=== PATIENT | male | born 1940 | race Caucasian/White ===

== ENCOUNTER 2023-11-13 08:36 | Outpatient (AMB) | payer MEDICARE, SELFPAY ==
--- NOTE | 2023-11-13 08:41 | A.OFFVIS_ITS ---
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 Endorses axial back pain with walking, improves with flexion and rest. He was evaluated by neurosurgeon years ago and offered surgery, he was told he would need to learn to walk again afterwards therefore he declined surgery. At that time he did PT which helped and pain had improved. 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 He again tried physical therapy several months ago with no improvement of his pain. He denies pain or fatigue of his legs with walking. Denies radiation of the pain down either lower extremity. Endorses some pain with twisting. No pain increase with coughing or sneezing. Denies pain with lumbar flexion or extension. He denies red flag symptoms including new loss of bowel, bladder or saddle anesthesia. Patient unable to take nonsteroidal anti-inflammatory medication due to current use of Brilinta. He takes Tylenol with minimal improvement. He has tried Voltaren gel, lidocaine patches all without improvement of his pain. Denies history of back surgeries, implantable devices, pacemaker or defibrillator. Recent x-rays reviewed, results as per below [facility] Medical History (Updated 11/13/23 @ 09:25 by Yeni Benedict, PROTOCOL OFFICER, COMMERCIAL ROOFING ESTIMATOR) Spinal stenosis Renal cyst PSA elevation Hypertension Hyperlipemia Review of Systems Const All systems reviewed & are unremarkable except as noted in HPI and below Physical Exam Vital Signs: Last Vital Signs Pulse 84 11/13/23 08:51 BP 164/90 H 11/13/23 08:51 Pulse Ox 97 11/13/23 08:51 Oxygen Delivery Method Room Air 11/13/23 08:51 BMI result Body Mass Index 29.5 General: awake, alert, oriented. Answers questions appropriately. Fully engaged in examination. Skin: warm, dry, intact HEENT: Normocephalic. Hearing intact. Cardiac: External chest normal in appearance. Respiratory: No cough, audible wheezing or stridor. Abdomen: without gross distension. MS: No obvious swelling or deformities. Able to stand on bilateral tiptoes and bilateral heels.? Able to transition from sit to stand unassisted. Ambulates with bilaterally normal heel strike and toe off Lumbar range of motion intact Bilateral lower extremity strength 5/5 SLR with dorsiflexion negative bilaterally Nontender over bilateral PSIS Valsalva negative for pain increase Neurological: Oriented to person, place, time and situation. Thought process intact. No gait abnormalities appreciated. Psychiatric: Appropriate mood and affect. Good judgment and insight. Results Reviewed Results Reviewed: 09/29/23 Assessment & Plan Assessment & Plan (1) Spinal stenosis: Code(s): M48.00 - Spinal stenosis, site unspecified Category: Medical (2) Lumbar spondylosis: Code(s): M47.816 - Spondylosis without myelopathy or radiculopathy, lumbar region Category: Medical Plan Mauro is a very pleasant 83-year-old male who presented to the office today for evaluation and management of his chronic lower back pain. Patient has exhausted conservative therapy including PT, topical NSAIDs, Tylenol all without improvement of his symptoms. Patient unable to take oral NSAIDs due to current use of Brilinta. History, physical exam and provocative testing consistent with lumbar spinal stenosis without neurogenic claudication and lumbar spondylosis. MRI of the lumbar spine without contrast ordered for evaluation. Patient will follow-up after the MRI, at which time we further discuss treatment options pending the results. All questions and concerns answered, patient agrees with the plan. Patient will follow-up in the office after MRI for review, sooner if needed Orders: Orders 2 MR lumbar spine wo con Today M54.9 - Dorsalgia, unspecified Coding Level of Care Code New Pt Level 4 (70962) Diagnoses Spinal stenosis M48.00 Lumbar spondylosis M47.816
[2023-11-13 08:51] VITALS: BP 164/90; PULSE 84; O2SAT 97; BMI 29.5
== END 2023-11-13 09:19 | disposition home or self-care (01) ==
PROVIDERS: PCP Internal Medicine; Visit Provider Registered Nurse Emergency
DX: M48.00 Spinal stenosis, site unspecified (principal); M47.816 Spondylosis without myelopathy or radiculopathy, lumbar region
CPT/HCPCS: 99203

== ENCOUNTER → 2023-11-13 08:36 | Outpatient (BNVA) | payer MEDICARE, SELFPAY | PROVIDERS: PCP Internal Medicine; Visit Provider Registered Nurse Emergency | DX: M48.00 Spinal stenosis, site unspecified (principal); M47.816 Spondylosis without myelopathy or radiculopathy, lumbar region | CPT/HCPCS: 99202 ==

== ENCOUNTER 2024-01-05 08:22 | Outpatient (REF) | payer MEDICARE, SELFPAY ==
--- NOTE | ~2024-01-05 | MR_ITS ---
EXAMINATION: MR LUMBAR SPINE WITHOUT CONTRAST CLINICAL INFORMATION: Dorsalgia and back pain. COMPARISON: MRI scan of the lumbar spine CT as 04/01/2021. TECHNIQUE: MRI of the lumbar spine was obtained using routine sequences without contrast. FINDINGS: VERTEBRAL BODIES AND PARASPINAL STRUCTURES: There is a sigmoid scoliosis, convex to the right in the mid lumbar region, unchanged. On the sagittal images there are mild grade 1 anterolistheses of L2 on L3 and L4 on L5, and there is a retrolisthesis of L1 on L2. 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 There is marked narrowing of intervertebral disc height with partial fusion of the vertebral bodies at L5-S1. There are prominent bilateral lateral osteophytes at this level. Narrowing of intervertebral disc height is also demonstrated at other levels with loss of signal consistent with multilevel disc desiccation. There are mild degenerative endplate contour changes with mild edematous signal anteriorly and toward the right at L5 which has developed since the prior study. There are ankylosis changes of the sacroiliac joints. Vertebral body heights are maintained and there are no acute fractures. There are Schmorl's nodes at adjacent endplates at multiple levels. There is increased T1 and T2 signal in the body of L2 diffusely consistent with a large hemangioma. A small hemangioma is seen in the body of T11. Overall, marrow signal is slightly heterogenous. The infrarenal abdominal aorta is tortuous. There are multiple bilateral parapelvic and cortical renal cysts which do not need further imaging evaluation. The visualized pelvic structures are unremarkable. CONUS MEDULLARIS AND CAUDA EQUINA: Normal, terminating at the level of L1-L2. The lower thoracic spinal cord appears normal. There is crowding of the cauda equina nerve roots at multiple levels due to spondylosis, most severe at L2-L3 and L3-L4. The filum terminale appears normal. SPINAL LEVELS: T11-T12: There is moderate bilateral facet arthropathy with focal right-sided ligamentum flavum thickening, which narrows the right subarticular recess. There is also distortion of the thecal sac on the right. There is a small posterior disc protrusion with an annular fissure in the midline with some distortion of the ventral thecal sac and narrowing of the subarticular recesses. The neural foramina are patent bilaterally. T12-L1: The facet joints appear normal bilaterally. Disc contour is normal. There is no central stenosis or foraminal narrowing. L1-L2: There is mild bilateral facet arthropathy. There is a broad-based posterior disc protrusion which slightly more prominent on the right and there is mild flattening of the ventral thecal sac with narrowing of the right subarticular recess. There is mild central stenosis. There is a right foraminal disc protrusion impinging on the exiting right L1 nerve root. L2-L3: There is moderate to severe bilateral facet arthropathy with ligamenta flava hypertrophy and facet joint effusions. There is a broad-based posterior disc protrusion which compresses the thecal sac and markedly narrows the bilateral subarticular recesses. There is severe central stenosis. There are left greater than right foraminal disc protrusions, and there is narrowing of the left neural foramen from a disc protrusion and facet osteophyte. Milder foraminal narrowing is seen on the right. L3-L4: There is markedly severe bilateral facet arthropathy with ligamenta flava hypertrophy and a possible synovial cyst developing anteromedially on the left. There is a broad-based posterior disc protrusion which compresses the thecal sac and markedly narrows the bilateral subarticular recesses, which appears slightly more prominent on the left. There is a left foraminal disc protrusion extending far laterally with impingement on the exiting and extraforaminal segments of the left L3 nerve root. A smaller disc protrusion is seen on the right. L4-L5: There is severe bilateral facet arthropathy with ligamenta flava hypertrophy. There is unroofing of the disc as a result of anterolisthesis and there is mild narrowing of the bilateral subarticular recesses with moderate central stenosis. There are bilateral inferior foraminal disc protrusions. L5-S1: There are moderate to severe bilateral facet arthropathic changes. There is a posterior disc osteophyte complex which is more prominent on the left with some flattening of the ventral thecal sac, and disc osteophytes extend into the neural foramina bilaterally with impingement on the exiting L5 nerve roots. There is no central stenosis. MR/MR lumbar spine wo con IMPRESSION: 1. At L2-L3 there is facet arthropathy and there is a broad-based posterior disc protrusion. There is severe central stenosis and there is narrowing of the bilateral subarticular recesses. There is left greater than right foraminal narrowing. 2. At L3-L4 there is markedly severe facet arthropathy. There is a broad-based posterior disc protrusion with marked narrowing of the bilateral subarticular recesses. There is a left foraminal disc protrusion extending far laterally with impingement on the exiting and extraforaminal segments of the left L3 nerve root. 3. At L4-L5 there is severe facet arthropathy. There is anterolisthesis and there is moderate central stenosis. 4. At L5-S1 there are facet arthropathic changes and there is a posterior disc osteophyte complex. There is no central stenosis. There are bilateral foraminal disc osteophyte complexes impinging on the exiting L5 nerve roots. 5. At L1-L2 there is facet arthropathy and there is a posterior disc protrusion. There is mild central stenosis. There is a right foraminal disc protrusion impinging on the exiting right L1 nerve root.
== END 2024-01-05 08:23 | disposition home or self-care (01) ==
LOC: HO.MRI 08:22
PROVIDERS: PCP Internal Medicine; Visit Provider Registered Nurse Emergency
DX: M54.9 Dorsalgia, unspecified (principal)
CPT/HCPCS: 72148

== ENCOUNTER 2024-02-10 10:16 | Outpatient (AMB) | payer MEDICARE, SELFPAY ==
[2024-02-10 10:19] VITALS: BP 138/76; PULSE 78; O2SAT 95; BMI 30.1
--- NOTE | 2024-02-10 10:19 | A.OFFVIS_ITS ---
Vital Signs 02/10/24 10:19 Height 5 ft 9 in Weight 204 lb BMI 30.1 BP 138/76 Blood Pressure Location Rt brachial Position Sitting Pulse 78 Pulse Source Pulse Oximeter Pulse Oximetry (%) 95 Oxygen Delivery Method Room Air Intake Visit Reasons: MRI FOLLOW UP/RESULTS Allergies No Known Allergies Allergy (Verified 02/10/24 10:21) Medication List - Last Reconciled 02/10/24 by Rosalina Chambers albuterol sulfate 90 mcg/actuation (ProAir HFA) 2 puffs inhalation Q6H PRN aspirin 81 mg PO DAILY atorvastatin 40 mg PO DAILY cyclobenzaprine 10 mg PO TID latanoprost 0.005% drps ophthalmic (eye) metoprolol succinate ER (Toprol XL) 25 mg PO DAILY mirtazapine 7.5 mg PO BEDTIME multivitamin 1 tab PO DAILY nifedipine ER 60 mg PO DAILY ticagrelor (Brilinta) 60 mg PO Q12H HPI Comments Details: Patient presents back to the office today for follow-up, review of recent MRI. MRI reviewed, results as per below. Pain today is rated as 4/10, worse with activity. He states over the last several weeks pain has suffering with midline axial back pain of his lower back. He has not been suffering with any pain, weakness, fatigue of his lower extremities even with walking. The pain in his lower back is exacerbated by activity, bending and twisting Denies radiation of the pain down either lower extremity. Denies red flag symptoms including new loss of bowel, bladder or saddle anesthesia. Prior: Mauro is a very pleasant 83-year-old male who presents to the office today for evaluation management of his chronic lower back pain Patient reports he has been suffering with this pain for ?a couple years . Endorses axial back pain with walking, improves with flexion and rest. He was evaluated by neurosurgeon years ago and offered surgery, he was told he would need to learn to walk again afterwards therefore he declined surgery. At that time he did PT which helped and pain had improved. 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 He again tried physical therapy several months ago with no improvement of his pain. He denies pain or fatigue of his legs with walking. Denies radiation of the pain down either lower extremity. Endorses some pain with twisting. No pain increase with coughing or sneezing. Denies pain with lumbar flexion or extension. He denies red flag symptoms including new loss of bowel, bladder or saddle anesthesia. Patient unable to take nonsteroidal anti-inflammatory medication due to current use of Brilinta. He takes Tylenol with minimal improvement. He has tried Voltaren gel, lidocaine patches all without improvement of his pain. Denies history of back surgeries, implantable devices, pacemaker or defibrillator. Recent x-rays reviewed, results as per below [facility] Medical History (Updated 11/13/23 @ 09:25 by Yeni Benedict, ACCOUNTS PAYABLE PROCESSOR, BALLISTICS TESTER) Spinal stenosis Renal cyst PSA elevation Hypertension Hyperlipemia Review of Systems Const All systems reviewed & are unremarkable except as noted in HPI and below Physical Exam Vital Signs: Last Vital Signs Pulse 78 02/10/24 10:19 BP 138/76 02/10/24 10:19 Pulse Ox 95 02/10/24 10:19 Oxygen Delivery Method Room Air 02/10/24 10:19 BMI result Body Mass Index 30.1 General: awake, alert, oriented. Answers questions appropriately. Fully engaged in examination. Skin: warm, dry, intact HEENT: Normocephalic. Hearing intact. Cardiac: External chest normal in appearance. Respiratory: No cough, audible wheezing or stridor. Abdomen: without gross distension. MS: No obvious swelling or deformities. Able to stand on bilateral tiptoes and bilateral heels.? Able to transition from sit to stand unassisted. Ambulates with bilaterally normal heel strike and toe off Lumbar range of motion intact Bilateral lower extremity strength 5/5 SLR with dorsiflexion negative bilaterally Nontender over bilateral PSIS Valsalva negative for pain increase Neurological: Oriented to person, place, time and situation. Thought process intact. No gait abnormalities appreciated. Psychiatric: Appropriate mood and affect. Good judgment and insight. Results Reviewed Results Reviewed: 01/05/24 MRI LS FINDINGS: VERTEBRAL BODIES AND PARASPINAL STRUCTURES: There is a sigmoid scoliosis, convex to the right in the mid lumbar region, unchanged. On the sagittal images there are mild grade 1 anterolistheses of L2 on L3 and L4 on L5, and there is a retrolisthesis of L1 on L2. 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 There is marked narrowing of intervertebral disc height with partial fusion of the vertebral bodies at L5-S1. There are prominent bilateral lateral osteophytes at this level. Narrowing of intervertebral disc height is also demonstrated at other levels with loss of signal consistent with multilevel disc desiccation. There are mild degenerative endplate contour changes with mild edematous signal anteriorly and toward the right at L5 which has developed since the prior study. There are ankylosis changes of the sacroiliac joints. Vertebral body heights are maintained and there are no acute fractures. There are Schmorl's nodes at adjacent endplates at multiple levels. There is increased T1 and T2 signal in the body of L2 diffusely consistent with a large hemangioma. A small hemangioma is seen in the body of T11. Overall, marrow signal is slightly heterogenous. The infrarenal abdominal aorta is tortuous. There are multiple bilateral parapelvic and cortical renal cysts which do not need further imaging evaluation. The visualized pelvic structures are unremarkable. CONUS MEDULLARIS AND CAUDA EQUINA: Normal, terminating at the level of L1-L2. The lower thoracic spinal cord appears normal. There is crowding of the cauda equina nerve roots at multiple levels due to spondylosis, most severe at L2-L3 and L3-L4. The filum terminale appears normal. SPINAL LEVELS: T11-T12: There is moderate bilateral facet arthropathy with focal right-sided ligamentum flavum thickening, which narrows the right subarticular recess. There is also distortion of the thecal sac on the right. There is a small posterior disc protrusion with an annular fissure in the midline with some distortion of the ventral thecal sac and narrowing of the subarticular recesses. The neural foramina are patent bilaterally. T12-L1: The facet joints appear normal bilaterally. Disc contour is normal. There is no central stenosis or foraminal narrowing. L1-L2: There is mild bilateral facet arthropathy. There is a broad-based posterior disc protrusion which slightly more prominent on the right and there is mild flattening of the ventral thecal sac with narrowing of the right subarticular recess. There is mild central stenosis. There is a right foraminal disc protrusion impinging on the exiting right L1 nerve root. L2-L3: There is moderate to severe bilateral facet arthropathy with ligamenta flava hypertrophy and facet joint effusions. There is a broad-based posterior disc protrusion which compresses the thecal sac and markedly narrows the bilateral subarticular recesses. There is severe central stenosis. There are left greater than right foraminal disc protrusions, and there is narrowing of the left neural foramen from a disc protrusion and facet osteophyte. Milder foraminal narrowing is seen on the right. L3-L4: There is markedly severe bilateral facet arthropathy with ligamenta flava hypertrophy and a possible synovial cyst developing anteromedially on the left. There is a broad-based posterior disc protrusion which compresses the thecal sac and markedly narrows the bilateral subarticular recesses, which appears slightly more prominent on the left. There is a left foraminal disc protrusion extending far laterally with impingement on the exiting and extraforaminal segments of the left L3 nerve root. A smaller disc protrusion is seen on the right. L4-L5: There is severe bilateral facet arthropathy with ligamenta flava hypertrophy. There is unroofing of the disc as a result of anterolisthesis and there is mild narrowing of the bilateral subarticular recesses with moderate central stenosis. There are bilateral inferior foraminal disc protrusions. L5-S1: There are moderate to severe bilateral facet arthropathic changes. There is a posterior disc osteophyte complex which is more prominent on the left with some flattening of the ventral thecal sac, and disc osteophytes extend into the neural foramina bilaterally with impingement on the exiting L5 nerve roots. There is no central stenosis. MR/MR lumbar spine wo con IMPRESSION: 1. At L2-L3 there is facet arthropathy and there is a broad-based posterior disc protrusion. There is severe central stenosis and there is narrowing of the bilateral subarticular recesses. There is left greater than right foraminal narrowing. 2. At L3-L4 there is markedly severe facet arthropathy. There is a broad-based posterior disc protrusion with marked narrowing of the bilateral subarticular recesses. There is a left foraminal disc protrusion extending far laterally with impingement on the exiting and extraforaminal segments of the left L3 nerve root. 3. At L4-L5 there is severe facet arthropathy. There is anterolisthesis and there is moderate central stenosis. 4. At L5-S1 there are facet arthropathic changes and there is a posterior disc osteophyte complex. There is no central stenosis. There are bilateral foraminal disc osteophyte complexes impinging on the exiting L5 nerve roots. 5. At L1-L2 there is facet arthropathy and there is a posterior disc protrusion. There is mild central stenosis. There is a right foraminal disc protrusion impinging on the exiting right L1 nerve root. Assessment & Plan Assessment & Plan (1) Spinal stenosis: Code(s): M48.00 - Spinal stenosis, site unspecified Category: Medical (2) Lumbar spondylosis: Code(s): M47.816 - Spondylosis without myelopathy or radiculopathy, lumbar region Category: Medical Plan Mauro is a very pleasant 83-year-old male who presented to the office today for follow-up lower back pain Patient has exhausted conservative therapy including PT, topical NSAIDs, Tylenol all without improvement of his symptoms. Patient unable to take oral NSAIDs due to current use of Brilinta. MRI reviewed, results as per above Will schedule patient for bilateral diagnostic L3, L4, DR L5 medial branch bloc ks with local anesthetic. Patient currently taking Brilinta, this will need to be held for the procedure per PCP or specialist instructions. All questions and concerns answered, patient agrees with the plan. Patient will follow-up in the office after injections, sooner if needed Coding Level of Care Code Est Pt Level 3 (49076) Diagnoses Spinal stenosis M48.00 Lumbar spondylosis M47.816
== END 2024-02-10 11:58 | disposition home or self-care (01) ==
PROVIDERS: PCP Internal Medicine; Referring Provider Physician Assistant Medical; Visit Provider Registered Nurse Emergency
DX: M48.00 Spinal stenosis, site unspecified (principal); M47.816 Spondylosis without myelopathy or radiculopathy, lumbar region
CPT/HCPCS: 99213

== ENCOUNTER → 2024-02-10 10:16 | Outpatient (BNVA) | payer MEDICARE, SELFPAY | PROVIDERS: PCP Internal Medicine; Referring Provider Physician Assistant Medical; Visit Provider Registered Nurse Emergency | DX: M48.00 Spinal stenosis, site unspecified (principal); M47.816 Spondylosis without myelopathy or radiculopathy, lumbar region; I10 Essential (primary) hypertension | CPT/HCPCS: 99212 ==

== ENCOUNTER 2024-04-27 06:10 | Outpatient (REF) | payer MEDICARE, SELFPAY | END 2024-04-27 06:11 | disposition home or self-care (01) | LOC: CF 06:10 | PROVIDERS: Visit Provider Anesthesiology | DX: M47.816 Spondylosis without myelopathy or radiculopathy, lumbar region (principal); M48.00 Spinal stenosis, site unspecified | CPT/HCPCS: 64493; 64494; J2003; J2795; Q9967 ==

== ENCOUNTER 2024-04-27 07:07 | Outpatient (AMB) | payer MEDICARE, SELFPAY ==
--- NOTE | 2024-04-27 07:19 | A.OFFVIS_ITS ---
Vital Signs 04/27/24 07:20 BP 131/73 Blood Pressure Location Lt brachial Position Sitting Respiration 16 Pulse 87 Pulse Source Pulse Oximeter Pulse Oximetry (%) 94 Oxygen Delivery Method Room Air Comment Pre-op Intake Visit Reasons: BILATERAL DIAGNOSTIC L3, L4, DRL5 MBB Allergies No Known Allergies Allergy (Verified 04/27/24 07:20) Medication List - Last Reconciled 04/27/24 by Rosalina Chambers albuterol sulfate 90 mcg/actuation (ProAir HFA) 2 puffs inhalation Q6H PRN aspirin 81 mg PO DAILY atorvastatin 40 mg PO DAILY cyclobenzaprine 10 mg PO TID latanoprost 0.005% drps ophthalmic (eye) metoprolol succinate ER (Toprol XL) 25 mg PO DAILY mirtazapine 7.5 mg PO BEDTIME multivitamin 1 tab PO DAILY nifedipine ER 60 mg PO DAILY PFSH Medical History (Updated 11/13/23 @ 09:25 by Yeni Benedict, SHUTTLE REPAIRER, CIRCULATION TENDER) Spinal stenosis Renal cyst PSA elevation Hypertension Hyperlipemia Physical Exam Vital Signs: Last Vital Signs Pulse 87 04/27/24 07:20 Resp 16 04/27/24 07:20 BP 131/73 04/27/24 07:20 Pulse Ox 94 04/27/24 07:20 Oxygen Delivery Method Room Air 04/27/24 07:20 Assessment & Plan Assessment & Plan (1) Spinal stenosis: Code(s): M48.00 - Spinal stenosis, site unspecified Category: Medical (2) Lumbar spondylosis: Code(s): M47.816 - Spondylosis without myelopathy or radiculopathy, lumbar region Category: Medical Plan: Diagnostic medial branch block L3,L4 dorsal ramus L5 bilateral.? ? ?Informed consent was explained to the patient. All questions were explained and? answered.? The patient was taken inside the operating room where she was positioned prone on the operating table. Time-out was performed delineating correct site, side, the nature of the procedure, patient's allergy, . All operating room staff was participating in OR time-out procedure. ? ? The lower back was prepped with ChloraPrep and draped with sterile towels.? C- arm was brought over the operating field and sq picture of L4-, L5 vertebra and S1 AREA were delineated on the screen.? Point of interest were delineated as confluence of superior articular process of L4 and L5 vertebra bilaterally with corresponding transverse processes as well as confluence of the sacral alae bilaterally with superior articular process of S1.? The projection of the point of interest to the skin were injected with the small amount of local anesthetic lidocaine 2% mixed with ropivacaine 0.5% 1-1 approcimately 1 cc.? After that 22 gauge 3.5 inch spinal needle was driven sequentially to the points of interest in tunnel vision fashion. After needles gently contacted the bone at the point of interests the needle was injected with small amount of the contrast.? The injection of the contrast did not demonstrate any intravascular or intrathecal spread of the contrast.? After that injection of the? ropivacaine 0.5%-1cc was performed at each needle location.??after that the needles were removed and Bandaids were applied. ? Upon completion of the injections? needle was? removed and sterile Band-Aids were applied.? The patient tolerated procedure very well. Plan Mauro is a very pleasant 83-year-old male who presented to the office today for follow-up lower back pain Patient has exhausted conservative therapy including PT, topical NSAIDs, Tylenol all without improvement of his symptoms. Patient unable to take oral NSAIDs due to current use of Brilinta. MRI reviewed, results as per above Will schedule patient for bilateral diagnostic L3, L4, DR L5 medial branch blocks with local anesthetic. Patient currently taking Brilinta, this will need to be held for the procedure per PCP or specialist instructions. All questions and concerns answered, patient agrees with the plan. Patient will follow-up in the office after injections, sooner if needed Orders: Orders [place] guidance in treatment room Today M47.816 - Spondylosis without myelopathy or radiculopathy, lumbar region Coding Level of Care Code Procedure Only Diagnoses Spinal stenosis M48.00 Lumbar spondylosis M47.816
[2024-04-27 07:20] VITALS: BP 131/73; PULSE 87; RESP 16; O2SAT 94
== END 2024-04-27 08:35 | disposition home or self-care (01) ==
LOC: HO.PMCPRC 07:07
PROVIDERS: PCP Internal Medicine; Visit Provider Anesthesiology
DX: M47.816 Spondylosis without myelopathy or radiculopathy, lumbar region (principal); M48.00 Spinal stenosis, site unspecified
CPT/HCPCS: 64493; 64494

== ENCOUNTER 2024-04-30 08:51 | Outpatient (AMB) | payer MEDICARE, SELFPAY ==
[2024-04-30 08:59] VITALS: BP 138/80; PULSE 95; O2SAT 94; BMI 28.8
--- NOTE | 2024-04-30 08:59 | A.OFFVIS_ITS ---
Vital Signs 04/30/24 08:59 Height 5 ft 9 in Weight 195 lb BMI 28.8 BP 138/80 Blood Pressure Location Lt brachial Position Sitting Pulse 95 Pulse Source Pulse Oximeter Pulse Oximetry (%) 94 Oxygen Delivery Method Room Air Intake Visit Reasons: BILATERAL DIAGNOSTIC L3, L4, DRL5 MBB Allergies No Known Allergies Allergy (Verified 04/30/24 08:59) Medication List - Last Reconciled 04/30/24 by Rosalina Chambers albuterol sulfate 90 mcg/actuation (ProAir HFA) 2 puffs inhalation Q6H PRN aspirin 81 mg PO DAILY atorvastatin 40 mg PO DAILY cyclobenzaprine 10 mg PO TID latanoprost 0.005% drps ophthalmic (eye) metoprolol succinate ER (Toprol XL) 25 mg PO DAILY mirtazapine 7.5 mg PO BEDTIME multivitamin 1 tab PO DAILY nifedipine ER 60 mg PO DAILY HPI Comments Details: Mauro presents back to the office today for follow-up, 3 days status post bilateral diagnostic L3-L4 DR L5 medial branch blocks with local anesthetic. He reports 100% pain relief for 12 hours after the procedure with improvement in functional mobility Denies any untoward effects of the procedure. Prior: Patient presents back to the office today for follow-up, review of recent MRI. MRI reviewed, results as per below. Pain today is rated as 4/10, worse with activity. He states over the last several weeks pain has suffering with midline axial back pain of his lower back. He has not been suffering with any pain, weakness, fatigue of his lower extremities even with walking. The pain in his lower back is exacerbated by activity, bending and twisting Denies radiation of the pain down either lower extremity. Denies red flag symptoms including new loss of bowel, bladder or saddle anesth esia. Prior: Mauro is a very pleasant 83-year-old male who presents to the office today for evaluation management of his chronic lower back pain Patient reports he has been suffering with this pain for ?a couple years . Endorses axial back pain with walking, improves with flexion and rest. He was evaluated by neurosurgeon years ago and offered surgery, he was told he would need to learn to walk again afterwards therefore he declined surgery. At that time he did PT which helped and pain had improved. 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 He again tried physical therapy several months ago with no improvement of his pain. He denies pain or fatigue of his legs with walking. Denies radiation of the pain down either lower extremity. Endorses some pain with twisting. No pain increase with coughing or sneezing. Denies pain with lumbar flexion or extension. He denies red flag symptoms including new loss of bowel, bladder or saddle anesthesia. Patient unable to take nonsteroidal anti-inflammatory medication due to current use of Brilinta. He takes Tylenol with minimal improvement. He has tried Voltaren gel, lidocaine patches all without improvement of his pain. Denies history of back surgeries, implantable devices, pacemaker or defibrillator. Recent x-rays reviewed, results as per below [facility] Medical History (Updated 11/13/23 @ 09:25 by Yeni Benedict APRN, HAMLET) Spinal stenosis Renal cyst PSA elevation Hypertension Hyperlipemia Review of Systems Const All systems reviewed & are unremarkable except as noted in HPI and below Physical Exam Vital Signs: Last Vital Signs Pulse 95 04/30/24 08:59 BP 138/80 04/30/24 08:59 Pulse Ox 94 04/30/24 08:59 Oxygen Delivery Method Room Air 04/30/24 08:59 BMI result Body Mass Index 28.8 General: awake, alert, oriented. Answers questions appropriately. Fully engaged in examination. Skin: warm, dry, intact HEENT: Normocephalic. Hearing intact. Cardiac: External chest normal in appearance. Respiratory: No cough, audible wheezing or stridor. Abdomen: without gross distension. MS: No obvious swelling or deformities. Able to transition from sit to stand unassisted. Ambulates with bilaterally normal heel strike and toe off Neurological: Oriented to person, place, time and situation. Thought process intact. No gait abnormalities appreciated. Psychiatric: Appropriate mood and affect. Good judgment and insight. Results Reviewed Results Reviewed: 01/05/24 MRI LS FINDINGS: VERTEBRAL BODIES AND PARASPINAL STRUCTURES: There is a sigmoid scoliosis, convex to the right in the mid lumbar region, unchanged. On the sagittal images there are mild grade 1 anterolistheses of L2 on L3 and L4 on L5, and there is a retrolisthesis of L1 on L2. 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 There is marked narrowing of intervertebral disc height with partial fusion of the vertebral bodies at L5-S1. There are prominent bilateral lateral osteophytes at this level. Narrowing of intervertebral disc height is also demonstrated at other levels with loss of signal consistent with multilevel disc desiccation. There are mild degenerative endplate contour changes with mild edematous signal anteriorly and toward the right at L5 which has developed since the prior study. There are ankylosis changes of the sacroiliac joints. Vertebral body heights are maintained and there are no acute fractures. There are Schmorl's nodes at adjacent endplates at multiple levels. There is increased T1 and T2 signal in the body of L2 diffusely consistent with a large hemangioma. A small hemangioma is seen in the body of T11. Overall, marrow signal is slightly heterogenous. The infrarenal abdominal aorta is tortuous. There are multiple bilateral parapelvic and cortical renal cysts which do not need further imaging evaluation. The visualized pelvic structures are unremarkable. CONUS MEDULLARIS AND CAUDA EQUINA: Normal, terminating at the level of L1-L2. The lower thoracic spinal cord appears normal. There is crowding of the cauda equina nerve roots at multiple levels due to spondylosis, most severe at L2-L3 and L3-L4. The filum terminale appears normal. SPINAL LEVELS: T11-T12: There is moderate bilateral facet arthropathy with focal right-sided ligamentum flavum thickening, which narrows the right subarticular recess. There is also distortion of the thecal sac on the right. There is a small posterior disc protrusion with an annular fissure in the midline with some distortion of the ventral thecal sac and narrowing of the subarticular recesses. The neural foramina are patent bilaterally. T12-L1: The facet joints appear normal bilaterally. Disc contour is normal. There is no central stenosis or foraminal narrowing. L1-L2: There is mild bilateral facet arthropathy. There is a broad-based posterior disc protrusion which slightly more prominent on the right and there is mild flattening of the ventral thecal sac with narrowing of the right subarticular recess. There is mild central stenosis. There is a right foraminal disc protrusion impinging on the exiting right L1 nerve root. L2-L3: There is moderate to severe bilateral facet arthropathy with ligamenta flava hypertrophy and facet joint effusions. There is a broad-based posterior disc protrusion which compresses the thecal sac and markedly narrows the bilateral subarticular recesses. There is severe central stenosis. There are left greater than right foraminal disc protrusions, and there is narrowing of the left neural foramen from a disc protrusion and facet osteophyte. Milder foraminal narrowing is seen on the right. L3-L4: There is markedly severe bilateral facet arthropathy with ligamenta flava hypertrophy and a possible synovial cyst developing anteromedially on the left. There is a broad-based posterior disc protrusion which compresses the thecal sac and markedly narrows the bilateral subarticular recesses, which appears slightly more prominent on the left. There is a left foraminal disc protrusion extending far laterally with impingement on the exiting and extraforaminal segments of the left L3 nerve root. A smaller disc protrusion is seen on the right. L4-L5: There is severe bilateral facet arthropathy with ligamenta flava hypertrophy. There is unroofing of the disc as a result of anterolisthesis and there is mild narrowing of the bilateral subarticular recesses with moderate central stenosis. There are bilateral inferior foraminal disc protrusions. L5-S1: There are moderate to severe bilateral facet arthropathic changes. There is a posterior disc osteophyte complex which is more prominent on the left with some flattening of the ventral thecal sac, and disc osteophytes extend into the neural foramina bilaterally with impingement on the exiting L5 nerve roots. There is no central stenosis. MR/MR lumbar spine wo con IMPRESSION: 1. At L2-L3 there is facet arthropathy and there is a broad-based posterior disc protrusion. There is severe central stenosis and there is narrowing of the bilateral subarticular recesses. There is left greater than right foraminal narrowing. 2. At L3-L4 there is markedly severe facet arthropathy. There is a broad-based posterior disc protrusion with marked narrowing of the bilateral subarticular recesses. There is a left foraminal disc protrusion extending far laterally with impingement on the exiting and extraforaminal segments of the left L3 nerve root. 3. At L4-L5 there is severe facet arthropathy. There is anterolisthesis and there is moderate central stenosis. 4. At L5-S1 there are facet arthropathic changes and there is a posterior disc osteophyte complex. There is no central stenosis. There are bilateral foraminal disc osteophyte complexes impinging on the exiting L5 nerve roots. 5. At L1-L2 there is facet arthropathy and there is a posterior disc protrusion. There is mild central stenosis. There is a right foraminal disc protrusion impinging on the exiting right L1 nerve root. Assessment & Plan Assessment & Plan (1) Spinal stenosis: Code(s): M48.00 - Spinal stenosis, site unspecified Category: Medical (2) Lumbar spondylosis: Code(s): M47.816 - Spondylosis without myelopathy or radiculopathy, lumbar region Category: Medical Plan Mauro presented back to the office today for follow-up, 3 days status post bilateral diagnostic L3-L4 DR L5 medial branch blocks with local anesthetic He reports 100% pain relief for 12 hours after the procedure with improvement in functional mobility Patient has exhausted conservative therapy including PT, topical NSAIDs, Tylenol all without improvement of his symptoms. Patient unable to take oral NSAIDs due to current use of Brilinta. Discussed options for treatment including diagnostic interventional testing, epidural steroid injections, peripheral nerve stimulation with Sprint, RFA and more permanent neuromodulation. He is not interested in sprint PNS trial. He has elected to proceed with bilateral L3-L4 DR L5 RFA with sedation. Patient was advised that this may req uire repeat diagnostic injections pending insurance stipulations. Patient verbalizes understanding All questions and concerns answered, patient agrees with the plan. Patient will follow-up in the office after procedure, sooner if needed Coding Level of Care Code Est Pt Level 3 (32339) Complex EM visit Add On G2211 Diagnoses Spinal stenosis M48.00 Lumbar spondylosis M47.816
== END 2024-04-30 09:22 | disposition home or self-care (01) ==
PROVIDERS: PCP Internal Medicine; Visit Provider Registered Nurse Emergency
DX: M48.00 Spinal stenosis, site unspecified (principal); M47.816 Spondylosis without myelopathy or radiculopathy, lumbar region
CPT/HCPCS: 99213; G2211

== ENCOUNTER → 2024-04-30 08:51 | Outpatient (BNVA) | payer MEDICARE, SELFPAY | PROVIDERS: PCP Internal Medicine; Visit Provider Registered Nurse Emergency | DX: M48.00 Spinal stenosis, site unspecified (principal); M47.816 Spondylosis without myelopathy or radiculopathy, lumbar region | CPT/HCPCS: 99212 ==

== ENCOUNTER 2024-06-04 10:03 | Outpatient (AMB) | payer MEDICARE, SELFPAY ==
--- NOTE | 2024-06-04 10:07 | A.OFFVIS_ITS ---
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 He reports 100% pain relief for 12 hours after the procedure with improvement in functional mobility Denies any untoward effects of the procedure. Prior: Patient presents back to the office today for follow-up, review of recent MRI. MRI reviewed, results as per below. Pain today is rated as 4/10, worse with activity. He states over the last several weeks pain has suffering with midline axial back pain of his lower back. He has not been suffering with any pain, weakness, fatigue of his lower extremities even with walking. The pain in his lower back is exacerbated by activity, bending and twisting Denies radiation of the pain down either lower extremity. Denies red flag symptoms including new loss of bowel, bladder or saddle anesthesia. Prior: Mauro is a very pleasant 83-year-old male who presents to the office today for evaluation management of his chronic lower back pain Patient reports he has been suffering with this pain for ?a couple years . Endorses axial back pain with walking, improves with flexion and rest. He was evaluated by neurosurgeon years ago and offered surgery, he was told he would need to learn to walk again afterwards therefore he declined surgery. At that time he did PT which helped and pain had improved. 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 He again tried physical therapy several months ago with no improvement of his pain. He denies pain or fatigue of his legs with walking. Denies radiation of the pain down either lower extremity. Endorses some pain with twisting. No pain increase with coughing or sneezing. Denies pain with lumbar flexion or extension. He denies red flag symptoms including new loss of bowel, bladder or saddle anesthesia. Patient unable to take nonsteroidal anti-inflammatory medication due to current use of Brilinta. He takes Tylenol with minimal improvement. He has tried Voltaren gel, lidocaine patches all without improvement of his pain. Denies history of back surgeries, implantable devices, pacemaker or defibrillator. Recent x-rays reviewed, results as per below [facility] Medical History (Updated 11/13/23 @ 09:25 by Yeni Benedict, LOCKSTITCH SHOULDER JOINER, WATER/WASTEWATER PROJECT ENGINEER) Spinal stenosis Renal cyst PSA elevation Hypertension Hyperlipemia Physical Exam Vital Signs: Last Vital Signs Pulse 78 06/04/24 10:10 BP 184/84 H 06/04/24 10:10 Pulse Ox 97 06/04/24 10:10 Oxygen Delivery Method Room Air 06/04/24 10:10 BMI result Body Mass Index 30.0 General: awake, alert, oriented. Answers questions appropriately. Fully engaged in examination. Skin: warm, dry, intact HEENT: Normocephalic. Hearing intact. Cardiac: External chest normal in appearance. Respiratory: No cough, audible wheezing or stridor. Abdomen: without gross distension. MS: No obvious swelling or deformities. Able to transition from sit to stand unassisted. Ambulates with bilaterally normal heel strike and toe off Neurological: Oriented to person, place, time and situation. Thought process intact. No gait abnormalities appreciated. Psychiatric: Appropriate mood and affect. Good judgment and insight. Results Reviewed Results Reviewed: 01/05/24 MRI LS FINDINGS: VERTEBRAL BODIES AND PARASPINAL STRUCTURES: There is a sigmoid scoliosis, convex to the right in the mid lumbar region, unchanged. On the sagittal images there are mild grade 1 anterolistheses of L2 on L3 and L4 on L5, and there is a retrolisthesis of L1 on L2. 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 There is marked narrowing of intervertebral disc height with partial fusion of the vertebral bodies at L5-S1. There are prominent bilateral lateral osteophytes at this level. Narrowing of intervertebral disc height is also demonstrated at other levels with loss of signal consistent with multilevel disc desiccation. There are mild degenerative endplate contour changes with mild edematous signal anteriorly and toward the right at L5 which has developed since the prior study. There are ankylosis changes of the sacroiliac joints. Vertebral body heights are maintained and there are no acute fractures. There are Schmorl's nodes at adjacent endplates at multiple levels. There is increased T1 and T2 signal in the body of L2 diffusely consistent with a large hemangioma. A small hemangioma is seen in the body of T11. Overall, marrow signal is slightly heterogenous. The infrarenal abdominal aorta is tortuous. There are multiple bilateral parapelvic and cortical renal cysts which do not need further imaging evaluation. The visualized pelvic structures are unremarkable. CONUS MEDULLARIS AND CAUDA EQUINA: Normal, terminating at the level of L1-L2. The lower thoracic spinal cord appears normal. There is crowding of the cauda equina nerve roots at multiple levels due to spondylosis, most severe at L2-L3 and L3-L4. The filum terminale appears normal. SPINAL LEVELS: T11-T12: There is moderate bilateral facet arthropathy with focal right-sided ligamentum flavum thickening, which narrows the right subarticular recess. There is also distortion of the thecal sac on the right. There is a small posterior disc protrusion with an annular fissure in the midline with some distortion of the ventral thecal sac and narrowing of the subarticular recesses. The neural foramina are patent bilaterally. T12-L1: The facet joints appear normal bilaterally. Disc contour is normal. There is no central stenosis or foraminal narrowing. L1-L2: There is mild bilateral facet arthropathy. There is a broad-based posterior disc protrusion which slightly more prominent on the right and there is mild flattening of the ventral thecal sac with narrowing of the right subarticular recess. There is mild central stenosis. There is a right foraminal disc protrusion impinging on the exiting right L1 nerve root. L2-L3: There is moderate to severe bilateral facet arthropathy with ligamenta flava hypertrophy and facet joint effusions. There is a broad-based posterior disc protrusion which compresses the thecal sac and markedly narrows the bilateral subarticular recesses. There is severe central stenosis. There are left greater than right foraminal disc protrusions, and there is narrowing of the left neural foramen from a disc protrusion and facet osteophyte. Milder foraminal narrowing is seen on the right. L3-L4: There is markedly severe bilateral facet arthropathy with ligamenta flava hypertrophy and a possible synovial cyst developing anteromedially on the left. There is a broad-based posterior disc protrusion which compresses the thecal sac and markedly narrows the bilateral subarticular recesses, which appears slightly more prominent on the left. There is a left foraminal disc protrusion extending far laterally with impingement on the exiting and extraforaminal segments of the left L3 nerve root. A smaller disc protrusion is seen on the right. L4-L5: There is severe bilateral facet arthropathy with ligamenta flava hypertrophy. There is unroofing of the disc as a result of anterolisthesis and there is mild narrowing of the bilateral subarticular recesses with moderate central stenosis. There are bilateral inferior foraminal disc protrusions. L5-S1: There are moderate to severe bilateral facet arthropathic changes. There is a posterior disc osteophyte complex which is more prominent on the left with some flattening of the ventral thecal sac, and disc osteophytes extend into the neural foramina bilaterally with impingement on the exiting L5 nerve roots. There is no central stenosis. MR/MR lumbar spine wo con IMPRESSION: 1. At L2-L3 there is facet arthropathy and there is a broad-based posterior disc protrusion. There is severe central stenosis and there is narrowing of the bilateral subarticular recesses. There is left greater than right foraminal narrowing. 2. At L3-L4 there is markedly severe facet arthropathy. There is a broad-based posterior disc protrusion with marked narrowing of the bilateral subarticular recesses. There is a left foraminal disc protrusion extending far laterally with impingement on the exiting and extraforaminal segments of the left L3 nerve root. 3. At L4-L5 there is severe facet arthropathy. There is anterolisthesis and there is moderate central stenosis. 4. At L5-S1 there are facet arthropathic changes and there is a posterior disc osteophyte complex. There is no central stenosis. There are bilateral foraminal disc osteophyte complexes impinging on the exiting L5 nerve roots. 5. At L1-L2 there is facet arthropathy and there is a posterior disc protrusion. There is mild central stenosis. There is a right foraminal disc protrusion impinging on the exiting right L1 nerve root. Assessment & Plan Assessment & Plan (1) Spinal stenosis: Code(s): M48.00 - Spinal stenosis, site unspecified Category: Medical (2) Lumbar spondylosis: Code(s): M47.816 - Spondylosis without myelopathy or radiculopathy, lumbar region Category: Medical Plan Mauro presented back to the office today for follow-up lower back pain 04/2024 underwent diagnostic bilateral L3 L4 DR L5 MBBs with 100% pain relief for 12 hours after the procedure with improvement in functional mobility Patient has exhausted conservative therapy including PT, topical NSAIDs, Tylenol all without improvement of his symptoms. Patient unable to take oral NSAIDs due to current use of Brilinta. Discussed options for treatment including diagnostic interventional testing, epidural steroid injections, peripheral nerve stimulation with Sprint, RFA and more permanent neuromodulation. He is not interested in sprint PNS trial. Initially he was interested in radiofrequency ablation but states that the process has been taking too long and he can not continue suffering pain. Would like to proceed with therapeutic injections. Will schedule for fluoroscopy guided therapeutic L3-L4 DR L5 medial branch blocks with local anesthetic. All questions and concerns answered, patient agrees with the plan. Patient will follow-up in the office after procedure, sooner if needed Coding Level of Care Code Est Pt Level 3 (78003) Complex EM visit Add On G2211 Diagnoses Spinal stenosis M48.00 Lumbar spondylosis M47.816
[2024-06-04 10:10] VITALS: BP 184/84; PULSE 78; O2SAT 97
== END 2024-06-04 10:25 | disposition home or self-care (01) ==
PROVIDERS: PCP Internal Medicine; Visit Provider Registered Nurse Emergency
DX: M48.00 Spinal stenosis, site unspecified (principal); M47.816 Spondylosis without myelopathy or radiculopathy, lumbar region
CPT/HCPCS: 99213; G2211

== ENCOUNTER → 2024-06-04 10:03 | Outpatient (BNVA) | payer MEDICARE, SELFPAY | PROVIDERS: PCP Internal Medicine; Visit Provider Registered Nurse Emergency | DX: M48.00 Spinal stenosis, site unspecified (principal); M47.816 Spondylosis without myelopathy or radiculopathy, lumbar region | CPT/HCPCS: 99212 ==

== ENCOUNTER 2024-08-17 06:16 | Outpatient (REF) | payer MEDICARE, SELFPAY ==
--- NOTE | ~2024-08-17 | FL_ITS ---
EXAMINATION: FL GUIDANCE ONLY HISTORY: M47.816 - Spondylosis without myelopathy or radiculopathy, lumbar region COMPARISON: None available. TECHNIQUE: Fluoroscopy time: 0.6 minutes. Cumulative Dose: 8.33 mGy. DAP: 0.144 mGym2 Images: 12. FINDINGS: Images demonstrate needles and contrast material in the regions of the bilateral L3-4, L4-5, L5-S1 facet joints. FL/FL guidance in treatment room IMPRESSION: Fluoroscopy during procedure. Please see procedure report for additional information. Electronically signed by: Sam Dalal MD 08/17/2024 01:27 PM JYOTI
--- OUTSIDE RECORDS SUMMARY | 2024-08-17 06:19 | XMS_ITS | Clinical Summary ---
Author Organization LL [address] [facility] Address [address] [place] [address] Phone Care Team Providers Care Ironer Name Role Phone Keith Diaz MD Primary Care Provider [phone] Allergies No known active allergies Medications aspirin 81 mg EC tablet Take 1 tablet (81 mg total) by mouth 1 (one) time each day. 3 Active ticagrelor (BRILINTA) 90 mg tablet Take 1 tablet (90 mg total) by mouth 2 (two) times a day. Active latanoprost (XALATAN) 0.005 % ophthalmic solution Administer 1 drop into both eyes at bedtime. Active ce-qua-SR-vit M-txzlcy-jvrjoir (PreserVision AREDS 2 Plus MV) 200 mcg-15 mcg- 5 mg-1 mg capsule Take 1 capsule by mouth 1 (one) time each day. Active atorvastatin (LIPITOR) 40 mg tablet Take 1 tablet (40 mg total) by mouth 1 (one) time each day. 3 Active metoprolol succinate (TOPROL-XL) 25 mg 24 hr tablet Take 1 tablet (25 mg total) by mouth 1 (one) time each day. 3 Active albuterol HFA (PROAIR HFA ; PROVENTIL HFA ; VENTOLIN HFA) 90 mcg/actuation inhaler Inhale 2 puffs every 6 (six) hours if needed for wheezing or shortness of breath. 3 Active NIFEdipine CC (ADALAT CC) 60 mg 24 hr tablet Take 1 tablet (60 mg total) by mouth 1 (one) time each day. Active multivit-min/iron /folic acid/K (ADULTS MULTIVITAMIN ORAL) Take by mouth daily. Active Active Problems Problem Noted Date Diagnosed Date History of cardiac catheterization 08/26/2023 Right leg swelling 07/28/2023 Overview (08/26/2023): AND REDNESS Edema of right lower extremity 07/28/2023 Trauma 07/24/2023 Overview (08/26/2023): OCCULT PVC (premature ventricular contraction) 01/17/20 Overview (08/26/2023): Last Assessment & Plan: The patient underwent a 24-hour Holter monitor completed January 2023 which showed frequent PACs with a PAC burden of 4.4%. He denies any palpitations or dizziness. He will continue on his current dose of metoprolol. His heart rate is adequate today. Aneurysm of ascending aorta 12/18/2022 Overview (08/26/2023): Last Assessment & Plan: The patient has a history of ascending aortic dilation. Echocardiogram in September 2022 showed an ascending aorta of 4.0 cm. I will have him obtain a new echocardiogram to reevaluate for progression. CAD (coronary artery disease) 12/16/2022 Overview (08/26/2023): Last Assessment & Plan: The patient has a history of coronary artery disease status post successful PCI of the mid RCA with drug-eluting stent in February 2023. He has been maintained on aspirin and Brilinta. Of note, he was seen at the hospital in May 2023 where he was noted to have a hematoma over the right lower aspect of the leg. He was consulted by the surgery team who recommended no intervention at that time and conservative measures were continued. This has since almost resolved and he continues to wear compression stockings. He denies any further issues of bleeding. He continues on statin and beta-aarti as prescribed. He denies any exertional or anginal symptoms during cardiac rehab. At this point, we will continue current therapies. HTN (hypertension) 08/21/2022 Overview (08/26/2023): Last Assessment & Plan: Patient's blood pressure is acceptable today. He will continue his current antihypertensive medication regimen with nifedipine and metoprolol as prescribed. HLD (hyperlipidemia) 08/21/2022 Overview (08/26/2023): Last Assessment & Plan: The patient has a history of hyperlipidemia as well as a history of coronary artery disease. He continues on atorvastatin 40 mg orally daily. His last LDL cholesterol was 73. We will continue his current therapy. I have reviewed with the patient the importance of a heart healthy lifestyle which includes eating a low-fat low-salt diet, getting regular exercise, maintaining a healthy weight, not smoking, and following up with routine medical care. BRYANT (dyspnea on exertion) 08/21/2022 Overview (08/26/2023): Last Assessment & Plan: The patient has been experiencing exertional dyspnea. His symptoms started approximately April 2022. He denies any chest pain at rest or with exertion. The patient has multiple risk factors for CAD including: Hypertension and hyperlipidemia. Therefore, we need to consider the possibility that his exertional dyspnea may be his anginal equivalent. As such, we will proceed with an ischemic evaluation with a stress test. Given the patient's chronic low back pain due to spinal stenosis, he will be unlikely to be able to tolerate an exercise protocol. As such, we will refer the patient for a pharmacological nuclear stress test. We will also schedule the patient for an echocardiogram to rule out any underlying structural heart disease as a cause of his dyspnea. The patient is being evaluated for possible coronary artery disease. During today's visit, we reviewed the warning signs that should prompt an urgent medical evaluation. Specifically, we discussed that the patient should go to the hospital if he develops any chest discomfort at rest, worsening dyspnea, or worsening chest discomfort with exertion. Encounters Date Type Department Care Team Description 06/09/2024 Lab Requisition [facility] - Main Lab [address] [id number] Guy Capellan MD Elevated prostate specific antigen (PSA) 05/25/2024 Telephone [facility] [address] [place] [id number] Jorge Dong MD hold medication (Hold medication Procedure) from Last 3 Months Surgical History Surgery Date Site/Laterality Comments COLONOSCOPY PROCEDURE: HISTORICAL COLONOSCOPY OTHER SURGICAL HISTORY Bilateral PROCEDURE: HISTORY OTHER; COMMENT: Hip replacement Medical History Medical History Date Comments CKD (chronic kidney disease) stage 3, GFR 30-59 ml/min ([facility]) DX:CKD (chronic kidney dise ase) stage 3, GFR 30-59 ml/min ([facility]) PSA elevation 08/07/2021 DX:PSA elevation Spinal stenosis 08/07/2021 DX:Spinal stenos is Cellulitis DX:Cellulitis Social History Tobacco Use Types Packs/Day Years Used Date Smoking Tobacco: Never Smokeless Tobacco: Never Alcohol Use Standard Drinks/Week Comments Never 0 (1 standard drink = 0.6 oz pur e alcohol) Sex and Gender Information Value Date Recorded Sex Assigned at Not on file Legal Sex Male 9:03 PM EST Gender Identity Not on file Sexual Orientation Not on file Obstetrics History Last Filed Vital Signs Vital Sign Reading Time Taken Comments Blood Pressure 126/70 03/15/2024 7:35 AM EDT Sit ting L Arm Pulse 79 03/15/2024 7:35 AM EDT Temperature - - Respiratory Rate - - Oxygen Saturation - - Inhaled Oxygen Concentration - - Weight 90.3 kg (199 lb) 03/15/2024 7:35 AM EDT Height 174.6 cm (5' 8.75 ) 03/15/2024 7:35 AM ED T Body Mass Index 29.6 03/15/2024 7:35 AM EDT Plan of Treatment Upcoming Encounters Date Type Department Care Team (Late st Contact Info) Description 09/16/2024 8:00 AM EDT Ancillary Procedure [facility] [address] [place] [phone] 03/01/2025 8:00 AM EDT Office Visit Pulmonolgy - [place] [address] [place] [address] Marleni Monroy MD [address] [address] Health Maintenance Due Date Last Done Comments DTaP,Tdap,and Td Vaccines (1 - Tdap) 02/25/1960 RSV Immunization Patients 60+ Years Old (1 - 1-dose 75+ series) 02/25/2016 Pneumococcal Vaccine: 50+ Years (2 of 2 - PCV) 11/03/2018 11/03/2017 Zoster Vaccines (2 of 2) 10/02/2022 08/07/2022 Cholesterol Screening (Lipid Panel) 07/18/2023 Depression Screening 07/18/2023 Falls Risk Assessment 07/18/2023 Social Influencers of Health Screening 07/18/2023 Hypertension/CHF/CAD Annual BMP Blood Test 07/22/2023 Medicare Annual Wellness Visit 01/29/2024 01/28/2023 COVID-19 Vaccine ( season) 2024 10/15/2021, 02/22/2021, 08/30/2020, Additional history exists Influenza Vaccine (#1) 2024 03/09/2021 HIB Vaccines Aged Out No longer eligi ble based on patient's age to complete this topic HPV Vaccines Aged Out No longer eligi ble based on patient's age to complete this topic Hepatitis A Vaccines Aged Out No long er eligible based on patient's age to complete this topic Hepatitis B Vaccines Aged Out No long er eligible based on patient's age to complete this topic IPV Vaccines Aged Out No longer eligi ble based on patient's age to complete this topic MMR Vaccines Aged Out No longer eligi ble based on patient's age to complete this topic Meningococcal ACWY Vaccine Aged Out N o longer eligible based on patient's age to complete this topic Meningococcal B Vacine Aged Out No lo nger eligible based on patient's age to complete this topic RSV Immunization Patients Under 20 months Aged Out No longer eligible based on patient's age to complete this topic Varicella Vaccines Aged Out No longer eligible based on patient's age to complete this topic Procedures Procedure Name Priority Date/Time Associated Diagnosis Comments AP OUTSIDE CONSULT Routine 06/07/2024 Elevated prostate specific antigen (PSA) from Last 3 Months Results * Anatomic pathology outside consult (06/07/2024) Final Diagnosis A. Prostate, Left Middle Whiting (Core Biopsy): - Benign prostate tissue. B. Prostate, Left Lateral Whiting (Core Biopsy): - Benign prostate tissue. C. Prostate, Left Middle Middle (Core Biopsy): - Benign prostate tissue. D. Prostate, Left Lateral Middle (Core Biopsy): - Benign prostate tissue. E. Prostate, Left Middle Base (Core Biopsy): - Benign prostate tissue. F. Prostate, Left Lateral Base (Core Biopsy): - Benign prostate tissue. G. Prostate, Right Middle Whiting (Core Biopsy): - Benign prostate tissue. H. Prostate, Right Lateral Whiting (Core Biopsy): - Benign prostate tissue. I. 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 - Tumor continuously involves 60% of 1 of 1 tissue core. J. Prostate, Right Lateral Middle (Core Biopsy): - Prostatic acinar adenocarcinoma, grade group 2, Concho score (3+4=7). - Tumor continuously involves 10% of 1 of 1 tissue core. K. Prostate, Right Middle Base (Core Biopsy): - Prostatic acinar adenocarcinoma, grade group 3, Karla score (4+3=7). - Tumor continuously involves 25% of 1 of 1 tissue core. L. Prostate, Right Lateral Base (Core Biopsy): - Prostatic acinar adenocarcinoma, grade group 5, Karla score (4+5=9). - Tumor continuously involves 80% of 1 of 1 tissue core. M. Prostate, Right Sided MRI Lesion (Core Biopsy): - Prostatic acinar adenocarcinoma, grade group 3, Karla score (4+3=7). - Tumor continuously involves 70% of 1 of 1 tissue core. 06/14/2024 2:04 PM EST [facility] Clinical Information Elevated PSA R97.20 PSA: 16.4 (02/06/24) [id number] 06/14/2024 2:04 PM EST [facility] Gross Description A. Prostate, Left Middle Whiting Biopsy: Received, properly labeled, are two H and E stained slides and two unstained slides. B. Prostate, Left Lateral Whiting Biopsy: Received, properly labeled, are two H and E stained slides and two unstained slides. C. Prostate, Left Middle Middle Biopsy: Received, properly labeled, are two H and E stained slides and two unstained slides. D. Prostate, Left Lateral Middle Biopsy: Received, properly labeled, are two H and E stained slides and two unstained slides. E. Prostate, Left Middle Base Biopsy: Received, properly labeled, are two H and E stained slides and two unstained slides. F. Prostate, Left Lateral Base Biopsy: Received, properly labeled, are two H and E stained slides and two unstained slides. G. Prostate, Right Middle Whiting Biopsy: Received, properly labeled, are two H and E stained slides and two unstained slides. H. Prostate, Right Lateral Whiting Biopsy: Received, properly labeled, are two H and E stained slides and two unstained slides. I. Prostate, Right Middle Middle Biopsy: Received, properly labeled, are two H and E stained slides and two unstained slides. J. Prostate, Right Lateral Middle Biopsy: Received, properly labeled, are two H and E stained slides and two unstained slides. K. Prostate, Right Middle Base Biopsy: Received, properly labeled, are two H and E stained slides and two unstained slides. L. Prostate, Right Lateral Base Biopsy: Received, properly labeled, are two H and E stained slides and two unstained slides. M. Prostate, Right Sided MRI Lesion Biopsy: Received, properly labeled, are two H and E stained slides and two unstained slides. /al 06/14/2024 2:04 PM [facility] Disclaimer Unless otherwise specified, all tissue is 10% NB formalin fixed and paraffin embedded. Technical pathology services provided by [facility] at [address], [place] [address] (CLIA #[id number]/Royal Mireles MD, Home Health Outreach Coordinator) 06/14/2024 2:04 PM [facility] Tissue Prostatic structure / Unknown 06/07/2024 06/09/2024 1:17 PM EST Tissue specimen (specimen) Prostatic structure / Unknown 06/07/2024 06/09/2024 1:21 PM EST Tissue specimen (specimen) Prostatic structure / Unknown 06/07/2024 06/09/2024 1:21 PM EST Tissue specimen (specimen) Prostatic structure / Unknown 06/07/2024 06/09/2024 1:21 PM EST Tissue specimen (specimen) Prostatic structure / Unknown 06/07/2024 06/09/2024 1:21 PM EST Tissue specimen (specimen) Prostatic structure / Unknown 06/07/2024 06/09/2024 1:21 PM EST Tissue specimen (specimen) Prostatic structure / Unknown 06/07/2024 06/09/2024 1:21 PM EST Tissue specimen (specimen) Prostatic structure / Unknown 06/07/2024 06/09/2024 1:21 PM EST Tissue specimen (specimen) Prostatic structure / Unknown 06/07/2024 06/09/2024 1:21 PM EST Tissue specimen (specimen) Prostatic structure / Unknown 06/07/2024 06/09/2024 1:21 PM EST Tissue specimen (specimen) Prostatic structure / Unknown 06/07/2024 06/09/2024 1:21 PM EST Tissue specimen (specimen) Prostatic structure / Unknown 06/07/2024 06/09/2024 1:21 PM EST Tissue specimen (specimen) Prostatic structure / Unknown 06/07/2024 06/09/2024 1:21 PM EST us Guy Capellan MD LAB PATHOLOGY ORDERABLES Fi nal Result [facility] [address] [place] [address], from Last 3 Months Insurance MEDICARE [facility] Care Teams Ironer Relationship Specialty Start Date End Date Keith Diaz MD [address] PCP - General 07/31/22
--- OUTSIDE RECORDS SUMMARY | 2024-08-17 06:19 | XMS_ITS ---
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 Name Role Phone Keith Diaz MD Primary Care Provider Lj Berger Unavailable [phone] BlackAbelAfshan Unavailable [phone] Allergies No Known Allergies REASON FOR VISIT Ingrown Nail, Painful nail(s) aggrevated by shoes causing difficulty standing/walking Medications Medication SIG (Take, Route, Frequency, Duration) Notes Start Date End Date Status Atorvastatin Calcium 20 MG TAKE 1 TABLET BY MOUTH EVERY DAY Oral for 90 Not-Taking Keflex 500 MG 1 capsule Orally nora ry 12 hrs for 5 days 12/10/2016 Not-Taking NIFEdipine ER 60 MG TAKE 1 TABLET BY LISET TH EVERY DAY Oral for 90 Active Albuterol Active Ticagrelor 90 MG 1 tablet Orally Twic e a day Active Multivitamin - 1 tablet Orally Once a day Active Atorvastatin Calcium 40 MG 1 tablet Orally Once a day Active Aspirin 81 MG 1 tablet Orally Once a day Active Metoprolol Succinate 25 MG 1 capsule Orally Once a day Active Latanoprost 0.005 % 1 drop into affected eye in the evening Ophthalmic Once a day Active Social History Tobacco Use: Social History Observation Description Date Details (start date - stop date) Never Smoker NA - NA Tobacco Use/Smoking Question Answer Notes Are you a: nonsmoker Additional Findings: Tobacco Non-User Current no n-smoker Alcohol Screen Question Answer Notes Did you have a drink containing alcohol in the p ast year? No Points 0 Interpretation Negative Tobacco use other than smoking: Question Answer Notes Are you an other tobacco user? No Vital Signs Height 5 ft 9 in in 08/26/2023 Weight 195 lbs 08/26/2023 BMI 28.79 kg/m2 08/26/2023 Procedures Procedure Date Ordered Date Performed Result Body Sit e 88534-Xmdjdusc Plate 08/26/2023 N/A Encounters Encounter Location Date Provider Diagnosis [facility] [address] [facility] [place] [address] 08/26/2023 Afshan Black Ingrown nail L60.0 ; Tinea unguium B35.1 ; Pain in right toe(s) M79.674 and Pain in left toe(s) M79.675 Assessments Encounter Date Diagnosis (ICD Code) Assessment Notes Treatment Notes Treatment Clinical Notes Section Notes 08/26/2023 Ingrown nail (ICD-10 - L60.0) 08/26/2023 Tinea unguium (ICD-10 - B35.1) Patient Educated with: FUNGUS NAIL INFECTIONS.pdf (FUNGUS NAIL INFECTIONS.pdf ) 08/26/2023 Pain in right toe(s) (ICD-10 - M79.674) 08/26/2023 Pain in left toe(s) (ICD-10 - M79.675) Plan Of Treatment Treatment Notes Assessment Notes Tinea unguium Patient Educated wit h: FUNGUS NAIL INFECTIONS.pdf (FUNGUS NAIL INFECTIONS.pdf) Pending Test Test Name Order Date 51085-Axuszlke Plate 08/26/2023 Next Appt Details Follow Up: 2 Weeks, Reason: Procedure Notes * Category Sub-Category Detail Notes Nail Avulsion Procedure A fine sterile e levator was placed between the eponychium, nail fold, and nail plate to separate the structures. A sterile nail splitter, and/or sterile 316 blade, was then used to longitudinally section the nail along its entire length through the eponychium to the area under the nail fold. The offending portion of nail was from the nail bed with a rolling action and then removed with a hemostat. No underlying bone was identified. There was minimal bleeding as hemostasis was achieved through the temporary use of either a digital tourniquet or the aforementioned local with epinephrine. A bacitracin sterile dressing was applied. Local wound aftercare instructions were discussed and dispensed. The patient was informed of both conservative and future surgical procedures to prevent recurrence. Tylenol or Motrin was recommended for pain or discomfort (80281) , Pt DEFERS matricectomy Anesthesia 3cc of 1 percent Lid ocaine Plain local anesthesic utilizing aseptic technique Location Medial nail border , T5 Progress Notes * Mauro GRACE ADOB: 1 (83 yo M)Acc No.[id number]:08/26/2023 Progress Notes Patient:?Mauro Grace Provider:?Afshan Michael DPM :1940???Age:83 Y???Sex:Male Golden e:08/26/2023 Address: [address], [address], [facility] Pcp:Keith Diaz MD Subjective: * Chief Complaints: * ???Ingrown NailPainful nail( s) aggrevated by shoes causing difficulty standing/walking * HPI: ???Painful Nails:?Pt States Last PCP Visit:?Date:?08/04/2023 * ROS:?General/Constitutional:?Nausea?denies.?Vomiting?denies.?Hunger Thirst?denies.?Loss appetite?denies.?Chills?denies.?Fatigue?denies.?Fever?denies.?Night Sweats?denies.?Unexplained weight loss?denies.?Unexplained weight gain?denies.?HEENTM:?Dentures?denies.?Dizziness?denies.?Glasses/contacts?admits.?Retinopathy?de nies.?Blurred/double vision?denies.?TMJ?denies.?Discharge/drainage?denies.?Implants?denies.?Sore throat?denies.?Dental implants?denies.?Hard of hearing ?denies.?Difficulty chewing/swallowing/speaking?denies.?Nose bleeds?denies.?Sore mouth?denies.?Respiratory:?On Oxygen?denies.?Pneumonia/pleurisy?denies.?Bronchitis?denies.?Emphysema?denies.?C oughing?denies.?Cough blood?denies.?Shortness of breath?admits.?Wheezing?denies.?Cardiovascular:?Pacemaker?denies.?MVP?denies.?WPW?denies.?CHF?denies.?Heart attack?denies.?Septal defect?denies.?Rapid beat?denies.?Chest pain ?denies.?Atrial Fib.?denies.?Murmur/Palpitations?denies.?Gastrointestinal:?Hemorrhoids?denies.?Stomach/Abdominal pain?denies.?Dark blood stool?denies.?Irritable bowel ?denies.?Constipation?denies.?Diarrhea?denies.?Hematology:?Swelling?denies.?Clots?denies.?Varicose Veins?denies.?Bruising?denies.?Bleeding problem?denies.?Genitourinary:?Blood urine?denies.?Frequent/Painfu/urination/bladder control?denies.?Kidney stones?denies.?Infection (UTI)?denies.?Nephropathy?denies.?sex trans dis (STD)?denies.?Prostate?denies.?Musculoskeletal:?Hammertoes?denies.?Bunions?denies.?Back Pain?denies.?Muscle Cramps/ Resting?denies.?Muscle cramps / walking?denies.?Generalized aches and pains?denies.?Weakness?denies.?Integ.:?Hardwick?denies.?Scars?denies.?Corns/calluses?denies.?Ingrown nails?admits.?Painful nails?admits.?Open Sores?denies.?Rashes?denies.?Neurologic:?Difficulty sleeping?denies.?Brain disorder?denies.?Numbness?denies.?Balance trouble?denies.?Confusion?denies.?Fainting/blackouts?denies.?Tingling?denies.?Tr emors?denies.? * Medical History:? 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 * Social History:?Tobacco Use:?Tobacco Use/Smoking?Are you a:?nonsmoker ?Additional Findings: Tobacco Non-User?Current non-smoker ?Tobacco use other than smoking?Are you an other tobacco user??No ???Drugs/Alcohol:?Drugs?Have you used drugs other than those for medical reasons in the past 12 months??No ?Alcohol Screen?Did you have a drink containing alcohol in the past year??No ?Points?0 ?Interpretation?Negative ???Miscellaneous:?Caffeine: yes, frequency: , 1-2 cups per day. ?Children: 1. ?Exercise: work, fishing. ?Marital status: . 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 * Medications:?TakingMultivita min - Tablet 1 tablet Orally Once a dayMetoprolol Succinate 25 MG Capsule ER 24 Hour Sprinkle 1 capsule Orally Once a dayLatanoprost 0.005 % Solution 1 drop into affected eye in the evening Ophthalmic Once a dayAtorvastatin Calcium 40 MG Tablet 1 tablet Orally Once a dayAspirin 81 MG Tablet Chewable 1 tablet Orally Once a dayAlbuterol Ticagrelor 90 MG Tablet 1 tablet Orally Twice a dayNIFEdipine ER 60 MG Tablet Extended Release 24 Hour TAKE 1 TABLET BY MOUTH EVERY DAY Oral Taking Multivitamin - Tablet 1 tablet Orally Once a dayTaking Metoprolol Succinate 25 MG Capsule ER 24 Hour Sprinkle 1 capsule Orally Once a dayTaking Latanoprost 0.005 % Solution 1 drop into affected eye in the evening Ophthalmic Once a dayTaking Atorvastatin Calcium 40 MG Tablet 1 tablet Orally Once a dayTaking Aspirin 81 MG Tablet Chewable 1 tablet Orally Once a dayTaking Albuterol Taking Ticagrelor 90 MG Tablet 1 tablet Orally Twice a dayTaking NIFEdipine ER 60 MG Tablet Extended Release 24 Hour TAKE 1 TABLET BY MOUTH EVERY DAY Oral Not-Taking/PRNAtorvastatin Calcium 20 MG Tablet TAKE 1 TABLET BY MOUTH EVERY DAY Oral Keflex 500 MG Capsule 1 capsule Orally every 12 hrsMedication List reviewed and reconciled with the patientNot-Taking/PRN Atorvastatin Calcium 20 MG Tablet TAKE 1 TABLET BY MOUTH EVERY DAY Oral Not-Taking/PRN Keflex 500 MG Capsule 1 capsule Orally every 12 hrsMedication List reviewed and reconciled with the patient * Allergies:?N.K.D.A.yes[Aller gies Verified] Objective: * Vitals:?Ht: 5 ft 9 in, Wt: 1 95, BMI: 28.79, Shoe size: 10-10.5, Ht-cm: 175.26 cm, Wt-k.45 kg. * Examination: ???General Examination: ?GENERAL APPEARANCE:?Reveals a pleasant, alert, well nourished, well- developed, well hydrated individual, who demonstrates proper attention to hygiene/body habitus, and is in no acute distress, Pt serves as own historian for office visit today.?ORIENTED:?person, place, and time.?Neurological: ?SENSORY:?Neurological exam reveals intact sensorium, pain sensation normal, vibration sensation intact, pinprick sensation is normal in the lower extremities, Pt denies, anesthesia, burning, paresthesia, tingling, B/L.?Vascular: ?DP PULSES:?/4, B/L.?PT PULSES:?4, B/L.?CAPILLARY FILL TIME:?immediate, all digits, B/L.?SKIN TEMPERTURE GRADIENT OF THE LOWER EXTERMITIES:?normal, warm to cool, proximal to distal, B/L, B/L.?HAIR GROWTH/TEXTURE/ELASTICITY/TURGOR:?normal, B/L.?Nails: ?NAILS are:?Elongated, overgrown, dystrophic, lytic, greater than 3mm thick, discolored and friable with crumbly malodorous subungual debris, with pain on palpation , T1 , TA , T6.?Ingrown Nail: ?INSPECTION:?Reveals nail incurvation, pain on palpation, groove hypertrophy , groove ischemia , Medial nail border , T5.? Assessment: * Assessment: 1.?Tinea unguium - B35.1?2.? Ingrown nail - L60.0?3.?Pain in right toe(s) - M79.674?4.?Pain in left toe(s) - M79.675? Plan: * Treatment: 2.?Ingrown nail?Procedure: 91065-Ujvbvzlj Plate * Procedures:?Nail Avulsion:?Location?Medial nail border , T5.?Anesthesia?3cc of 1 percent Lidocaine Plain local anesthesic utilizing aseptic technique.?Procedure?A fine sterile elevator was placed between the eponychium, nail fold, and nail plate to separate the structures. A sterile nail splitter, and/or sterile 316 blade, was then used to longitudinally section the nail along its entire length through the eponychium to the area under the nail fold. The offending portion of nail was from the nail bed with a rolling action and then removed with a hemostat. No underlying bone was identified. There was minimal bleeding as hemostasis was achieved through the temporary use of either a digital tourniquet or the aforementioned local with epinephrine. A bacitracin sterile dressing was applied. Local wound aftercare instructions were discussed and dispensed. The patient was informed of both conservative and future surgical procedures to prevent recurrence. Tylenol or Motrin was recommended for pain or discomfort (32074) , Pt DEFERS matricectomy.? * Procedure Codes:?80480 Avuls ion Plate, Modifiers: T5 * Preventive Medicine:? ??Counseling:?Discussion:?-03: Office or other outpatient visit for the evaluation and management of a new patient, which required a medically appropriate history and/or examination and LOW level of DECISION MAKING for: 1 STABLE ACUTE UNCOMPLICATED PROBLEM, 2 OR MORE MINOR PROBLEMS, OR 1 STABLE CHRONIC PROBLEM, THAT POSE(S) A LOW RISK FOR MORBIDITY/MORTALITY. The visit on the day of the encounter encompassed interpreting the data and educating the patient as to the nature of their condition, treatment options available according to their individual PMH, meds, allergies, and overall health/living conditions, as well as any potential risks or complications that may occur from a failure to adhere to, and participate in, the recommended course of therapy. The discussion included a complete verbal, and/or written explanation of the examination results, any x-rays taken, the proposed diagnosis, and outline of the treatment plan. A schedule for future care needs was also explained. The patient verbalized an understanding of the instructions at this time and agreed to be an active participant in their treatment. If the patient should think of any questions or concerns after the visit, I have encouraged the patient to call the office.?Fungal Nail Counseling:?The patient was counseled on the diagnosis, potential etiologies (including, but not limited to, environmental factors, genetic, immune deficiency), and the multiple treatment options for Onychomycosis. We discussed the risks and benefits of each option from performing no treatment, to ultraviolet light shoe treatment, to laser nail treatment, to applying topical antifungals, to taking oral antifungal medication, to surgical removal of the involved nail(s) with or without performing a matricectomy, or any combination thereof. We discussed the advantages and disadvantages of each of possible treatment and importance for adherence to all the recommended therapies for optimum success. This includes the necessity for weekly emery board self nail home debridements, and control the nail and skin environment as much as possible by only using a fresh, dry pair of shoes/socks each day, as well as keeping the skin as dry as possible through the use of sprays/powders if necessary. The patient was instructed to discard the emery board after use to prevent reinfection of the involved nail(s). We discussed the mycological and visual clinical effectiveness of topical vs oral antifungal treatments as well as each ones potential side effects and/or any patient- specific medication interactions. We discussed the reasons behind the important requirement of regular liver function testing with oral antifungal therapy for safety. Patient questions regarding use, dosage, successful outcomes, blood tests, and possible pharmaceutical interactions were reviewed and the patient verbalized that all answers were clearly understood, The Pt prefers topical treatment, Nail debridement performed extensively to reduce/remove overall nail length, girth, thickness, subungual debris, and necrotic tissue, by manual and electrical means through the use of a nail nipper and/or dremel, to more viable healthy nail plate or bed tissue. Silver nitrate used for any petechial bleeding as necessary.? * Follow Up:?2 Weeks * Images: * Sign off status: Completed true * Provider:?Afshan Michael DPM Date:?2023 Generated for Oliver baker/Chan/Rodrigue on:?08/17/2024 06:19 AM EST History and Physical Notes * HPI (History of Present Illness) Category Sub-Category Detail Notes Category Not es Painful Nails Pt States Last PCP Visit: Date:: 08/04/2023 Examination Category Sub-Category Detail Notes Category Not es Ingrown Nail INSPECTION: Reveals nail inc urvation, pain on palpation, groove hypertrophy , groove ischemia , Medial nail border , T5 Neurological SENSORY: Neurological exa m reveals intact sensorium, pain sensation normal, vibration sensation intact, pinprick sensation is normal in the lower extremities, Pt denies, anesthesia, burning, paresthesia, tingling, B/L General Examination GENERAL APPEARANCE: Reveals a pleasant, alert, well nourished, well-developed, well hydrated individual, who demonstrates proper attention to hygiene/body habitus, and is in no acute distress, Pt serves as own historian for office visit today ORIENTED: person, place, and t carly Vascular DP PULSES (B): 1/4, B/L PT PULSES (B): 1/4, B/L CAPILLARY FILL TIME: immediate, all digi ts, B/L TEMPERTURE GRADIENT (C): normal, warm to cool, proximal to distal, B/L, B/L TROPHIC CONDITION-TEXTURE/ELASTICITY/TURGOR/HAIR GROWTH (B): normal, B/L Nails NAILS are: Elongated, overg rown, dystrophic, lytic, greater than 3mm thick, discolored and friable with crumbly malodorous subungual debris, with pain on palpation , T1 , TA , T6
--- OUTSIDE RECORDS SUMMARY | 2024-08-17 06:20 | XMS_ITS | Encounter Summary ---
Author Organization [facility] Address [address] [place] [address] Care Team Providers Care Signing Agent Name Role Phone Keith Diaz MD Primary Care Provider [phone] Encounter Details Date Type Department Care Team (Late st Contact Info) Description 06/09/2024 Lab Requisition [facility] - Main Lab [address] [facility] [place] [address] Guy Capellan MD [address] [facility] [address] [place] [address] Elevated prostate specific antigen (PSA) Social History Tobacco Use Types Packs/Day Years Used Date Smoking Tobacco: Never Smokeless Tobacco: Never Alcohol Use Standard Drinks/Week Comments Never 0 (1 standard drink = 0.6 oz pur e alcohol) Sex and Gender Information Value Date Recorded Sex Assigned at Not on file Legal Sex Male 9:03 PM EST Gender Identity Not on file Sexual Orientation Not on file documented as of this encounter Plan of Treatment Upcoming Encounters Date Type Department Care Team (Late Contact Info) Description 09/16/2024 8:00 AM EDT Ancillary Procedure [facility] [address] [facility] [address] [place] [phone] 03/01/2025 8:00 AM EDT Office Visit Pulmonolgy - [place] [address] [facility] [address] [place] [address] Marleni Monroy MD 175 [facility] 200 [place], [place] [id number] documented as of this encounter Procedures Procedure Name Priority Date/Time Associated Diagnosis Comments AP OUTSIDE CONSULT Routine 06/07/2024 Elevated prostate specific antigen (PSA) documented in this encounter Results * Anatomic pathology outside consult (06/07/2024) Final Diagnosis A. Prostate, Left Middle [place] (Core Biopsy): - Benign prostate tissue. B. Prostate, Left Lateral [place] (Core Biopsy): - Benign prostate tissue. C. Prostate, Left Middle Middle (Core Biopsy): - Benign prostate tissue. D. Prostate, Left Lateral Middle (Core Biopsy): - Benign prostate tissue. E. Prostate, Left Middle Base (Core Biopsy): - Benign prostate tissue. F. Prostate, Left Lateral Base (Core Biopsy): - Benign prostate tissue. G. Prostate, Right Middle [place] (Core Biopsy): - Benign prostate tissue. H. Prostate, Right Lateral [place] (Core Biopsy): - Benign prostate tissue. I. 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 - Tumor continuously involves 60% of 1 of 1 tissue core. J. Prostate, Right Lateral Middle (Core Biopsy): - Prostatic acinar adenocarcinoma, grade group 2, Karla score (3+4=7). - Tumor continuously involves 10% of 1 of 1 tissue core. K. Prostate, Right Middle Base (Core Biopsy): - Prostatic acinar adenocarcinoma, grade group 3, Karla score (4+3=7). - Tumor continuously involves 25% of 1 of 1 tissue core. L. Prostate, Right Lateral Base (Core Biopsy): - Prostatic acinar adenocarcinoma, grade group 5, Wendell score (4+5=9). - Tumor continuously involves 80% of 1 of 1 tissue core. M. Prostate, Right Sided MRI Lesion (Core Biopsy): - Prostatic acinar adenocarcinoma, grade group 3, Wendell score (4+3=7). - Tumor continuously involves 70% of 1 of 1 tissue core. 06/14/2024 2:04 PM EST [facility] Clinical Information Elevated PSA R97.20 PSA: 16.4 (02/06/24) [id number] 06/14/2024 2:04 PM EST [facility] Gross Description A. Prostate, Left Middle [place]ham Biopsy: Received, properly labeled, are two H and E stained slides and two unstained slides. B. Prostate, Left Lateral [place] Biopsy: Received, properly labeled, are two H [...] two unstained slides. G. Prostate, Right Middle [place] Biopsy: Received, properly labeled, are two H and E stained slides and two unstained slides. H. Prostate, Right Lateral [place] Biopsy: Received, properly labeled, are two H [...] two unstained slides. /al 06/14/2024 2:04 PM [facility] Disclaimer Unless otherwise specified, all tissue is 10% NB formalin fixed and paraffin embedded. Technical pathology services provided by [facility] at [address] [place] [address] [address], [place] [address] (CLIA #[id number]/Royal Mireles MD, Process Analyst) 06/14/2024 2:04 PM [facility] Tissue Prostatic structure / Unknown 06/07/2024 [...] MD LAB PATHOLOGY ORDERABLES Fi nal Result Performing Organization Address City/State/[facility] Co de Phone Number [facility] [address] [place] [address], documented in this encounter Visit Diagnoses Diagnosis Elevated prostate specific antigen (PSA) documented in this encounter Care Teams Signing Agent Relationship Specialty Start Date End Date Keith Diaz MD [facility]ch[facility] Audelia [address] PCP - General 07/31/22 documented as of this encounter
--- OUTSIDE RECORDS SUMMARY | 2024-08-17 06:20 | XMS_ITS ---
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 Generated for Printi olivia/Chan/eTransmitting on:?08/17/2024 06:19 AM EST
--- OUTSIDE RECORDS SUMMARY | 2024-08-17 06:20 | XMS_ITS | Patient Health Record ---
Author Organization [facility] Address [address] [facility] [place] [address] Care Team Providers Care Loom Starter Name Role Phone Keith Diaz MD Primary Care Provider Lj Berger Unavailable [phone] Afshan Michael Unavailable [phone] Allergies No Known Allergies Reason For Referral No Information Medications Medication SIG (Take, Route, Frequency, Duration) Notes Start Date End Date Status Latanoprost 0.005 % 1 drop into affected eye in the evening Ophthalmic Once a day Active Atorvastatin Calcium 40 MG 1 tablet Orally Once a day Active Multivitamin - 1 tablet Orally Once a day Active Metoprolol Succinate 25 MG 1 capsule Orally Once a day Active Ticagrelor 90 MG 1 tablet Orally Twic e a day Active NIFEdipine ER 60 MG TAKE 1 TABLET BY LISET TH EVERY DAY Oral for 90 Active Aspirin 81 MG 1 tablet Orally Once a day Active Albuterol Active Keflex 500 MG 1 capsule Orally nora ry 12 hrs for 5 days 12/10/2016 Not-Taking Atorvastatin Calcium 20 MG TAKE 1 TABLET BY MOUTH EVERY DAY Oral for 90 Not-Taking Social History Tobacco Use: Social History Observation [...] Are you an other tobacco user? No Problems Problem Type SNOMED Code ICD Code Onset Dates Problem Status W/U Status Risk Notes Problem Ulcer of toe of right foot (disorder) (999017509 [id number]) Skin ulcer of toe of right foot, limited to breakdown of skin (L97.511) Active confirmed Nonapplicable Vital Signs Height 5 ft 9 in in 09/09/2023 Weight 195 lbs 09/09/2023 BMI 28.79 kg/m2 09/09/2023 Procedures Procedure Date Ordered Date Performed Result Body Sit e 06040-Xzsbypsr Plate 08/26/2023 N/A 39804- Debride <25 sq cm 09/09/2023 N/A Encounters Encounter Location Date Provider [facility] [address] 08/26/2023 Afshan Black Ingrown nail L60.0 ; Tinea unguium B35.1 ; Pain in right toe(s) M79.674 and Pain in left toe(s) M79.[address] [address] 09/09/2023 Afshan Black Skin ulcer of toe of right foot, limited to breakdown of skin L97.511 [facility] [address] [place] [address] 08/20/2023 Lj Mehta Assessments Encounter Date Diagnosis (ICD Code) Assessment Notes Treatment Notes Treatment Clinical Notes Section Notes 08/26/2023 Tinea unguium (ICD-10 - B35.1) Patient Educated with: FUNGUS NAIL INFECTIONS.pdf (FUNGUS NAIL INFECTIONS.pdf ) 08/26/2023 Ingrown nail (ICD-10 - L60.0) 09/09/2023 Skin ulcer of toe of right foot, limited to breakdown of skin (ICD-10 - L97.511) Nonapplicable Patient Educated with: WOUND CARE INSTRUCTIONS.p df (WOUND CARE INSTRUCTIONS.p df) 08/26/2023 Pain in right toe(s) (ICD-10 - M79.674) 08/26/2023 Pain in left toe(s) (ICD-10 - M79.675) 09/09/2023 Other Plan Of Treatment Pending Test Test Name Order Date 62695-Almkqbrs Plate 12/10/2016 74949-Ykiuxzos Plate 08/26/2023 66481- Debride <25 sq cm 09/09/2023 34738- Debride <25 sq cm 12/26/2016 33837-RRJHEZPU OF HEMATOMA/FLUID 021 Insurance Providers Payer Name Payer Address Payer Phone Subscriber Number Group Number Insured Name Patient Relationship to Insured Coverage Start Date Coverage End Date Medicare National Govt Svcs [employer] [address] [place] [address] [id number] Mauro Graec Self - patient is the insured [employer] [address] [place] [address] [id number] Mauro Grace Self - patient is the insured Medical (General) History Medical History History ICD Code Cataracts Hypertension Measles Chicken pox Joint implants/screws Heart disease Spina bifida Vascular grafts Surgical History Surgery Date(Month/Year) cataract surgery detached retina hip replacement stent 02/2023 Hospitalization History Reason Date(Month/Year) brain bleed 10/2022
--- OUTSIDE RECORDS SUMMARY | 2024-08-17 06:20 | XMS_ITS ---
Author Organization [facility] Address [address] [facility] [place] [address] Care Team Providers Care Debeaker Name Role Phone Keith Diaz MD Primary Care Provider Lj Berger Unavailable [phone] BlackAbelAfshan Unavailable [phone] Allergies No Known Allergies REASON FOR VISIT Open sore - Toe Medications Medication SIG (Take, Route, Frequency, Duration) Notes Start Date End Date Status Ticagrelor 90 MG 1 tablet Orally Twic e a day Active NIFEdipine ER 60 MG TAKE 1 TABLET BY LISET TH EVERY DAY Oral for 90 Active Albuterol Active Keflex 500 MG 1 capsule Orally nora ry 12 hrs for 5 days 12/10/2016 Not-Taking Atorvastatin Calcium 20 MG TAKE 1 TABLET BY MOUTH EVERY DAY Oral for 90 Not-Taking Latanoprost 0.005 % 1 drop into affected eye in the evening Ophthalmic Once a day Active Atorvastatin Calcium 40 MG 1 tablet Orally Once a day Active Multivitamin - 1 tablet Orally Once a day Active Metoprolol Succinate 25 MG 1 capsule Orally Once a day Active Aspirin 81 MG 1 tablet Orally Once a day Active Social History Tobacco [...] Ulcer of toe of right foot (disorder) ([id number]) Skin ulcer of toe of right foot, limited to breakdown of skin (L97.511) Active confirmed Nonapplicable Vital Signs Height 5 ft 9 in in 09/09/2023 Weight 195 lbs 09/09/2023 BMI 28.79 kg/m2 09/09/2023 Procedures Procedure Date Ordered Date Performed Result Body Sit e 47822- Debride <25 sq cm 09/09/2023 N/A Encounters Encounter Location Date Provider [facility] [address] 09/09/2023 Afshan Michael Skin ulcer of toe of right foot, limited to breakdown of skin L97.511 Assessments Encounter Date Diagnosis (ICD Code) Assessment Notes Treatment Notes Treatment Clinical Notes Section Notes 09/09/2023 Skin ulcer of toe of right foot, limited to breakdown of skin (ICD-10 - L97.511) Nonapplicable Patient Educated with: WOUND CARE INSTRUCTIONS.p df (WOUND CARE INSTRUCTIONS.p df) 09/09/2023 Other Plan Of Treatment Treatment Notes Assessment Notes Skin ulcer of toe of right f oot, limited to breakdown of skin Patient Educated with: WOUND CARE INSTRUCTIONS.pdf (WOUND CARE INSTRUCTIONS.pdf) Pending Test Test Name Order Date 31061- Debride <25 sq cm 09/09/2023 Next Appt Details Follow Up: 2 Weeks, Reason: Procedure Notes * Category Sub-Category Detail Notes Debride skin< 25 sq cm Open wound Physician of record performed open wound selective debridement of first 25 sq cm or less, of devitilized necrotic/nonviable soft tissue, fibrin, and exudate extending from the epidermis through the dermis, utilizing sharp dissection with sterile 15 blade, and/or tissue nippers. Sterile antibiotic dressing applied, ANESTHESIA- was accomplished TOPICALLY with Lidocaine Hydrochloride Jelly 2 percent. Hemostasis was achieved through direct pressure. Post debridement measurements: 6 mm x 3mm x 1-2mm. Character of the wound post debridement is stable (64522) Progress Notes * Mauro GRACE ADOB: (83 yo M)Acc No.[id number]:09/09/2023 Progress Notes Patient:?Mauro Grace Provider:?Afshan Michael DPM :1940???Age:83 Y???Sex:Male Golden e:09/09/2023 Address:[address], [place], [place] Pcp:Keith Diaz MD Subjective: * Chief Complaints: * ???Open sore - Toe * HPI: ???Skin problems:?Treatments:?soaks , Topical abx.? * Medical History:? * Surgical History:?cataract s [...] ?Exercise: work, fishing. ?Marital status: . 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 * Medications:?TakingMultivita min - Tablet 1 tablet [...] 5 ft 9 in, Wt: 1 95, BMI:28.79, Shoe size: 10-10.5. * Examination: ???Dermatologic: ?ULCER:? LOCATION, T5, Medial, SIZE, 8mm X 4mm X 2mm, BASE, granular, RIM, hyperkeratotic, UNDERMINING, absent, TRACKING, Full thickness breakdown of skin, DRAINAGE, serosanguineous, mild, NECROTIC TISSUE, loosely-adherent, yellow slough, MALODOR, absent, CALOR, absent, ERYTHEMA, absent, PAIN ON PALPATION, present.? Assessment: * Assessment: 1.?Skin ulcer of toe of righ t foot, limited to breakdown of skin - L97.511, Response to treatment,, Nonapplicable? Plan: * Treatment: * Procedures:?Debride skin< 25 sq cm:?Open wound?Physician of record performed open wound selective debridement of first 25 sq cm or less, of devitilized necrotic/nonviable soft tissue, fibrin, and exudate extending from the epidermis through the dermis, utilizing sharp dissection with sterile 15 blade, and/or tissue nippers. Sterile antibiotic dressing applied, ANESTHESIA- was accomplished TOPICALLY with Lidocaine Hydrochloride Jelly 2 percent. Hemostasis was achieved through direct pressure. Post debridement measurements: 6 mm x 3mm x 1-2mm. Character of the wound post debridement is stable (68678).? * Procedure Codes:?06498 ACTIV E WOUND CARE/20 CM OR <, Modifiers: T5 * Preventive Medicine:? ??Counseling:?Ulcer:?A detailed plan of care was reviewed with the patient. We emphasized the fact that the patient takes on an active participating role in the treatment process and emphasized to them that they are an included, valued, and important member of the wound healing team in order to reach an expedient successful outcome. The patient agreed to follow their medically recommended diet while increasing their protein intake if safely able to do so, maintain proper bodily hydaration, abide by weight-bearing restrictions at all times, quit all current smoking habits if any, and diligently follow any/all dressing change instructions. It was clearly made known to the patient that if they fail to do their part, they will likely extend their course of treatment as well as possibly increase their risk of adverse events including amputation. The patient was instructed on importance of proper wound care consisting of pressure reduction, and proper maintainance of a moist wound environment. The patient is to cleanse the wound with warm soapy water/peroxide/saline, or betadine BID based on product availability. The patient is to apply ( Neosporin, Polysporin, or Triple, ____ ) Antibiotic to the wound and cover with a DSD as directed. The patient was instructed to change dressings according to orders, or PRN saturation, leaks. The patient was instructed to monitor and report any signs or symptoms of infection or any untoward reactions. Precautions Taken: Offloading/Pressure reduction via rest/ limited activity to essential to daily life only, cane/ crutches/ walker/ knee scooter/ wheel chair, shoe modification, accommodative padding, sharp debridement, and take/apply medication as directed. THE GOALS of wound debridement to remove devitilized tissue, decrease risk for infection, promote wound healing and prevent further complication were discussed/reviewed. Debridement frequency as indicated, Debridement frequency as indicated, Every 1-2 weeks until healed.? * Follow Up:?2 Weeks * Images: * Sign off status: Completed true * Provider:?Afshan Michael DPM Date:?2023 Generated for Printi olivia/Chan/eTransmitting on:?08/17/2024 06:19 AM EST History and Physical Notes * HPI (History of Present Illness) Category Sub-Category Detail Notes Category Not es Skin problems Treatments: soaks , Topical abx Examination Category Sub-Category Detail Notes Category Not es Dermatologic ULCER: LOCATION, T5, Me dial, SIZE, 8mm X 4mm X 2mm, BASE, granular, RIM, hyperkeratotic, UNDERMINING, absent, TRACKING, Full thickness breakdown of skin, DRAINAGE, serosanguineous, mild, NECROTIC TISSUE, loosely-adherent, yellow slough, MALODOR, absent, CALOR, absent, ERYTHEMA, absent, PAIN ON PALPATION, present
== END 2024-08-17 06:17 | disposition home or self-care (01) ==
LOC: CF 06:16
PROVIDERS: Visit Provider Anesthesiology
DX: M47.816 Spondylosis without myelopathy or radiculopathy, lumbar region (principal); M48.00 Spinal stenosis, site unspecified
CPT/HCPCS: 64493; 64494; J2003; J2795; J3301; Q9967

== ENCOUNTER 2024-08-17 07:31 | Outpatient (AMB) | payer MEDICARE, SELFPAY ==
--- OUTSIDE RECORDS SUMMARY | 2024-08-17 07:33 | XMS_ITS | Clinical Summary ---
Author Organization [facility] [address] [facility] Address [address] [place] [address] Phone Care Team Providers Care Batcher Operator Name Role Phone Keith Diaz MD Primary Care Provider [phone] Allergies No known active allergies Medications aspirin 81 mg EC tablet Take 1 tablet (81 mg total) by mouth 1 (one) time each day. 3 Active ticagrelor (BRILINTA) 90 mg tablet Take 1 tablet (90 mg total) by mouth 2 (two) times a day. Active latanoprost (XALATAN) 0.005 % ophthalmic solution Administer 1 drop into both eyes at bedtime. Active qx-ter-MA-vit J-mksxxb-xhsisdl (PreserVision AREDS 2 Plus MV) 200 mcg-15 [...] Department Care Team Description 06/09/[address] [facility] - Main Lab [address] [facility] [place] [id number] Guy Capellan MD Elevated prostate specific antigen (PSA) 05/25/2024 Telephone [facility] - [facility] [address] [place] [phone] Jorge Dong MD hold medication (Hold medication Procedure) from Last 3 Months Surgical History Surgery Date Site/Laterality Comments COLONOSCOPY PROCEDURE: HISTORICAL COLONOSCOPY OTHER SURGICAL HISTORY Bilateral PROCEDURE: HISTORY OTHER; COMMENT: Hip replacement Medical History Medical History Date Comments CKD (chronic kidney disease) stage 3, GFR 30-59 ml/min ([facility]) DX:CKD (chronic kidney dise ase) stage 3, GFR 30-59 ml/min ([facility]) PSA elevation 08/07/2021 DX:PSA elevation Spinal stenosis [...] Description 09/16/2024 8:00 AM EDT Ancillary Procedure [facility] [address] [place] [address] 03/01/2025 8:00 AM EDT Office Visit Pulmonolgy - [place] [address] [facility] [address] [place] [address] Marleni Monroy MD [address] [address] Health Maintenance Due Date Last Done Comments [...] (06/07/2024) Final Diagnosis A. Prostate, Left Middle Dickey (Core Biopsy): - Benign prostate tissue. B. Prostate, Left Lateral Dickey (Core Biopsy): - Benign prostate tissue. C. Prostate, Left Middle Middle (Core Biopsy): - Benign prostate tissue. D. Prostate, Left Lateral Middle (Core Biopsy): - Benign prostate tissue. E. Prostate, Left Middle Base (Core Biopsy): - Benign prostate tissue. F. Prostate, Left Lateral Base (Core Biopsy): - Benign prostate tissue. G. Prostate, Right Middle Dickey (Core Biopsy): - Benign prostate tissue. H. Prostate, Right Lateral Dickey (Core Biopsy): - Benign prostate tissue. I. 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 - Tumor continuously involves 60% of 1 of 1 tissue core. J. Prostate, Right Lateral Middle (Core Biopsy): - Prostatic acinar adenocarcinoma, grade group 2, Rhineland score (3+4=7). - Tumor continuously involves 10% [...] tissue core. 06/14/2024 2:04 PM EST [facility] Clinical Information Elevated PSA R97.20 PSA: 16.4 (02/06/24) [id number] 06/14/2024 2:[address] [facility] Gross Description A. Prostate, Left Middle Dickey Biopsy: Received, properly labeled, are two H and E stained slides and two unstained slides. B. Prostate, Left Lateral Dickey Biopsy: Received, properly labeled, are two H [...] two unstained slides. G. Prostate, Right Middle Dickey Biopsy: Received, properly labeled, are two H and E stained slides and two unstained slides. H. Prostate, Right Lateral Dickey Biopsy: Received, properly labeled, are two H [...] two unstained slides. /al 06/14/2024 2:04 PM [facility] Disclaimer Unless otherwise specified, all tissue is 10% NB formalin fixed and paraffin embedded. Technical pathology services provided by [facility] at [address], [place] [address] (CLIA #[id number]/Royal Mireles MD, Snath Handle Assembler) 06/14/2024 2:04 PM [facility] Tissue Prostatic structure / Unknown [...] MD LAB PATHOLOGY ORDERABLES Fi nal Result [facility] ([facility]) [facility] [address] [place] [address], from Last 3 Months Insurance MEDICARE [facility] Care Teams Batcher Operator Relationship Specialty Start Date End Date Keith Diaz MD [address] PCP - General 07/31/22
--- OUTSIDE RECORDS SUMMARY | 2024-08-17 07:34 | XMS_ITS | Encounter Summary ---
Author Organization [facility] Address [address] [place] [address] Care Team Providers Care Paying Teller Name Role Phone Keith Diaz MD Primary Care Provider [phone] Encounter Details Date Type Department Care Team (Late st Contact Info) Description 06/09/2024 Lab Requisition [facility] - Main Lab [address] [facility] [place] [address] Guy Capellan MD [address] [facility] [address] [place] [address] Elevated prostate specific antigen (PSA) Social History [...] Description 09/16/2024 8:00 AM EDT Ancillary Procedure [facility] - [facility] [address] [facility] [address] [place] [phone] 03/01/2025 8:00 AM EDT Office Visit Pulmonolgy - [place] [address] [facility] [address] [place] [address] Marleni Monroy MD 175 [facility] 200 [place], [place] [id number] documented as of this encounter Procedures Procedure Name Priority Date/Time Associated Diagnosis Comments AP OUTSIDE CONSULT Routine 06/07/2024 Elevated prostate specific antigen (PSA) documented in this encounter Results * Anatomic pathology outside consult (06/07/2024) Final Diagnosis A. Prostate, Left Middle Axis (Core Biopsy): - Benign prostate tissue. B. Prostate, Left Lateral Axis (Core Biopsy): - Benign prostate tissue. C. Prostate, Left Middle Middle (Core Biopsy): - Benign prostate tissue. D. Prostate, Left Lateral Middle (Core Biopsy): - Benign prostate tissue. E. Prostate, Left Middle Base (Core Biopsy): - Benign prostate tissue. F. Prostate, Left Lateral Base (Core Biopsy): - Benign prostate tissue. G. Prostate, Right Middle Axis (Core Biopsy): - Benign prostate tissue. H. Prostate, Right Lateral Axis (Core Biopsy): - Benign prostate tissue. I. Prostate, Right Middle Middle (Core Biopsy): - Prostatic acinar adenocarcinoma, grade group 2, Northport score (3+4=7). - Tumor continuously involves 60% [...] - Prostatic acinar adenocarcinoma, grade group 5, Northport score (4+5=9). - Tumor continuously involves 80% of 1 of 1 tissue core. M. Prostate, Right Sided MRI Lesion (Core Biopsy): - Prostatic acinar adenocarcinoma, grade group 3, Northport score (4+3=7). - Tumor continuously involves 70% of 1 of 1 tissue core. 06/14/2024 2:04 PM EST [facility] Clinical Information Elevated PSA R97.20 PSA: 16.4 (02/06/24) [id number] 06/14/2024 2:04 PM EST [facility] Gross Description A. Prostate, Left Middle Axis Biopsy: Received, properly labeled, are two H and E stained slides and two unstained slides. B. Prostate, Left Lateral Axis Biopsy: Received, properly labeled, are two H [...] two unstained slides. G. Prostate, Right Middle Axis Biopsy: Received, properly labeled, are two H and E stained slides and two unstained slides. H. Prostate, Right Lateral Axis Biopsy: Received, properly labeled, are two H [...] paraffin embedded. Technical pathology services provided by [facility] at [address] [place] [address] [address], [place] [address] (CLIA #[id number]/Royal Mireles MD, Bus Inspector) 06/14/2024 2:04 PM [facility] [...] ORDERABLES Fi nal Result Performing Organization Address City/State/[facility] Co de Phone Number [facility] [address] [place] [address], documented in this encounter Visit Diagnoses Diagnosis Elevated prostate specific antigen (PSA) documented in this encounter Care Teams Paying Teller Relationship Specialty Start Date End Date Keith Diaz MD [facility] Conchisjanene Audelia [address] PCP - General 07/31/22 documented as of this encounter
[2024-08-17 07:40] VITALS: BP 124/63; PULSE 77; O2SAT 96
--- NOTE | 2024-08-17 07:40 | A.OFFVIS_ITS ---
Vital Signs 08/17/24 07:40 08/17/24 08:56 BP 124/63 166/82 H Blood Pressure Location Lt brachial Rt brachial Position Sitting Sitting Pulse 77 74 Pulse Source Pulse Oximeter Pulse Oximeter Pulse Oximetry (%) 96 95 Oxygen Delivery Method Room Air Room Air Comment Pre-Op Post-Op Intake Visit Reasons: BILATERAL THERAPEUTIC L3, L4, DRL5 MBB Allergies No Known Allergies Allergy (Verified 06/04/24 10:11) REPLACED BY [facility] Medical History (Updated 11/13/23 @ 09:25 by Yeni Benedict, RESEARCH AGRICULTURAL ENGINEER, STRATEGIC INSIGHTS LEAD) Spinal stenosis Renal cyst PSA elevation Hypertension Hyperlipemia Physical Exam Vital Signs: Last Vital Signs Pulse 74 08/17/24 08:56 BP 166/82 H 08/17/24 08:56 Pulse Ox 95 08/17/24 08:56 Oxygen Delivery Method Room Air 08/17/24 08:56 Assessment & Plan Assessment & Plan (1) Spinal stenosis: Code(s): M48.00 - Spinal stenosis, site unspecified Category: Medical (2) Lumbar spondylosis: Code(s): M47.816 - Spondylosis without myelopathy or radiculopathy, lumbar region Category: Medical Plan Therapeutic bilateral medial branch block L3, L4, dorsal ramus L5. Informed consent was thoroughly explained to the patient before the procedure.? The patient came to the operating room.? He was positioned prone on operating table with a pillow under her abdomen.? Time-out was performed delineating correct site and side of the procedure, nature of the injection, name and date of of the patient. The lower back and upper buttocks of the patient were prepped with ChloraPrep and draped with sterile utility towels.? C-arm was brought over the operating field and the point of interest were delineated as confluence of the superior articular process of L4 vertebra and L5 vertebra bilaterally with corresponding transverse process bilaterally, as well as confluence of the superior articular process of S1 bilaterally with sacral ala. the point of interest projection to the skin was injected with small amount of mixture of lidocaine 2% and ropivacaine 0.5%. After that 22 gauge 3-1/2 inch needle was driven to the point of interest in tunnel vision fashion. When needle gently contacted the bone, injection of the contrast was performed delineating no intravascular and no intrathecal spread of the contrast. After that injection of the small amount of ropivacaine 0.5% mixed with Kenalog into each target site was performed. Total dose of Kenalog was 40 mg. Upon completion of the injections the needle was removed sterile Band-Aids were applied. The patient tolerated procedure well. Orders: Orders FL guidance in treatment room Today M47.816 - Spondylosis without myelopathy or radiculopathy, lumbar region Coding Level of Care Code Procedure Only Diagnoses Spinal stenosis M48.00 Lumbar spondylosis M47.816
[2024-08-17 08:56] VITALS: BP 166/82; PULSE 74; O2SAT 95
== END 2024-08-17 08:56 | disposition home or self-care (01) ==
LOC: HO.PMCPRC 07:31
PROVIDERS: PCP Internal Medicine; Visit Provider Anesthesiology
DX: M47.816 Spondylosis without myelopathy or radiculopathy, lumbar region (principal); M48.00 Spinal stenosis, site unspecified
CPT/HCPCS: 64493; 64494

== ENCOUNTER 2024-09-01 08:42 | Outpatient (AMB) | payer MEDICARE, SELFPAY ==
--- NOTE | 2024-09-01 08:47 | MHC.OFFVIS ---
Vital Signs 09/01/24 08:48 Height 5 ft 9 in Weight 203 lb BMI 30.0 BP 133/80 Blood Pressure Location Lt brachial Position Sitting Pulse 73 Pulse Source Pulse Oximeter Pulse Oximetry (%) 95 Oxygen Delivery Method Room Air Intake Visit Reasons: BILATERAL THERAPEUTIC L3, L4, DRL5 MBB Wire Winding Machine Tender Required: No Allergies No Known Allergies Allergy (Verified 09/01/24 08:51) Medication List - Last Reconciled 09/01/24 by Lianne Gee LPN aspirin 81 mg PO DAILY atorvastatin mg PO cyclobenzaprine 10 mg PO TID latanoprost 0.005% drfelice ophthalmic (eye) metoprolol succinate ER (Toprol XL) 25 mg PO DAILY mirtazapine 7.5 mg PO BEDTIME multivitamin 1 tab PO DAILY nifedipine ER 60 mg PO DAILY HPI Comments Details: Mauro presents back to the office today for follow-up, 2 weeks status post bilateral therapeutic L3-L4 DR L5 medial branch blocks with local anesthetic Denies improvement in his pain since the injections. Pain today is 0/10 at rest, 10/10 with walking He previously underwent diagnostic L3-L4 DR L5 medial branch blocks with 100% pain relief for 12 hours. He was advised that therapeutic injections have the potential to exacerbate axial back pain secondary to spondylosis due to the particulate steroid. He was previously planning radiofrequency ablation but felt the process was taking too long, he would like to proceed with RFA at this time. Prior: Patient presents back to the office today for follow up lower back pain Pending lumbar MBB RFA, prior auth has been submitted but patient does not wish to continue waiting as he feels it has taken too long Today would like to discuss options and would like to plan for therapeutic injections Prior: Mauro presents back to the office today for follow-up, 3 days status post bilateral diagnostic L3-L4 DR L5 medial branch blocks with local anesthetic. He reports 100% pain relief for 12 hours after the procedure with improvement in functional mobility Denies any untoward effects of the procedure. Prior: Patient presents back to the office today for follow-up, review of recent MRI. MRI reviewed, results as per below. Pain today is rated as 4/10, worse with activity. He states over the last several weeks pain has suffering with midline axial back pain of his lower back. He has not been suffering with any pain, weakness, fatigue of his lower extremities even with walking. The pain in his lower back is exacerbated by activity, bending and twisting Denies radiation of the pain down either lower extremity. Denies red flag symptoms including new loss of bowel, bladder or saddle anesthesia. Prior: Mauro is a very pleasant 83-year-old male who presents to the office today for evaluation management of his chronic lower back pain Patient reports he has been suffering with this pain for ?a couple years . Endorses axial back pain with walking, improves with flexion and rest. He was evaluated by neurosurgeon years ago and offered surgery, he was told he would need to learn to walk again afterwards therefore he declined surgery. At that time he did PT which helped and pain had improved. 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 He again tried physical therapy several months ago with no improvement of his pain. He denies pain or fatigue of his legs with walking. Denies radiation of the pain down either lower extremity. Endorses some pain with twisting. No pain increase with coughing or sneezing. Denies pain with lumbar flexion or extension. He denies red flag symptoms including new loss of bowel, bladder or saddle anesthesia. Patient unable to take nonsteroidal anti-inflammatory medication due to current use of Brilinta. He takes Tylenol with minimal improvement. He has tried Voltaren gel, lidocaine patches all without improvement of his pain. Denies history of back surgeries, implantable devices, pacemaker or defibrillator. Recent x-rays reviewed, results as per below [facility] Medical History (Updated 11/13/23 @ 09:25 by Yeni Benedict, HEBREW TEACHER, BRIM STRETCHING MACHINE OPERATOR) Spinal stenosis Renal cyst PSA elevation Hypertension Hyperlipemia Review of Systems Const All systems reviewed & are unremarkable except as noted in HPI and below Physical Exam Vital Signs: Last Vital Signs Pulse 73 09/01/24 08:48 BP 133/80 09/01/24 08:48 Pulse Ox 95 09/01/24 08:48 Oxygen Delivery Method Room Air 09/01/24 08:48 BMI result Body Mass Index 30.0 General: awake, alert, oriented. Answers questions appropriately. Fully engaged in examination. Skin: warm, dry, intact HEENT: Normocephalic. Hearing intact. Cardiac: External chest normal in appearance. Respiratory: No cough, audible wheezing or stridor. Abdomen: without gross distension. MS: No obvious swelling or deformities. Able to transition from sit to stand unassisted. Ambulates with bilaterally normal heel strike and toe off Maintains slight forward flexion posture Neurological: Oriented to person, place, time and situation. Thought process intact. No gait abnormalities appreciated. Psychiatric: Appropriate mood and affect. Good judgment and insight. Results Reviewed Results Reviewed: 01/05/24 MRI LS FINDINGS: VERTEBRAL BODIES AND PARASPINAL STRUCTURES: There is a sigmoid scoliosis, convex to the right in the mid lumbar region, unchanged. On the sagittal images there are mild grade 1 anterolistheses of L2 on L3 and L4 on L5, and there is a retrolisthesis of L1 on L2. 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 There is marked narrowing of intervertebral disc height with partial fusion of the vertebral bodies at L5-S1. There are prominent bilateral lateral osteophytes at this level. Narrowing of intervertebral disc height is also demonstrated at other levels with loss of signal consistent with multilevel disc desiccation. There are mild degenerative endplate contour changes with mild edematous signal anteriorly and toward the right at L5 which has developed since the prior study. There are ankylosis changes of the sacroiliac joints. Vertebral body heights are maintained and there are no acute fractures. There are Schmorl's nodes at adjacent endplates at multiple levels. There is increased T1 and T2 signal in the body of L2 diffusely consistent with a large hemangioma. A small hemangioma is seen in the body of T11. Overall, marrow signal is slightly heterogenous. The infrarenal abdominal aorta is tortuous. There are multiple bilateral parapelvic and cortical renal cysts which do not need further imaging evaluation. The visualized pelvic structures are unremarkable. CONUS MEDULLARIS AND CAUDA EQUINA: Normal, terminating at the level of L1-L2. The lower thoracic spinal cord appears normal. There is crowding of the cauda equina nerve roots at multiple levels due to spondylosis, most severe at L2-L3 and L3-L4. The filum terminale appears normal. SPINAL LEVELS: T11-T12: There is moderate bilateral facet arthropathy with focal right-sided ligamentum flavum thickening, which narrows the right subarticular recess. There is also distortion of the thecal sac on the right. There is a small posterior disc protrusion with an annular fissure in the midline with some distortion of the ventral thecal sac and narrowing of the subarticular recesses. The neural foramina are patent bilaterally. T12-L1: The facet joints appear normal bilaterally. Disc contour is normal. There is no central stenosis or foraminal narrowing. L1-L2: There is mild bilateral facet arthropathy. There is a broad-based posterior disc protrusion which slightly more prominent on the right and there is mild flattening of the ventral thecal sac with narrowing of the right subarticular recess. There is mild central stenosis. There is a right foraminal disc protrusion impinging on the exiting right L1 nerve root. L2-L3: There is moderate to severe bilateral facet arthropathy with ligamenta flava hypertrophy and facet joint effusions. There is a broad-based posterior disc protrusion which compresses the thecal sac and markedly narrows the bilateral subarticular recesses. There is severe central stenosis. There are left greater than right foraminal disc protrusions, and there is narrowing of the left neural foramen from a disc protrusion and facet osteophyte. Milder foraminal narrowing is seen on the right. L3-L4: There is markedly severe bilateral facet arthropathy with ligamenta flava hypertrophy and a possible synovial cyst developing anteromedially on the left. There is a broad-based posterior disc protrusion which compresses the thecal sac and markedly narrows the bilateral subarticular recesses, which appears slightly more prominent on the left. There is a left foraminal disc protrusion extending far laterally with impingement on the exiting and extraforaminal segments of the left L3 nerve root. A smaller disc protrusion is seen on the right. L4-L5: There is severe bilateral facet arthropathy with ligamenta flava hypertrophy. There is unroofing of the disc as a result of anterolisthesis and there is mild narrowing of the bilateral subarticular recesses with moderate central stenosis. There are bilateral inferior foraminal disc protrusions. L5-S1: There are moderate to severe bilateral facet arthropathic changes. There is a posterior disc osteophyte complex which is more prominent on the left with some flattening of the ventral thecal sac, and disc osteophytes extend into the neural foramina bilaterally with impingement on the exiting L5 nerve roots. There is no central stenosis. MR/MR lumbar spine wo con IMPRESSION: 1. At L2-L3 there is facet arthropathy and there is a broad-based posterior disc protrusion. There is severe central stenosis and there is narrowing of the bilateral subarticular recesses. There is left greater than right foraminal narrowing. 2. At L3-L4 there is markedly severe facet arthropathy. There is a broad-based posterior disc protrusion with marked narrowing of the bilateral subarticular recesses. There is a left foraminal disc protrusion extending far laterally with impingement on the exiting and extraforaminal segments of the left L3 nerve root. 3. At L4-L5 there is severe facet arthropathy. There is anterolisthesis and there is moderate central stenosis. 4. At L5-S1 there are facet arthropathic changes and there is a posterior disc osteophyte complex. There is no central stenosis. There are bilateral foraminal disc osteophyte complexes impinging on the exiting L5 nerve roots. 5. At L1-L2 there is facet arthropathy and there is a posterior disc protrusion. There is mild central stenosis. There is a right foraminal disc protrusion impinging on the exiting right L1 nerve root. Assessment & Plan Assessment & Plan (1) Spinal stenosis: Code(s): M48.00 - Spinal stenosis, site unspecified Category: Medical (2) Lumbar spondylosis: Code(s): M47.816 - Spondylosis without myelopathy or radiculopathy, lumbar region Category: Medical Plan Mauro presented back to the office today for follow-up lower back pain. Two weeks status post bilateral therapeutic L3-L4 DR L5 medial branch blocks 04/2024 underwent diagnostic bilateral L3 L4 DR L5 MBBs with 100% pain relief for 12 hours after the procedure with improvement in functional mobility. Reports no improvement in pain after the therapeutic injections, patient was advised that this is a potential outcome with therapeutic to do increased irritation with particulate steroid use. He would like to proceed with RFA as previously discussed. Patient has exhausted conservative therapy including PT, topical NSAIDs, Tylenol all without improvement of his symptoms. Patient unable to take oral NSAIDs due to current use of Brilinta. Discussed options for treatment including diagnostic interventional testing, epidural steroid injections, peripheral nerve stimulation with Sprint, RFA and more permanent neuromodulation. Will schedule for fluoroscopy guided bilateral L3-L4 DR L5 RFA with local anesthetic. This will be done in 2 visits, right side to be completed 1st with left-sided to follow after 2 weeks. All questions and concerns answered, patient agrees with the plan. Patient will follow-up in the office after procedure, sooner if needed Coding Level of Care Code Est Pt Level 3 (57237) Complex EM visit Add On G2211 Diagnoses Spinal stenosis M48.00 Lumbar spondylosis M47.816
[2024-09-01 08:48] VITALS: BP 133/80; PULSE 73; O2SAT 95
--- OUTSIDE RECORDS SUMMARY | 2024-09-01 09:15 | XMS_ITS ---
Author Organization [facility] Address [address] [place] [address] Care Team Providers Care Ammonia Refrigeration Worker Name Role Phone Keith Diaz MD Primary Care Provider Lj Berger Unavailable [phone] BlackAbelAfshan Unavailable [phone] Allergies No Known Allergies REASON FOR VISIT [...] Ulcer of toe of right foot (disorder) ([id number]) Skin ulcer of toe of right foot, limited to breakdown of skin (L97.511) Active confirmed Nonapplicable Vital Signs Height 5 ft 9 in in 09/09/2023 Weight 195 lbs 09/09/2023 BMI 28.79 kg/m2 09/09/2023 Procedures Procedure Date Ordered Date Performed Result Body Sit e 34599- Debride <25 sq cm 09/09/2023 N/A Encounters Encounter Location Date Provider [facility] [address] 09/09/2023 Afshan Michael Skin ulcer of toe [...] INSTRUCTIONS.pdf) Pending Test Test Name Order Date 75456- Debride <25 sq cm 09/09/2023 Next Appt [...] of the wound post debridement is stable (68278) Progress Notes * Mauro GRACE ADOB: (83 yo M)Acc No.[id number]:09/09/2023 Progress Notes Patient:?Mauro Grace Provider:?Afshan Michael DPM :1940???Age:83 Y???Sex:Male Golden e:09/09/2023 Address:[address], [place], [place] Pcp:Keith Diaz MD Subjective: * Chief Complaints: [...] ?Exercise: work, fishing. ?Marital status: . 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 * Medications:?TakingMultivita min - Tablet 1 tablet [...] of the wound post debridement is stable (54716).? * Procedure Codes:?41089 ACTIV E WOUND CARE/20 CM OR <, [...] Michael DPM Date:?2023 Generated for Printi olivia/Chan/eTransmitting on:?09/01/2024 09:15 AM EDT History and Physical Notes * HPI (History [...]
--- OUTSIDE RECORDS SUMMARY | 2024-09-01 09:15 | XMS_ITS | Clinical Summary ---
Author Organization [facility] [address] [facility] Address [address] [place] [address] Phone Care Team Providers Care Motorcycle Assembler Name Role Phone Keith Diaz MD Primary Care Provider [phone] Allergies No known active allergies Medications aspirin 81 mg EC tablet Take 1 tablet (81 mg total) by mouth 1 (one) time each day. 3 Active ticagrelor (BRILINTA) 90 mg tablet Take 1 tablet (90 mg total) by mouth 2 (two) times a day. Active latanoprost (XALATAN) 0.005 % ophthalmic solution Administer 1 drop into both eyes at bedtime. Active [id number]-vit L-qqsxfn-dxvfymt (PreserVision AREDS 2 Plus MV) 200 mcg-15 [...] Department Care Team Description 06/09/2024 Lab Requisition [facility] - Main Lab [address] [facility] [address] Guy Capellan MD Elevated prostate specific antigen (PSA) from Last 3 Months Surgical History Surgery Date Site/Laterality Comments COLONOSCOPY PROCEDURE: HISTORICAL COLONOSCOPY OTHER SURGICAL HISTORY Bilateral PROCEDURE: HISTORY OTHER; COMMENT: Hip replacement Medical History Medical History Date Comments CKD (chronic kidney disease) stage 3, GFR 30-59 ml/min ([facility]) DX:CKD (chronic kidney dise ase) stage 3, GFR 30-59 ml/min ([facility]) PSA elevation 08/07/2021 DX:PSA elevation Spinal [...] Description 09/16/2024 8:00 AM EDT Ancillary Procedure [facility] [address] [facility] [address] [place] [phone] 03/01/2025 8:00 AM EDT Office Visit Pulmonolgy - [place] [address] [facility] [address] [place] [address] Marleni Monroy MD [address] [facility] [address] [place] [address] 03/31/2025 8:50 AM EDT Office Visit [facility] [address] [place] [phone] Jorge Dong MD [address] [place] [address] [address] [place] [address] Health Maintenance Due Date Last Done Comments [...] (06/07/2024) Final Diagnosis A. Prostate, Left Middle [place] (Core Biopsy): - Benign prostate tissue. B. Prostate, Left Lateral [place] (Core Biopsy): - Benign prostate tissue. C. Prostate, Left Middle Middle (Core Biopsy): - Benign prostate tissue. D. Prostate, Left Lateral Middle (Core Biopsy): - Benign prostate tissue. E. Prostate, Left Middle Base (Core Biopsy): - Benign prostate tissue. F. Prostate, Left Lateral Base (Core Biopsy): - Benign prostate tissue. G. Prostate, Right Middle [place] (Core Biopsy): - Benign prostate tissue. H. Prostate, Right Lateral [place] (Core Biopsy): - Benign prostate tissue. I. 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 - Tumor continuously involves 60% of 1 of 1 tissue core. J. Prostate, Right Lateral Middle (Core Biopsy): - Prostatic acinar adenocarcinoma, grade group 2, [place] score (3+4=7). - Tumor continuously involves 10% of 1 of 1 tissue core. K. Prostate, Right Middle Base (Core Biopsy): - Prostatic acinar adenocarcinoma, grade group 3, [place] score (4+3=7). - Tumor continuously involves 25% of 1 of 1 tissue core. L. Prostate, Right Lateral Base (Core Biopsy): - Prostatic acinar adenocarcinoma, grade group 5, Karla score (4+5=9). - Tumor continuously involves 80% of 1 of 1 tissue core. M. Prostate, Right Sided MRI Lesion (Core Biopsy): - Prostatic acinar adenocarcinoma, grade group 3, [place] score (4+3=7). - Tumor continuously involves 70% of 1 of 1 tissue core. 06/14/2024 2:04 PM EST [facility] Clinical Information Elevated PSA R97.20 PSA: 16.4 (02/06/24) [id number] 06/14/2024 2:[address] [facility] Gross Description A. Prostate, Left [place] Biopsy: Received, properly labeled, are two H and E stained slides and two unstained slides. B. Prostate, Left Lateral [place] Biopsy: Received, properly labeled, are two H [...] two unstained slides. G. Prostate, Right [place] Biopsy: Received, properly labeled, are two H and E stained slides and two unstained slides. H. Prostate, Right Lateral [place] Biopsy: Received, properly labeled, are two H [...] two unstained slides. /al 06/14/2024 2:[address] [facility] Disclaimer Unless otherwise specified, all tissue is 10% NB formalin fixed and paraffin embedded. Technical pathology services provided by [facility] [id number] [place] [address] (CLIA #[id number]/Royal Mireles MD, Production Grader) 06/14/2024 2:[address] [facility] Tissue Prostatic structure / Unknown [...] LAB PATHOLOGY ORDERABLES Fi nal Result [facility] [address] [place] [address], from Last 3 Months Insurance MEDICARE [employer] Care Teams Motorcycle Assembler Relationship Specialty Start Date End Date Keith Diaz MD [address] PCP - General 07/31/22
--- OUTSIDE RECORDS SUMMARY | 2024-09-01 09:15 | XMS_ITS | Encounter Summary ---
Author Organization [facility] Address [address] [place] [address] Care Team Providers Care Creative Designer Name Role Phone Keith Diaz MD Primary Care Provider [phone] Encounter Details Date Type Department Care Team (Late st Contact Info) Description 06/09/2024 Lab Requisition [facility] - Main Lab [address] [facility] [place] [phone] Guy Capellan MD 100 [facility] 120 [place] [address] Elevated prostate specific antigen (PSA) Social History [...] Description 09/16/2024 8:00 AM EDT Ancillary Procedure [facility] Card[facility] - [facility] [address] [facility] 101 [place] [phone] 03/01/2025 8:00 AM EDT Office Visit Pulmonolgy - [facility] 200 [place] [address] Marleni Monroy MD 175 [facility] 200 [place], [place] [phone] 03/31/2025 8:50 AM EDT Office Visit [facility] Cardiology [facility] [address] [place] [address] [address] [place] [address] Jorge Dong MD [address] [place] [address] Dr [address] [place] [address] documented as of this encounter Procedures Procedure Name Priority Date/Time Associated Diagnosis Comments AP OUTSIDE CONSULT Routine 06/07/2024 Elevated prostate specific antigen (PSA) documented in this encounter Results * Anatomic pathology outside consult (06/07/2024) Final Diagnosis A. Prostate, Left Middle Alvin (Core Biopsy): - Benign prostate tissue. B. Prostate, Left Lateral Alvin (Core Biopsy): - Benign prostate tissue. C. Prostate, Left Middle Middle (Core Biopsy): - Benign prostate tissue. D. Prostate, Left Lateral Middle (Core Biopsy): - Benign prostate tissue. E. Prostate, Left Middle Base (Core Biopsy): - Benign prostate tissue. F. Prostate, Left Lateral Base (Core Biopsy): - Benign prostate tissue. G. Prostate, Right Middle Alvin (Core Biopsy): - Benign prostate tissue. H. Prostate, Right Lateral Alvin (Core Biopsy): - Benign prostate tissue. I. Prostate, Right Middle Middle (Core Biopsy): - Prostatic acinar adenocarcinoma, grade group 2, Dublin score (3+4=7). - Tumor continuously involves 60% of 1 of 1 tissue core. J. Prostate, Right Lateral Middle (Core Biopsy): - Prostatic acinar adenocarcinoma, grade group 2, Dublin score (3+4=7). - Tumor continuously involves 10% of 1 of 1 tissue core. K. Prostate, Right Middle Base (Core Biopsy): - Prostatic acinar adenocarcinoma, grade group 3, Dublin score (4+3=7). - Tumor continuously involves 25% of 1 of 1 tissue core. L. Prostate, Right Lateral Base (Core Biopsy): - Prostatic acinar adenocarcinoma, grade group 5, Karla score (4+5=9). - Tumor continuously involves 80% of 1 of 1 tissue core. M. Prostate, Right Sided MRI Lesion (Core Biopsy): - Prostatic acinar adenocarcinoma, grade group 3, Dublin score (4+3=7). - Tumor continuously involves 70% of 1 of 1 tissue core. 06/14/2024 2:04 PM [facility] Clinical Information Elevated PSA R97.20 PSA: 16.4 (02/06/24) [id number] 06/14/2024 2:04 PM [facility] Gross Description A. Prostate, Left Middle Alvin Biopsy: Received, properly labeled, are two H and E stained slides and two unstained slides. B. Prostate, Left Lateral Alvin Biopsy: Received, properly labeled, are two H [...] two unstained slides. G. Prostate, Right Middle Alvin Biopsy: Received, properly labeled, are two H and E stained slides and two unstained slides. H. Prostate, Right Lateral Alvin Biopsy: Received, properly labeled, are two H [...] two unstained slides. /al 06/14/2024 2:04 PM [facility] Disclaimer Unless otherwise specified, all tissue is 10% NB formalin fixed and paraffin embedded. Technical pathology services provided by [facility]rology at [address] [place] [address] [address], [place] [address] (CLIA #[id number]/Royal Mireles MD, Stone Hand) 06/14/2024 2:04 PM EST [facility] Tissue Prostatic structure / [...] MD LAB PATHOLOGY ORDERABLES Fi nal Result [facility] 299 [place] [address], documented in this encounter Visit Diagnoses Diagnosis Elevated prostate specific antigen (PSA) documented in this encounter Care Teams Creative Designer Relationship Specialty Start Date End Date Keith Diaz MD [address] [facility] 102 [place], [place] PCP - General 07/31/22 documented as of this encounter
--- OUTSIDE RECORDS SUMMARY | 2024-09-01 09:15 | XMS_ITS ---
Author Organization [facility] Address [address] [place] [address] Care Team Providers Care Tire Maintenance Technician Name Role Phone Keith Diaz MD Primary Care Provider Lj Berger Unavailable [phone] REASON FOR VISIT CANVASS MANAGER PPWK Entered Encounters Encounter Location Date Provider Diagnosis [facility] [address] [place] [address] 08/20/2023 Lj Mehta Plan Of Treatment No Information Progress Notes * Mauro GRACE ADOB: 1 (83 yo M)Acc No.[id number]:08/20/2023 Patient:?Mauro Grace :1940???Age:83 Y???Sex:Male Address:[address] [place] [address] * true * Date:? Generated for Printi olivia/Famarg/eTransmitting on:?09/01/2024 09:15 AM EDT
--- OUTSIDE RECORDS SUMMARY | 2024-09-01 09:15 | XMS_ITS | Patient Health Record ---
Author Organization [facility] Address [address] [facility] [place] [address] Care Team Providers Care Enterprise Sales Person Name Role Phone Keith Diaz MD Primary Care Provider Lj Berger Unavailable [phone] Afshan Michael Unavailable [phone] Allergies No Known Allergies Reason For Referral [...] Ulcer of toe of right foot (disorder) ([id number]) Skin ulcer of toe of right foot, limited to breakdown of skin (L97.511) Active confirmed Nonapplicable Vital Signs Height 5 ft 9 in in 09/09/2023 Weight 195 lbs 09/09/2023 BMI 28.79 kg/m2 09/09/2023 Procedures Procedure Date Ordered Date Performed Result Body Sit e 55126- Debride <25 sq cm 09/09/2023 N/A Encounters Encounter Location Date Provider Diagnosis [facility] [address] 09/09/2023 Afshan Black Skin ulcer of toe [...] INSTRUCTIONS.p df) 09/09/2023 Other Plan Of Treatment Pending Test Test Name Order Date 27805-Emhbjgij Plate 12/10/2016 32428-Vdruunaq Plate 08/26/2023 42774- Debride <25 sq cm 09/09/2023 20918- Debride <25 sq cm 12/26/2016 49135-GUEXLSYP OF HEMATOMA/FLUID 021 Insurance Providers Payer Name Payer Address Payer Phone Subscriber Number Group Number Insured Name Patient Relationship to Insured Coverage Start Date Coverage End Date Medicare National Govt Svcs Inc [address] [place] [place] [address] [id number] Mauro Grace Self - patient is the insured [employer] Blue [employer] [address] [place] [address] [phone] [id number] Mauro Grace Self - patient is the insured Medical (General) History Medical History History ICD Code Cataracts Hypertension Measles Chicken pox Joint implants/screws Heart disease Spina bifida Vascular grafts Surgical History Surgery Date(Month/Year) cataract surgery detached retina hip replacement stent 02/2023 Hospitalization History Reason Date(Month/Year) brain bleed 10/2022
--- OUTSIDE RECORDS SUMMARY | 2024-09-01 09:15 | XMS_ITS ---
Author Organization [facility] Address [address] [facility] [place] [address] Care Team Providers Care Value Advisor Name Role Phone Keith Diaz MD Primary Care Provider Lj Berger Unavailable [phone] BlackAbelAfshan Unavailable [phone] Allergies No Known Allergies REASON FOR VISIT [...] Ordered Date Performed Result Body Sit e 77294-Vqnrqmge Plate 08/26/2023 N/A Encounters Encounter Location Date Provider Diagnosis [facility] [place] [address] [place] [address] 08/26/2023 Afshan Black Ingrown nail L60.0 ; [...] INFECTIONS.pdf) Pending Test Test Name Order Date 33537-Tjsqskmy Plate 08/26/2023 Next Appt Details Follow Up: [...] Motrin was recommended for pain or discomfort (52576) , Pt DEFERS matricectomy Anesthesia 3cc of 1 percent Lid ocaine Plain local anesthesic utilizing aseptic technique Location Medial nail border , T5 Progress Notes * Mauro GRACE ADOB: 1 (83 yo M)Acc No.[id number]:08/26/2023 Progress Notes Patient:?Mauro Grace Provider:?Afshan Michael DPM :1940???Age:83 Y???Sex:Male Golden e:08/26/2023 Address: [address], [place], [facility] Pcp:Keith Diaz MD Subjective: * Chief Complaints: [...] ?Exercise: work, fishing. ?Marital status: . 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 * Medications:?TakingMultivita min - Tablet 1 tablet [...] - M79.675? Plan: * Treatment: 2.?Ingrown nail?Procedure: 22919-Qhyjlykc Plate * Procedures:?Nail Avulsion:?Location?Medial nail border , [...] Motrin was recommended for pain or discomfort (32293) , Pt DEFERS matricectomy.? * Procedure Codes:?16379 Avuls ion Plate, Modifiers: T5 * Preventive [...] Michael DPM Date:?2023 Generated for Oliver baker/Chan/Rodrigue on:?09/01/2024 09:14 AM EDT History and Physical Notes * [...]
== END 2024-09-01 09:10 | disposition home or self-care (01) ==
LOC: HO.PMC 08:42
PROVIDERS: PCP Internal Medicine; Visit Provider Registered Nurse Emergency
DX: M48.00 Spinal stenosis, site unspecified (principal); M47.816 Spondylosis without myelopathy or radiculopathy, lumbar region
CPT/HCPCS: 99213; G2211

== ENCOUNTER → 2024-09-01 08:42 | Outpatient (BNVA) | payer MEDICARE, SELFPAY | PROVIDERS: PCP Internal Medicine; Visit Provider Registered Nurse Emergency | DX: M48.00 Spinal stenosis, site unspecified (principal); M47.816 Spondylosis without myelopathy or radiculopathy, lumbar region | CPT/HCPCS: 99212 ==

== ENCOUNTER 2024-10-01 08:46 | Day surgery (SDC) | payer MEDICARE, SELFPAY ==
--- OUTSIDE RECORDS SUMMARY | 2024-09-30 15:27 | XMS_ITS ---
Author Organization [facility] Address [address] [place] [address] Care Team Providers Care Video Machines Mechanic Name Role Phone Keith Diaz MD Primary Care Provider Lj Berger Unavailable [phone] REASON FOR VISIT CTC OPERATOR PPWK Entered Encounters Encounter Location Date Provider Diagnosis [facility] [address] [place] [address] 08/20/2023 Lj Mehta Plan Of Treatment No Information Progress Notes * Mauro GRACE ADOB: 1 (83 yo M)Acc No.[id number]:08/20/2023 Patient:?Mauro Grace :1940???Age:83 Y???Sex:Male Address:[address] [place] [address] * true * Date:? Generated for Printi olivia/Babakg/eTransmitting on:?09/30/2024 03:27 PM EDT
--- OUTSIDE RECORDS SUMMARY | 2024-09-30 15:27 | XMS_ITS | Clinical Summary ---
Author Organization [facility] Address [address] [place] [address] Phone Care Team Providers Care Food And Beverage Director Name Role Phone Keith Diaz MD Primary Care Provider [phone] Allergies No known active allergies Medications aspirin 81 mg EC tablet Take 1 tablet (81 mg total) by mouth 1 (one) time each day. 3 Active ticagrelor (BRILINTA) 90 mg tablet Take 1 tablet (90 mg total) by mouth 2 (two) times a day. Active latanoprost (XALATAN) 0.005 % ophthalmic solution Administer 1 drop into both eyes at bedtime. Active vo-ndh-NK-vit K-rbbrwo-awlnthu (PreserVision AREDS 2 Plus MV) 200 mcg-15 [...] MULTIVITAMIN ORAL) Take by mouth daily. Active atorvastatin (LIPITOR) 80 mg tablet TAKE 1 TABLET BY MOUTH EVERY DAY 90 tablet 1 5 Active Active Problems Problem Noted Date Diagnosed [...] is adequate today. Aneurysm of ascending aorta (CMS/[facility] V24) 2022 Overview (08/26/2023): Last Assessment & Plan: The [...] Encounters Date Type Department Care Team Description 09/17/2024 Telephone [facility] - [facility] [address] [facility] [address] [place] [address] [place], [place] echo results 09/16/2024 8:00 AM EDT Ancillary Procedure [facility]iology [facility] [address] [place] [address] Aneurysm of the ascending aorta, without rupture ([facility] V24) from Last 3 Months Surgical History Surgery Date Site/Laterality Comments COLONOSCOPY PROCEDURE: HISTORICAL COLONOSCOPY OTHER SURGICAL HISTORY Bilateral PROCEDURE: HISTORY OTHER; COMMENT: Hip replacement Medical History Medical History Date Comments CKD (chronic kidney disease) stage 3, GFR 30-59 ml/min (CMS/HCC V24, CMS/HCC V28) DX:CKD (chronic kidney disea se) stage 3, GFR 30-59 ml/min ([facility]) PSA elevation 08/07/2021 DX:PSA elevation Spinal stenosis [...] Sign Reading Time Taken Comments Blood Pressure 116/74 09/16/2024 8:54 AM EDT Pulse 79 03/15/2024 7:35 AM EDT Temperature - - Respiratory Rate - - Oxygen Saturation - - Inhaled Oxygen Concentration - - Weight 92.5 kg (204 lb) 09/16/2024 8:54 AM EDT Height 175.3 cm (5' 9 ) 09/16/2024 8:54 AM EDT Body Mass Index 30.13 09/16/2024 8:54 AM EDT Plan of Treatment Upcoming Encounters Date Type Department Care Team (Late st Contact Info) Description 03/01/2025 8:00 AM EDT Office Visit Pulmonolgy - [place] [address] [facility] [address] [place] [phone] Marleni Monroy MD 175 [facility] [address] [place] [address] 03/31/2025 8:50 AM EDT Office Visit [facility] [address] [place] [phone] Jorge Dong MD [address] [place] [address] [address] [place] [address] Health Maintenance Due Date Last Done Comments RSV Immunization Adult Patients (1 - 1-dose 75+ series) 02/25/2016 Cholesterol Screening (Lipid Panel) 07/18/2023 Depression Screening 07/18/2023 Falls Risk Assessment 07/18/2023 Social Influencers of Health Screening 07/18/2023 Hypertension/CHF/CAD Annual BMP Blood Test 07/22/2023 Medicare Annual Wellness Visit 01/29/2024 01/28/2023 COVID-19 Vaccine ( season) 2024 03/12/2022, 10/15/2021, 02/22/2021, Additional history exists Influenza Vaccine (Season Ended) 2025 03/09/2021 DTaP,Tdap,and Td Vaccines (2 - Td or Tdap) 01/28/2033 01/28/2023 Pneumococcal Vaccine: 50+ Years Completed 11/03/2017, 08/17/2015 Zoster Vaccines Completed 01/22/2023, 08/07/2022 HIB Vaccines Aged Out No longer eligi [...] age to complete this topic Meningococcal B Vaccine Aged Out No l onger eligible based on patient's age to complete this topic RSV Immunization Patients Under 20 months Aged Out No longer eligible based on patient's age to complete this topic Varicella Vaccines Aged Out No longer eligible based on patient's age to complete this topic Procedures Procedure Name Priority Date/Time Associated Diagnosis Comments TRANSTHORACIC ECHOCARDIOGRAM (TTE) COMPLETE Routine 09/16/2024 8:54 AM EDT Aneurysm of the ascending aorta, without rupture ([facility] V24) from Last 3 Months Results * TRANSTHORACIC ECHOCARDIOGRAM (TTE) COMPLETE (09/16/2024 8:54 AM EDT) BSA 2.12 m2 CV PACS Left Atrium Minor Mellette 5.6 cm CV PACS Left Atrium Major Mellette 5.7 cm CV PACS LA Area Sys (A2C) 19 cm2 CV PACS LA Area Sys (A4C) 18 cm2 CV PACS LA Volume (BP) 50 mL CV PACS RA Area 17.4 cm2 CV PACS RA 2D Volume 42 mL CV PACS AV Regurgitation PHT 732 ms CV PACS AR Max Velocity 4.1 m/s CV PACS AV Peak Julian 1.5 m/s CV PACS AV Peak Gradient 9 mmHg CV PACS AV Mean Gradient 5 mmHg CV PACS Ao VTI 27.1 cm CV PACS AV Area Continuity Equation 3.1 cm2 CV PACS AV Area Peak Velocity 3.1 cm2 CV PACS Aortic Sinus Valsalva 3.9 cm CV PACS Ascending Aorta 4.0 cm CV PACS IVC Proximal 2.1 cm CV PACS IVSD 0.9 0.6 - 1.0 cm CV PACS LVIDD 5.1 4.2 - 5.8 cm CV PACS LVIDS 2.7 2.5 - 4.0 cm CV PACS LVOT Diameter 2.1 cm CV PACS LVOT Mean Julian 0.9 m/s CV PACS LVOT Mean Grad 4 mmHg CV PACS LVOT Peak VTI 24.1 cm CV PACS LVOT Peak Julian 1.4 m/s CV PACS LVOT Peak Gradient 8 mmHg CV PACS LVPWD 0.9 0.6 - 1.0 cm CV PACS MV E' Tissue Velocity Lateral 5 cm/s CV PACS MV E' Tissue Velocity Septal 6 cm/s CV PACS LVOT Area 3.5 cm2 CV PACS LVOT Stroke Volume 83 mL CV PACS MV Deceleration Wy[place] 3.8 m/s2 CV PACS E Wave Deceleration Time 150 119 - 242 ms CV PACS MV PHT 44 ms CV PACS MV Peak A Julian 0.76 m/s CV PACS MV Peak E Julian 0.57 m/s CV PACS MV Area PHT 5.0 cm2 CV PACS PV Acceleration Time 92 ms CV PACS RV Diastolic Basal Dimension 3.6 2.5 - 4.1 cm CV PACS RV S' 16 cm/s CV PACS TAPSE 19 mm CV PACS TR Peak Velocity 2.43 m/s CV PACS TR Peak Gradient 24 mmHg CV PACS E/E' Ratio Septal 10 CV PACS E/E' Ratio Averaged 10 CV PACS LVOT Stroke Index 40 mL/m2 CV PACS Relative Wall Thickness ratio 0.35 CV PACS LVOT:AV VTI Index 0.89 CV PACS FS 47 % CV PACS LV Mass 2D 164 g CV PACS Ascending Aorta Index 1.92 cm/m2 CV PACS LVOT flow 312 mL/s CV PACS RA 2D Volume Index 20 mL/m2 CV PACS EDDIE Index (VTI) 1.48 cm2/m2 CV PACS EDDIE Index (Pk Julian) 1.49 cm2/m2 CV PACS LVIDD Index 2.45 cm/m2 CV PACS LVIDS Index 1.30 cm/m2 CV PACS AV Velocity Ratio 0.93 CV PACS E/A Ratio 0.8 CV PACS E/E' Ratio Lateral 11 CV PACS LA Volume Index (BP) 24 mL/m2 CV PACS LV Mass Index 2D 79 g/m2 CV PACS Right Ventricular Peak Systolic Pressure 32 mmHg CV PACS Est. RA Pressure 8 mmHg CV PACS Anatomical Region Laterality Modality Ultrasound Narrative 09/16/2024 9:28 PM EDT ?Left ventricle cavity size is normal. Left ventricular systolic function is in the normal range with an ejection fraction of 55-60%. ?No regional LV wall motion abnormalities noted. ?Left ventricle wall thickness is normal. ?Right ventricle cavity is normal. Right ventricular systolic function is normal. ?Aortic??Valve: There is mild regurgitation. ?Aorta: Ascending aorta is mildly dilated at 4.0 cm. Left Ventricle Left ventricle cavity size is normal. Wall thickness is normal. Systolic function is normal with an ejection fraction of 55-60%. There are no regional LV wall motion abnormalities. E-A reversal consistent with mild diastolic relaxation abnormality. Right Ventricle Right ventricle cavity appears normal. Systolic function is normal. Left Atrium Left atrium cavity size is normal. Right Atrium Right atrium cavity is normal. IVC/SVC RA pressures is estimated to be 8 mmHg (IVC diameter <21 mm and decreases <50% during inspiration). Mitral Valve The leaflets are mildly thickened. There is annular calcification. There is trace to mild regurgitation. There is no evidence of mitral valve stenosis. Tricuspid Valve Tricuspid valve structure is normal. There is trace regurgitation. There is no evidence of tricuspid valve stenosis. The right ventricular systolic pressure is normal. Aortic Valve The aortic valve is trileaflet. There is mild regurgitation. There is no evidence of aortic valve stenosis. Pulmonic Valve Pulmonic valve structure is normal. There is trace pulmonic valve regurgitation. There is no evidence of pulmonic valve stenosis. Ascending Aorta Normal aortic root diameter. Ascending aorta is mildly dilated at 4.0 cm. Transverse aorta not well visualized. Pericardium There is an anterior fat pad. There is no pericardial effusion. Study Details Overall the study quality was technically difficult. Denise Cordero NP CV ECHO PROCEDURES Final Re sult from Last 3 Months Insurance MEDICARE [facility] Care Teams Food And Beverage Director Relationship Specialty Start Date End Date Keith Diaz MD [address] PCP - General 07/31/22
--- OUTSIDE RECORDS SUMMARY | 2024-09-30 15:27 | XMS_ITS | Patient Health Record ---
Author Organization [facility] Address [address] [facility] [place] [address] Care Team Providers Care Supplier Diversity Director Name Role Phone Keith Diaz MD Primary Care Provider Lj Berger Unavailable [phone] Allergies No Known Allergies Reason For Referral [...] Ulcer of toe of right foot (disorder) ([id number]) Skin ulcer of toe of right foot, limited to breakdown of skin (L97.511) Active confirmed Nonapplicable Plan Of Treatment Pending Test Test Name Order Date 65796-Tmptdtre Plate 12/10/2016 59365-Avkaweub Plate 08/26/2023 04503- Debride <25 sq cm 09/09/2023 32810- Debride <25 sq cm 12/26/2016 22079-BDFTEWOH OF HEMATOMA/FLUID 021 Insurance Providers Payer Name Payer Address Payer Phone Subscriber Number Group Number Insured Name Patient Relationship to Insured Coverage Start Date Coverage End Date Medicare National Govt Svcs Inc [address] [place] [address] [id number] Mauro Grace Self - patient is the insured [employer] Blue Shield [address] [place] [address] [id number] Mauro Grace Self - patient is the insured Medical (General) History Medical History History ICD Code Cataracts Hypertension Measles Chicken pox Joint implants/screws Heart disease Spina bifida Vascular grafts Surgical History Surgery Date(Month/Year) cataract surgery detached retina hip replacement stent 02/2023 Hospitalization History Reason Date(Month/Year) brain bleed 10/2022
--- OUTSIDE RECORDS SUMMARY | 2024-09-30 15:27 | XMS_ITS ---
Author Organization [facility] Address [address] [facility] [place] [address] Care Team Providers Care Nuclear Reactor Technician Name Role Phone Keith Diaz MD Primary Care Provider Lj Berger Unavailable [phone] BlackAbelAfshan Unavailable [phone] Allergies No Known Allergies REASON FOR VISIT [...] Ulcer of toe of right foot (disorder) ([id number]) Skin ulcer of toe of right foot, limited to breakdown of skin (L97.511) Active confirmed Nonapplicable Vital Signs Height 5 ft 9 in in 09/09/2023 Weight 195 lbs 09/09/2023 BMI 28.79 kg/m2 09/09/2023 Procedures Procedure Date Ordered Date Performed Result Body Sit e 43689- Debride <25 sq cm 09/09/2023 N/A Encounters Encounter Location Date Provider [facility] [address] 09/09/2023 Afshan Michael Skin ulcer of toe [...] INSTRUCTIONS.pdf) Pending Test Test Name Order Date 14254- Debride <25 sq cm 09/09/2023 Next Appt [...] of the wound post debridement is stable (07326) Progress Notes * Mauro GRACE ADOB: (83 yo M)Acc No.[id number]:09/09/2023 Progress Notes Patient:?Mauro Grace Provider:?Afshan Michael DPM :1940???Age:83 Y???Sex:Male Golden e:09/09/2023 Address:[address], [place], [place] Pcp:Keith Diaz MD Subjective: * Chief Complaints: [...] ?Exercise: work, fishing. ?Marital status: . 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 * Medications:?TakingMultivita min - Tablet 1 tablet [...] of the wound post debridement is stable (10714).? * Procedure Codes:?20201 ACTIV E WOUND CARE/20 CM OR <, [...] Michael DPM Date:?2023 Generated for Printi olivia/Chan/eTransmitting on:?09/30/2024 03:27 PM EDT History and Physical Notes * HPI [...]
--- OUTSIDE RECORDS SUMMARY | 2024-09-30 15:27 | XMS_ITS | Encounter Summary ---
Author Organization [facility] Address [address] [place] [address] Care Team Providers Care Cartridge Filler Name Role Phone Keith Diaz MD Primary Care Provider [phone] Encounter Details Date Type Department Care Team (Late Contact Info) Description 06/09/2024 Lab Requisition [facility] - Main Lab [address] [facility] [place] [phone] Guy Capellan MD [address] [facility] [address] [place] [address] Elevated prostate specific antigen (PSA) Social History [...] Department Care Team (Late Contact Info) Description 03/01/2025 8:00 AM EDT Office Visit Pulmonolgy - [place] [address] [place] [phone] Marleni Monroy MD [address] [facility] [address] [place], [place] [id number] 03/31/2025 8:50 AM EDT Office Visit [facility] Cardiology [facility] [address] [place] [address] Jorge Dong MD [address] [place] [address] [place] [address] documented as of this encounter Procedures Procedure Name Priority Date/Time Associated Diagnosis Comments AP OUTSIDE CONSULT Routine 06/07/2024 Elevated prostate specific antigen (PSA) documented in this encounter Results * Anatomic pathology outside consult (06/07/2024) Final Diagnosis A. Prostate, Left [place] (Core Biopsy): - Benign prostate tissue. B. Prostate, Left Lateral Jewell (Core Biopsy): - Benign prostate tissue. C. Prostate, Left Middle Middle (Core Biopsy): - Benign prostate tissue. D. Prostate, Left Lateral Middle (Core Biopsy): - Benign prostate tissue. E. Prostate, Left Middle Base (Core Biopsy): - Benign prostate tissue. F. Prostate, Left Lateral Base (Core Biopsy): - Benign prostate tissue. G. Prostate, Right [place] (Core Biopsy): - Benign prostate tissue. H. Prostate, Right Lateral Jewell (Core Biopsy): - Benign prostate tissue. I. 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 - Tumor continuously involves 80% of 1 of 1 tissue core. M. Prostate, Right Sided MRI Lesion (Core Biopsy): - Prostatic acinar adenocarcinoma, grade group 3, [place] score (4+3=7). - Tumor continuously involves 70% of 1 of 1 tissue core. 06/14/2024 2:04 PM EST [facility] Clinical Information Elevated PSA R97.20 PSA: 16.4 (02/06/24) [id number] 06/14/2024 2:04 PM [facility] Gross Description A. Prostate, Left [place] Biopsy: Received, properly labeled, are two H and E stained slides and two unstained slides. B. Prostate, Left Lateral Jewell Biopsy: Received, properly labeled, are two H [...] two unstained slides. G. Prostate, Right [place] Biopsy: Received, properly labeled, are two H and E stained slides and two unstained slides. H. Prostate, Right Lateral Jewell Biopsy: Received, properly labeled, are two H [...] two unstained slides. /al 06/14/2024 2:04 PM [facility] ([facility]) [facility] Disclaimer Unless otherwise specified, all tissue is 10% NB formalin fixed and paraffin embedded. Technical pathology services provided by [facility]rology at [facility] [id number], [place] [address] (CLIA #[id number]/Royal Mireles MD, Sports Activities Foul Judge) 06/14/2024 2:04 PM EST [facility] Tissue Prostate / Unknown 06/07/20242023 1:17 PM EST Tissue specimen (specimen) Prostate / Unknown 06/07/2024 06/09/2024 1: 21 PM EST Tissue specimen (specimen) Prostate / Unknown 06/07/2024 06/09/2024 1: 21 PM EST Tissue specimen (specimen) Prostate / Unknown 06/07/2024 06/09/2024 1: 21 PM EST Tissue specimen (specimen) Prostate / Unknown 06/07/2024 06/09/2024 1: 21 PM EST Tissue specimen (specimen) Prostate / Unknown 06/07/2024 06/09/2024 1: 21 PM EST Tissue specimen (specimen) Prostate / Unknown 06/07/2024 06/09/2024 1: 21 PM EST Tissue specimen (specimen) Prostate / Unknown 06/07/2024 06/09/2024 1: 21 PM EST Tissue specimen (specimen) Prostate / Unknown 06/07/2024 06/09/2024 1: 21 PM EST Tissue specimen (specimen) Prostate / Unknown 06/07/2024 06/09/2024 1: 21 PM EST Tissue specimen (specimen) Prostate / Unknown 06/07/2024 06/09/2024 1: 21 PM EST Tissue specimen (specimen) Prostate / Unknown 06/07/2024 06/09/2024 1: 21 PM EST Tissue specimen (specimen) Prostate / Unknown 06/07/2024 06/09/2024 1: 21 PM EST us Guy Capellan MD LAB PATHOLOGY ORDERABLES Fi nal Result [facility] ([facility] [address] [place] [address], documented in this encounter Visit Diagnoses Diagnosis Elevated prostate specific antigen (PSA) documented in this encounter Care Teams Cartridge Filler Relationship Specialty Start Date End Date Keith Diaz MD David Win [address] PCP - General 07/31/22 documented as of this encounter
--- OUTSIDE RECORDS SUMMARY | 2024-09-30 15:27 | XMS_ITS ---
Author Organization [facility] Address [address] [facility] [facility] [place] [address] Care Team Providers Care Rectifier Operator Name Role Phone Keith Diaz MD Primary Care Provider Lj Berger Unavailable [phone] BlackAbelAfshan Unavailable [phone] Allergies No Known Allergies REASON FOR VISIT [...] Ordered Date Performed Result Body Sit e 57371-Mcetgbzm Plate 08/26/2023 N/A Encounters Encounter Location Date Provider Diagnosis [facility] [place] [address] [place] [address] 08/26/2023 Afshan Black Ingrown nail L60.0 ; [...] INFECTIONS.pdf) Pending Test Test Name Order Date 55068-Ozieisbm Plate 08/26/2023 Next Appt Details Follow Up: [...] Motrin was recommended for pain or discomfort (32304) , Pt DEFERS matricectomy Anesthesia 3cc of 1 percent Lid ocaine Plain local anesthesic utilizing aseptic technique Location Medial nail border , T5 Progress Notes * Mauro GRACE ADOB: 1 (83 yo M)Acc No.[id number]:08/26/2023 Progress Notes Patient:?Mauro Grace Provider:?Afshan Michael DPM :1940???Age:83 Y???Sex:Male Golden e:08/26/2023 Address: [address], [facility] Pcp:Keith Diaz MD Subjective: * Chief Complaints: [...] ?Exercise: work, fishing. ?Marital status: . 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 * Medications:?TakingMultivita min - Tablet 1 tablet [...] - M79.675? Plan: * Treatment: 2.?Ingrown nail?Procedure: 70844-Aanrqtai Plate * Procedures:?Nail Avulsion:?Location?Medial nail border , [...] Motrin was recommended for pain or discomfort (30175) , Pt DEFERS matricectomy.? * Procedure Codes:?18300 Avuls ion Plate, Modifiers: T5 * Preventive [...] Michael DPM Date:?2023 Generated for Oliver baker/Chan/Rodrigue on:?09/30/2024 03:27 PM EDT History and Physical [...]
--- NOTE | ~2024-10-01 | FL_ITS ---
EXAMINATION: FL GUIDANCE ONLY HISTORY: medial branch RFA bilateral COMPARISON: None available. TECHNIQUE: Fluoroscopy time: 0.49 minutes. Cumulative Dose: 20.73 mGy. DAP: 6.165 mGym2 Images: 4. FINDINGS: Images demonstrate needles in the regions of the bilateral L3-4, L4-5, and L5-S1 facet joints. FL/FL guidance in OR IMPRESSION: Fluoroscopy during procedure. Please see procedure report for additional information. Electronically signed by: Sam Dalal MD 10/01/2024 12:21 PM EDT
--- NOTE | 2024-10-01 07:59 | HO.ANESPROP2 ---
[facility] Active Problems Active Problems: All Active Problems Lumbar spondylosis (Acute) Spinal stenosis (Acute) Past Medical History Medical History (Updated 10/01/24 @ 09:15 by Lazara Calderon RN) Subdural bleeding Subdural bleeding Brain bleed Chronic renal insufficiency CAD (coronary artery disease) Angina pectoris Aneurysm of ascending aorta Spinal stenosis Renal cyst PSA elevation Hypertension Hyperlipemia Family History Family history of problems with anesthesia: No Surgical History Surgical History (Updated 09/29/24 @ 14:21 by Maria Fernanda Das RN) Hx of bilateral cataract extraction Hx of bilateral hip replacements Hx of heart artery stent H/O colonoscopy History of Problems with Anesthesia: No Social History Social History Patient Tobacco Use Status: Former Tobacco user Tobacco use type: Cigar Have you been hit, kicked, punched, or otherwise hurt by someone within the past year? If so, by whom?: No Are you DNR?: No Advance Directives: No Advance Directives Information Provided: Yes Meds Allergies Allergy/AdvReac Type Severity Reaction Status Date / Time No Known Allergies Allergy Verified 09/01/24 08:51 Home Medications ?Medication ?Instructions ?Recorded ?Confirmed ?Last Taken ?Type aspirin 81 mg capsule 81 mg PO DAILY 11/10/23 09/29/24 09/23/24 History metoprolol succinate 25 mg 25 mg PO DAILY 11/10/23 09/29/24 10/01/24 History tablet,extended release 24 hr (Toprol XL) nifedipine 60 mg tablet,extended 60 mg PO DAILY 11/10/23 09/29/24 10/01/24 History release 24 hr latanoprost 0.005 % eye drops 1 drp ophthalmic (eye) DAILY 11/13/23 09/29/24 09/30/24 History mirtazapine 7.5 mg tablet 7.5 mg PO BEDTIME 11/13/23 09/29/24 09/30/24 History multivitamin 1 tab PO DAILY 11/13/23 09/29/24 10/01/24 History atorvastatin 80 mg tablet 80 mg PO DAILY 06/04/24 09/29/24 10/01/24 History Exam Height,Weight and Vital Signs: Height 5 ft 9 in Weight 92.079 kg Airway Mallampati Class: II TM Dist: >3cm Neck ROM: Full Heart: rrr Lungs: cta Assessment and Plan Assessment Anesthesia Assessment: Anesthesia Plan Discussed and Chart Reviewed Final Anesthetic Review Family History of Problems with Anesthesia: No History of Problems with Anesthesia: No NPO: Yes ASA Class: III Final Preanesthetic Review: No Changes in Pt Med Stat, Meds/Allgs Chart Reviewed and Consent Obtained/Reviewed Patient Risk: Intermediate Procedure Risk: Low Anesthetic Plan Anesthetic Plan: MAC: Disposition: Standard PACU
--- NOTE | 2024-10-01 08:46 | PC.NURSE ---
message left for patient no show request patient to call back this nurse in message
[2024-10-01 08:49] VITALS: BP 120/77; PULSE 89; RESP 20; TEMP 36.4; O2SAT 95; BMI 30.3
--- NOTE | 2024-10-01 09:54 | MHC.SHP ---
Pre-Procedural Eval Section A - 24 Hr Update-Section A only Date of Service: 10/01/24 The patient is an INPATIENT: No Changes since office visit: Yes Patient answered all questions The patient has been examined within 24 hours of the surgical procedure. The History & Physical has been completed within 30 days and I have reviewed it.: No Section B - Complete if H&P > 30 days Chief Complaint: Spondylosis without myelopathy or radiculopathy Details of Present Illness: as above Relevant Family History (Specify if Yes): No Relevant Social History: None Present Medications: see Short Stay Collaborative assessment Medical History: No relevant PMH History of Previous Operations: No relevant previous surgery Allergies: Allergies Allergy/AdvReac Type Severity Reaction Status Date / Time No Known Allergies Allergy Verified 09/01/24 08:51 Review of Systems Sugical H&P ROS: Negative: Constitution, Cardiovascular, Respiratory, Neurological, Psychiatric, Hem-Onc, Allergic/Immunologic, Gastrointestinal, Genitourinary, Musculoskeletal, Integumentary, Endocrine and Eyes/Ears/Nose/Throat Exam Surgical H&P Exam: Normal: HEENT, Normal: Heart, Normal: Lungs, Normal: Extremities, Normal: Abdomen, Normal: Skin and Normal: Neurological Plan I have reviewed the history and physical and performed a pertinent physical examination on my patient. No changes have occurred unless specified. Time Spent With Patient Time: Total time managing care of this patient today ____ minutes.
[2024-10-01 10:59] VITALS: BP 92/57; PULSE 70; RESP 16; TEMP 36.8; O2SAT 90
[2024-10-01 11:04] VITALS: BP 88/54; PULSE 74; RESP 20; O2SAT 95
--- NOTE | 2024-10-01 11:07 | PM.OP ---
Brief Operative Note Date of Service: 10/01/24 Pre-op diagnosis: Spondylosis lumbar without myelopathy or radiculopathy Post-op diagnosis: same Procedure: Radiofrequency ablation of the L3, L4, dorsal ramus L5 medial branches bilateral. Implants: None Surgeon: Moose Gonzales MD Anesthesia: MAC Was an Type Rolling Machine Operator used for this Procedure?: No Estimated blood loss (mL): 0 Condition: stable Disposition: PACU
[2024-10-01 11:09] VITALS: BP 121/71; PULSE 77; RESP 20; O2SAT 95
--- NOTE | 2024-10-01 11:09 | P.OP_ITS ---
Operative Note Operative Note Date of Service: 10/01/24 Narrative: Radiofrequency ablation of medial branches L3,L4 dorsal ramus L5 bilateral.? ? ?Informed consent was explained to the patient. All questions were explained and? answered.? The patient was taken inside the operating room where he was positioned prone on the operating table. ASA monitors were applied and patient was minimally sedated. He was able to answer my questions throughout the procedure. Time-out was performed delineating correct site, side, the nature of the procedure, patient's allergy, . All operating room staff was participating in OR time-out procedure. ? ? The lower back was prepped with ChloraPrep and draped with sterile towels. Sterilely draped C-arm was brought over the operating field and sq picture of L4-, L5 vertebra and S1 AREA were delineated on the screen.? Point of interest w ere delineated as confluence of superior articular process of L4 and L5 vertebra bilaterally with corresponding transverse processes as well as confluence of the sacral alae bilaterally with superior articular process of S1.? The projection of the point of interest to the skin were injected with the small amount of local anesthetic lidocaine 2% mixed with ropivacaine 0.5% 1-1 approcimately 1 cc.? After that 18 gauge 100 mm radiofrequency cannula were driven to the point of interest under x-ray guidance. After needles gently contacted the bones at the point of interests, the stylettes were removed and the RFA probes were inserted. Motor stimulation was applied to each of the positioned separately. The patient denies moderate stimulation in the lower extremities. After that the probes were removed and the needles were injected with small amount of mixture of lidocaine 2% mixed with Kenalog 10 mg equally divided among the all 6 needle insertion. After that the energy application was made using 89 degrees centigrade temperature and time 90 seconds. Upon completion of the 1st application of the energy the needles were rotated 180 degrees and application of the energy was repeated. Upon completion of the energy application the needles were removed and sterile Band-Aids were applied. The patient tolerated the procedure well. He was taken outside of the operating room to recovery room where he recovered uneventfully.
[2024-10-01 11:11] VITALS: BP 120/69; PULSE 75; RESP 20; TEMP 36.7; O2SAT 95
== END 2024-10-01 12:15 | disposition home or self-care (01) ==
PROVIDERS: PCP Internal Medicine; Visit Provider Anesthesiology
PROC: (CPT 64635; principal; 2024-10-01 10:40)
DX: M47.816 Spondylosis without myelopathy or radiculopathy, lumbar region (principal); M48.00 Spinal stenosis, site unspecified; G89.29 Other chronic pain; M54.50 Low back pain, unspecified; I25.10 Atherosclerotic heart disease of native coronary artery without angina pectoris; Z95.5 Presence of coronary angioplasty implant and graft; I10 Essential (primary) hypertension; E78.5 Hyperlipidemia, unspecified; N28.1 Cyst of kidney, acquired; Z79.82 Long term (current) use of aspirin; Z79.899 Other long term (current) drug therapy; Z79.01 Long term (current) use of anticoagulants
CPT/HCPCS: 64635; 64636 ×2; J2003; J2250; J2405; J2704; J2795; J3010; J3301

== ENCOUNTER → 2024-10-01 08:46 | Outpatient (BNV) | payer MEDICARE, SELFPAY | PROVIDERS: PCP Internal Medicine; Visit Provider Anesthesiology | DX: M47.816 Spondylosis without myelopathy or radiculopathy, lumbar region (principal) | CPT/HCPCS: 64635; 64636 ==

== ENCOUNTER 2024-11-05 10:13 | Outpatient (AMB) | payer MEDICARE, SELFPAY ==
--- NOTE | 2024-11-05 10:26 | A.OFFVIS_ITS ---
Vital Signs 11/05/24 10:31 Height 5 ft 9 in Weight 203 lb 9 oz BMI 30.1 BP 132/83 Blood Pressure Location Rt brachial Position Sitting Pulse 86 Pulse Source Pulse Oximeter Pulse Oximetry (%) 95 Oxygen Delivery Method Room Air Intake Visit Reasons: S/p B/l L3-L4-DRL5 MB RFA 10/01/24 Intake Note: Pain today 0/10 Neonatal Intensive Care Nurse Required: No Accompanied by: Self / Same As Patient Allergies No Known Allergies Allergy (Verified 11/05/24 10:32) HPI Comments Details: The patient is an 84-year-old male presenting 1 month s/p bilateral L3 L4 DR L5 RFA. Reports no improvement in his back pain since the procedure. Despite previous treatment with steroid injections aimed at arthritis in the joints, the pain remains acute when walking, predominantly affecting the lower back without radiating to the legs. The pain subsides when sitting, lying down, or sleeping, allowing some relief when not active. The patient explored surgical options but was deterred by the proposed length of rehabilitation. However, newer, minimally invasive surgical techniques were discussed for potential future consideration. The pain is primarily aggravated by ambulation and is described as a significant barrier to mobility, contributing to leg fatigue but not extending into the legs. - Onset: Began a couple of years ago - Quality: Localized lower back pain - Location: Lower back - Radiation: No radiation into legs - Exacerbating Factors: Walking - Relieving Factors: Sitting, lying down, or sleeping; possible positioning adjustment - Interference: Significant impact when walking, causing tiredness in legs - Affect: Pain affects mobility, causing tiredness in legs - Analgesia: Previous steroid injections for arthritis pain - Adverse Effects: None reported from medications - Activities of Daily Living: Pain impacts ambulation; patient experiences tiredness in legs when walking - Aberrant Drug Related Behaviors: None reported PFSH Medical History (Updated 10/01/24 @ 09:15 by Lazara Calderon RN) Subdural bleeding Subdural bleeding Brain bleed Chronic renal insufficiency CAD (coronary artery disease) Angina pectoris Aneurysm of ascending aorta Spinal stenosis Renal cyst PSA elevation Hypertension Hyperlipemia Surgical History (Updated 09/29/24 @ 14:21 by Maria Fernanda Das RN) Hx of bilateral cataract extraction Hx of bilateral hip replacements Hx of heart artery stent H/O colonoscopy Social History Patient Tobacco Use Status: Former Tobacco user Tobacco use type: Cigar Review of Systems Const Details: - Musculoskeletal: Reports lower back pain when walking - Neurological: Denies pain radiation into legs Physical Exam Vital Signs: Last Vital Signs Pulse 86 11/05/24 10:31 BP 132/83 11/05/24 10:31 Pulse Ox 95 11/05/24 10:31 Oxygen Delivery Method Room Air 11/05/24 10:31 BMI result Body Mass Index 30.1 General: awake, alert, oriented. Answers questions appropriately. Fully engaged in examination. Skin: warm, dry, intact HEENT: Normocephalic. Hearing intact. Cardiac: External chest normal in appearance. Respiratory: No cough, audible wheezing or stridor. Abdomen: without gross distension. MS: No obvious swelling or deformities. Able to transition from sit to stand unassisted. Ambulates with bilaterally normal heel strike and toe off Maintains slight forward flexion posture when walking Neurological: Oriented to person, place, time and situation. Thought process intact. No gait abnormalities appreciated. Psychiatric: Appropriate mood and affect. Good judgment and insight. Results Reviewed Results Reviewed: 01/05/24 MRI LS FINDINGS: VERTEBRAL BODIES AND PARASPINAL STRUCTURES: There is a sigmoid scoliosis, convex to the right in the mid lumbar region, unchanged. On the sagittal images there are mild grade 1 anterolistheses of L2 on L3 and L4 on L5, and there is a retrolisthesis of L1 on L2. 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 There is marked narrowing of intervertebral disc height with partial fusion of the vertebral bodies at L5-S1. There are prominent bilateral lateral osteophytes at this level. Narrowing of intervertebral disc height is also demonstrated at other levels with loss of signal consistent with multilevel disc desiccation. There are mild degenerative endplate contour changes with mild edematous signal anteriorly and toward the right at L5 which has developed since the prior study. There are ankylosis changes of the sacroiliac joints. Vertebral body heights are maintained and there are no acute fractures. There are Schmorl's nodes at adjacent endplates at multiple levels. There is increased T1 and T2 signal in the body of L2 diffusely consistent with a large hemangioma. A small hemangioma is seen in the body of T11. Overall, marrow signal is slightly heterogenous. The infrarenal abdominal aorta is tortuous. There are multiple bilateral parapelvic and cortical renal cysts which do not need further imaging evaluation. The visualized pelvic structures are unremarkable. CONUS MEDULLARIS AND CAUDA EQUINA: Normal, terminating at the level of L1-L2. The lower thoracic spinal cord appears normal. There is crowding of the cauda equina nerve roots at multiple levels due to spondylosis, most severe at L2-L3 and L3-L4. The filum terminale appears normal. SPINAL LEVELS: T11-T12: There is moderate bilateral facet arthropathy with focal right-sided ligamentum flavum thickening, which narrows the right subarticular recess. There is also distortion of the thecal sac on the right. There is a small posterior disc protrusion with an annular fissure in the midline with some distortion of the ventral thecal sac and narrowing of the subarticular recesses. The neural foramina are patent bilaterally. T12-L1: The facet joints appear normal bilaterally. Disc contour is normal. There is no central stenosis or foraminal narrowing. L1-L2: There is mild bilateral facet arthropathy. There is a broad-based posterior disc protrusion which slightly more prominent on the right and there is mild flattening of the ventral thecal sac with narrowing of the right subarticular recess. There is mild central stenosis. There is a right foraminal disc protrusion impinging on the exiting right L1 nerve root. L2-L3: There is moderate to severe bilateral facet arthropathy with ligamenta flava hypertrophy and facet joint effusions. There is a broad-based posterior disc protrusion which compresses the thecal sac and markedly narrows the bilateral subarticular recesses. There is severe central stenosis. There are left greater than right foraminal disc protrusions, and there is narrowing of the left neural foramen from a disc protrusion and facet osteophyte. Milder foraminal narrowing is seen on the right. L3-L4: There is markedly severe bilateral facet arthropathy with ligamenta flava hypertrophy and a possible synovial cyst developing anteromedially on the left. There is a broad-based posterior disc protrusion which compresses the thecal sac and markedly narrows the bilateral subarticular recesses, which appears slightly more prominent on the left. There is a left foraminal disc protrusion extending far laterally with impingement on the exiting and extraforaminal segments of the left L3 nerve root. A smaller disc protrusion is seen on the right. L4-L5: There is severe bilateral facet arthropathy with ligamenta flava hypertrophy. There is unroofing of the disc as a result of anterolisthesis and there is mild narrowing of the bilateral subarticular recesses with moderate central stenosis. There are bilateral inferior foraminal disc protrusions. L5-S1: There are moderate to severe bilateral facet arthropathic changes. There is a posterior disc osteophyte complex which is more prominent on the left with some flattening of the ventral thecal sac, and disc osteophytes extend into the neural foramina bilaterally with impingement on the exiting L5 nerve roots. There is no central stenosis. MR/MR lumbar spine wo con IMPRESSION: 1. At L2-L3 there is facet arthropathy and there is a broad-based posterior disc protrusion. There is severe central stenosis and there is narrowing of the bilateral subarticular recesses. There is left greater than right foraminal narrowing. 2. At L3-L4 there is markedly severe facet arthropathy. There is a broad-based posterior disc protrusion with marked narrowing of the bilateral subarticular recesses. There is a left foraminal disc protrusion extending far laterally with impingement on the exiting and extraforaminal segments of the left L3 nerve root. 3. At L4-L5 there is severe facet arthropathy. There is anterolisthesis and there is moderate central stenosis. 4. At L5-S1 there are facet arthropathic changes and there is a posterior disc osteophyte complex. There is no central stenosis. There are bilateral foraminal disc osteophyte complexes impinging on the exiting L5 nerve roots. 5. At L1-L2 there is facet arthropathy and there is a posterior disc protrusion. There is mild central stenosis. There is a right foraminal disc protrusion impinging on the exiting right L1 nerve root. Assessment & Plan Assessment & Plan (1) Spinal stenosis: Code(s): M48.00 - Spinal stenosis, site unspecified Category: Medical (2) Lumbar spondylosis: Code(s): M47.816 - Spondylosis without myelopathy or radiculopathy, lumbar region Category: Medical Plan An epidural steroid injection is scheduled to be performed before the move to [place] to assess pain amelioration. This strategy prioritizes a less invasive approach before consideration of potential surgical intervention. Should injections not produce significant relief, establishing a surgical consult in [place] will be recommended. This plan considers the patient?s timeline for relocation and aims for continuity in managing severe osteoarthritis impacting the lower back. During the conversation, potential interventions for managing pain due to spinal stenosis were discussed. Risks associated with the procedure were explained, and the patient expressed willingness to consider this post-evaluation of less invasive routes. The primary non-surgical intervention agreed upon was to administer an epidural steroid injection, targeting the stenotic area with anticipated improvements in pain management and mobility. The patient is relocating to [place] and was advised to coordinate care continuation there if further surgical consultation becomes necessary. Follow-up requirements and procedure timelines before relocation were emphasized. Will schedule for fluoroscopy guided bilateral L2-3 transforaminal epidural steroid injection with local anesthetic. Patient was informed and verbally consented to the use of an ambient scribe for clinic note documentation during this visit. Patient Instructions: - Proceed with scheduling an epidural steroid injection promptly - Plan for potential surgical consultation in [place] if symptoms persist - Coordinate care transition with healthcare providers in [place] - Monitor for relief from the injection, and report any significant changes in symptoms - Engage in activities within comfort limits, avoiding exacerbation of pain Coding Level of Care Code Est Pt Level 3 (15571) Complex EM visit Add On G2211 Diagnoses Spinal stenosis M48.00 Lumbar spondylosis M47.816
[2024-11-05 10:31] VITALS: BP 132/83; PULSE 86; O2SAT 95; BMI 30.1
--- OUTSIDE RECORDS SUMMARY | 2024-11-05 10:34 | XMS_ITS | Clinical Summary ---
Author Organization [facility] [address] [facility] Address [address] [place] [address] Phone Care Team Providers Care Blind Installer Name Role Phone Keith Diaz MD Primary Care Provider [phone] Allergies No known active allergies Medications ticagrelor (BRILINTA) 90 mg tablet Take 1 tablet (90 mg total) by mouth 2 (two) times a day. Active latanoprost (XALATAN) 0.005 % ophthalmic solution Administer 1 drop into both eyes at bedtime. Active gm-gbz-DF-vit R-cyjzrk-bfsylzj (PreserVision AREDS 2 Plus MV) 200 mcg-15 mcg- 5 mg-1 mg capsule Take 1 capsule by mouth 1 (one) time each day. Active atorvastatin (LIPITOR) 40 mg tablet Take 1 tablet (40 mg total) by mouth 1 (one) time each day. 12/20/19 23 Active albuterol HFA (PROAIR HFA ; PROVENTIL HFA ; VENTOLIN HFA) 90 mcg/actuation inhaler Inhale 2 puffs every 6 (six) hours if needed for wheezing or shortness of breath. 11/05/19 23 Active NIFEdipine CC (ADALAT CC) 60 mg 24 hr tablet Take 1 tablet (60 mg total) by mouth 1 (one) time each day. Active multivit-min/iro n/folic acid/K (ADULTS MULTIVITAMIN ORAL) Take by mouth daily. Active atorvastatin (LIPITOR) 80 mg tablet TAKE 1 TABLET BY MOUTH EVERY DAY 90 tablet 1 09/09/19 25 Active metoprolol succinate (TOPROL-XL) 25 mg 24 hr tabletIndication s:Atheroscleroti c heart disease of teller coronary artery with other forms of angina pectoris ([facility] V24) TAKE 1 TABLET BY MOUTH EVERY DAY 90 tablet 3 10/28/19 25 Active aspirin 81 mg EC tabletIndication s:Atheroscleroti c heart disease of teller coronary artery with other forms of angina pectoris (CMS/HCC V24) TAKE 1 TABLET BY MOUTH EVERY DAY 90 tablet 2 10/28/19 25 Active aspirin 81 mg EC tablet Take 1 tablet (81 mg total) by mouth 1 (one) time each day. 06/10/20 23 025 Discontinued metoprolol succinate (TOPROL-XL) 25 mg 24 hr tablet Take 1 tablet (25 mg total) by mouth 1 (one) time each day. 12/17/19 025 Discontinued Active Problems Problem Noted Date Diagnosed Date [...] is adequate today. Aneurysm of ascending aorta ([facility] V24) 2022 Overview (08/26/2023): Last Assessment & [...] Encounters Date Type Department Care Team Description 09/29/2024 Telephone [facility] [address] [place] [address] [place] [phone] Keith Diaz MD Medical Records 09/17/20[address] [facility] [address] [facility] [address] [place] [phone] Palak Langley [place] echo results 09/16/2024 8:00 AM EDT Ancillary Procedure [facility] [address] [place] [phone] Aneurysm of the ascending aorta, without rupture ([facility] V24) from Last 3 Months Surgical History Surgery Date Site/Laterality Comments COLONOSCOPY PROCEDURE: HISTORICAL COLONOSCOPY OTHER SURGICAL HISTORY Bilateral PROCEDURE: HISTORY OTHER; COMMENT: Hip replacement Medical History Medical History Date Comments CKD (chronic kidney disease) stage 3, GFR 30-59 ml/min ([facility] V24, [facility] V28) DX:CKD (chronic kidney disea se) stage 3, GFR 30-59 ml/min ([facility]) PSA elevation 08/07/2021 DX:PSA elevation Spinal stenosis [...] 8:00 AM EDT Office Visit Pulmonolgy - [place] [address] [facility] [address] [place] [address] Marleni Monroy MD [address] [facility] [address] [place] [address] 03/31/2025 8:50 AM EDT Office Visit [facility] [address] [facility] [address] [place] [address] Jorge Dong MD [address] [place] [address] [address] [place] [address] Health Maintenance Due Date Last Done Comments [...] Aneurysm of the ascending aorta, without rupture ([facility] V24) from Last 3 Months Results * TRANSTHORACIC ECHOCARDIOGRAM (TTE) COMPLETE (09/16/2024 8:54 AM EDT) BSA 2.12 m2 CV PACS Left At[facility] Minor [place] 5.6 cm CV PACS Left At[facility] Major [place] 5.7 cm CV PACS LA Area Sys [...] Volume 83 mL CV PACS MV Deceleration [place] 3.8 m/s2 CV PACS E Wave Deceleration [...] the study quality was technically difficult. Denise A Gil ORACLE MANUFACTURING CONSULTANT CV ECHO PROCEDURES Final Re sult from Last 3 Months Insurance MEDICARE [facility] Care Teams Blind Installer Relationship Specialty Start Date End Date Keith Diaz MD [address] [place] [address] PCP - General 07/31/22
--- OUTSIDE RECORDS SUMMARY | 2024-11-05 10:34 | XMS_ITS | Patient Health Record ---
Author Organization [facility] Address [address] [facility] [place] [address] Care Team Providers Care Rock Room Worker Name Role Phone Keith Diaz MD Primary Care Provider Lj Berger Unavailable [phone] Allergies No Known Allergies Reason For Referral [...] Ulcer of toe of right foot (disorder) ([id number]) Skin ulcer of toe of right foot, limited to breakdown of skin (L97.511) Active confirmed Nonapplicable Plan Of Treatment Pending Test Test Name Order Date 01041-Jxahuqwq Plate 12/10/2016 95233-Rdakptyh Plate 08/26/2023 40793- Debride <25 sq cm 09/09/2023 32533- Debride <25 sq cm 12/26/2016 52789-XTMDMSTI OF HEMATOMA/FLUID 021 Insurance Providers Payer Name Payer Address Payer Phone Subscriber Number Group Number Insured Name Patient Relationship to Insured Coverage Start Date Coverage End Date Medicare National [employer] [address] [place] [address] [id number] Mauro Grace Self - patient is the insured [employer] [address] [place] [address] [id number] Mauro Grace Self - patient is the insured Medical (General) History Medical History History ICD Code Cataracts Hypertension Measles Chicken pox Joint implants/screws Heart disease Spina bifida Vascular grafts Surgical History Surgery Date(Month/Year) cataract surgery detached retina hip replacement stent 02/2023 Hospitalization History Reason Date(Month/Year) brain bleed 10/2022
--- OUTSIDE RECORDS SUMMARY | 2024-11-05 10:35 | XMS_ITS ---
Author Organization [facility] Address [address] [facility] [place] [address] Care Team Providers Care Java User Interface Developer Name Role Phone Keith Diaz MD Primary Care Provider Lj Berger Unavailable [phone] BlackAbelAfshan Unavailable [phone] Allergies No Known Allergies REASON FOR VISIT [...] Ulcer of toe of right foot (disorder) ([id number]) Skin ulcer of toe of right foot, limited to breakdown of skin (L97.511) Active confirmed Nonapplicable Vital Signs Height 5 ft 9 in in 09/09/2023 Weight 195 lbs 09/09/2023 BMI 28.79 kg/m2 09/09/2023 Procedures Procedure Date Ordered Date Performed Result Body Sit e 11106- Debride <25 sq cm 09/09/2023 N/A Encounters Encounter Location Date Provider [facility] [address] 09/09/2023 Afshan Michael Skin ulcer of toe [...] INSTRUCTIONS.pdf) Pending Test Test Name Order Date 14691- Debride <25 sq cm 09/09/2023 Next Appt [...] of the wound post debridement is stable (59272) Progress Notes * Mauro GRACE ADOB: (83 yo M)Acc No.[id number]:09/09/2023 Progress Notes Patient:?Mauro Grace Provider:?Afshan Michael DPM :1940???Age:83 Y???Sex:Male Golden e:09/09/2023 Address:[address], [place], [place] Pcp:Keith Diaz MD Subjective: * Chief Complaints: [...] ?Exercise: work, fishing. ?Marital status: . 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 * Medications:?TakingMultivita min - Tablet 1 [...] of the wound post debridement is stable (19354).? * Procedure Codes:?04492 ACTIV E WOUND CARE/20 CM OR <, [...] Michael DPM Date:?2023 Generated for Printi olivia/Chan/eTransmitting on:?11/05/2024 10:34 AM EDT History and Physical Notes * [...]
--- OUTSIDE RECORDS SUMMARY | 2024-11-05 10:35 | XMS_ITS ---
Author Organization [facility] Address [address] [place] [address] Care Team Providers Care Social Services Assistant Name Role Phone Keith Diaz MD Primary Care Provider Lj Berger Unavailable [phone] REASON FOR VISIT JUKE BOX MECHANIC PPWK Entered Encounters Encounter Location Date Provider Diagnosis [facility] [address] [place] [address] 08/20/2023 Lj Mehta Plan Of Treatment No Information Progress Notes * Mauro GRACE ADOB: 1 (83 yo M)Acc No.[id number]:08/20/2023 Patient:?Mauro Grace :1940???Age:83 Y???Sex:Male Address:[address] [place] [address] * true * Date:? Generated for Printi olivia/Babakg/eTransmitting on:?11/05/2024 10:34 AM EDT
--- OUTSIDE RECORDS SUMMARY | 2024-11-05 10:35 | XMS_ITS ---
Author Organization [facility] Address [address] [facility] [place] [address] Care Team Providers Care Feed Adviser Name Role Phone Keith Diaz MD Primary Care Provider Lj Berger Unavailable [phone] BlackAbelAfshan Unavailable [phone] Allergies No Known Allergies REASON FOR VISIT [...] Ordered Date Performed Result Body Sit e 08401-Cyndbuyy Plate 08/26/2023 N/A Encounters Encounter Location Date Provider Diagnosis [facility] [address] [facility] [address] 08/26/2023 Afshan Black Ingrown nail L60.0 ; [...] INFECTIONS.pdf) Pending Test Test Name Order Date 83978-Ghxsivrk Plate 08/26/2023 Next Appt Details Follow Up: [...] Motrin was recommended for pain or discomfort (02555) , Pt DEFERS matricectomy Anesthesia 3cc of 1 percent Lid ocaine Plain local anesthesic utilizing aseptic technique Location Medial nail border , T5 Progress Notes * Mauro GRACE ADOB: 1 (83 yo M)Acc No.[id number]:08/26/2023 Progress Notes Patient:?Mauro Grace Provider:?Afshan Michael DPM :1940???Age:83 Y???Sex:Male Golden e:08/26/2023 Address: [address], [place], [facility] Pcp:Keith Diaz MD Subjective: * Chief Complaints: [...] ?Exercise: work, fishing. ?Marital status: . 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 * Medications:?TakingMultivita min - Tablet 1 tablet [...] - M79.675? Plan: * Treatment: 2.?Ingrown nail?Procedure: 89432-Zepuvbyp Plate * Procedures:?Nail Avulsion:?Location?Medial nail border , [...] Motrin was recommended for pain or discomfort (61608) , Pt DEFERS matricectomy.? * Procedure Codes:?75066 Avuls ion Plate, Modifiers: T5 * Preventive [...] Michael DPM Date:?2023 Generated for Oliver baker/Chan/Rodrigue on:?11/05/2024 10:34 AM EDT History and Physical [...]
--- OUTSIDE RECORDS SUMMARY | 2024-11-05 10:35 | XMS_ITS | Encounter Summary ---
Author Organization [facility] Address [address] [place] [address] Care Team Providers Care Rug Scratcher Name Role Phone Keith Diaz MD Primary Care Provider [phone] Encounter Details Date Type Department Care Team (Late Contact Info) Description 06/09/2024 Lab Requisition [facility] - Main Lab [address] [facility] [place] [phone] Guy Capellan MD [address] [facility] [address] [place] [address] Elevated prostate specific antigen (PSA) Social History [...] 8:00 AM EDT Office Visit Pulmonolgy - [place] [address] [facility] [address] [place] [phone] Marleni Monroy MD [address] [facility] 200 [place], [place] [id number] 03/31/2025 8:50 AM EDT Office Visit [facility] Cardiology [facility] [address] [place] [address] Jorge Dong MD [address] [place] [address] [place] [address] documented as of this encounter Procedures Procedure Name Priority Date/Time Associated Diagnosis Comments AP OUTSIDE CONSULT Routine 06/07/2024 Elevated prostate specific antigen (PSA) documented in this encounter Results * Anatomic pathology outside consult (06/07/2024) Final Diagnosis A. Prostate, Left Middle [place] (Core Biopsy): - Benign prostate tissue. B. Prostate, Left Lateral [place] (Core Biopsy): - Benign prostate tissue. C. Prostate, Left Middle Middle (Core Biopsy): - Benign prostate tissue. D. Prostate, Left Lateral Middle (Core Biopsy): - Benign prostate tissue. E. Prostate, Left Middle Base (Core Biopsy): - Benign prostate tissue. F. Prostate, Left Lateral Base (Core Biopsy): - Benign prostate tissue. G. Prostate, Right Middle [place] (Core Biopsy): - Benign prostate tissue. H. Prostate, Right Lateral [place] (Core Biopsy): - Benign prostate tissue. I. 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 - Tumor continuously involves 60% [...] - Prostatic acinar adenocarcinoma, grade group 5, Ledyard score (4+5=9). - Tumor continuously involves 80% of 1 of 1 tissue core. M. Prostate, Right Sided MRI Lesion (Core Biopsy): - Prostatic acinar adenocarcinoma, grade group 3, Ledyard score (4+3=7). - Tumor continuously involves 70% of 1 of 1 tissue core. 06/14/2024 2:04 PM EST [facility] ([facility]) HOSPITAL LAB Clinical Information Elevated PSA R97.20 PSA: 16.4 (02/06/24) [id number] 06/14/2024 2:04 PM [facility] ([facility] LAB Gross Description A. Prostate, Left Middle [place] Biopsy: Received, properly labeled, are two H and E stained slides and two unstained slides. B. Prostate, Left Lateral [place] Biopsy: Received, properly labeled, are two H [...] two unstained slides. G. Prostate, Right Middle [place] Biopsy: Received, properly labeled, are two H and E stained slides and two unstained slides. H. Prostate, Right Lateral [place] Biopsy: Received, properly labeled, are two H [...] two unstained slides. /al 06/14/2024 2:04 PM [facility] ([facility]) [facility] Disclaimer Unless otherwise specified, all tissue is 10% NB formalin fixed and paraffin embedded. Technical pathology services provided by [facility] Urology at [facility] [address], [place] [address] (CLIA #[id number]/Royal Mireles MD, Mortgage Processing Clerk) 06/14/2024 2:04 PM EST [facility] Tissue Prostate / Unknown 06/07/20242023 1:17 [...] MD LAB PATHOLOGY ORDERABLES Fi nal Result [facility] ([facility]) [facility] [address] [place] [address], documented in this encounter Visit Diagnoses Diagnosis Elevated prostate specific antigen (PSA) documented in this encounter Care Teams Rug Scratcher Relationship Specialty Start Date End Date Keith Diaz MD [facility] [place] [address] PCP - General 07/31/22 documented as of this encounter
== END 2024-11-05 10:53 | disposition home or self-care (01) ==
LOC: HO.PMC 10:15
PROVIDERS: PCP Internal Medicine; Visit Provider Registered Nurse Emergency
DX: M48.00 Spinal stenosis, site unspecified (principal); M47.816 Spondylosis without myelopathy or radiculopathy, lumbar region
CPT/HCPCS: 99213; G2211

== ENCOUNTER → 2024-11-05 10:13 | Outpatient (BNVA) | payer MEDICARE, SELFPAY | PROVIDERS: PCP Internal Medicine; Visit Provider Registered Nurse Emergency | DX: M48.00 Spinal stenosis, site unspecified (principal); M47.816 Spondylosis without myelopathy or radiculopathy, lumbar region | CPT/HCPCS: 99212 ==

== ENCOUNTER 2024-11-23 06:08 | Outpatient (REF) | payer MEDICARE, SELFPAY ==
--- NOTE | ~2024-11-23 | FL_ITS ---
EXAMINATION: FL GUIDANCE ONLY HISTORY: M48.00 - Spinal stenosis, site unspecified COMPARISON: None available. TECHNIQUE: Fluoroscopy time: 0.6 minutes. Cumulative Dose: 9.53 mGy. DAP: 0.136 mGym2 Images: 2. FINDINGS: Fluoroscopic spot films of the thoracolumbar junction in the AP projection demonstrate needles and contrast material in the regions of the bilateral L2-3 facet joints. FL/FL guidance in treatment room IMPRESSION: Fluoroscopy during procedure. Please see procedure report for additional information. Electronically signed by: Sam Dalal MD 11/23/2024 09:44 AM EDT
--- OUTSIDE RECORDS SUMMARY | 2024-11-23 06:11 | XMS_ITS | Clinical Summary ---
Author Organization [facility] [address] [facility] Address [address] [place] [address] Phone Care Team Providers Care Supervisor Gas Meter Repair Name Role Phone Keith Diaz MD Primary Care Provider [phone] [phone] Allergies No known active allergies Medications ticagrelor (BRILINTA) 90 mg tablet Take 1 tablet (90 mg total) by mouth 2 (two) times a day. Active latanoprost (XALATAN) 0.005 % ophthalmic solution Administer 1 drop into both eyes at bedtime. Active gt-tnw-HR-vit M-szflap-jxjunhs (PreserVision AREDS 2 Plus MV) 200 mcg-15 [...] hr tabletIndication s:Atheroscleroti c heart disease of [place] coronary artery with other forms of angina pectoris ([facility] V24) TAKE 1 TABLET BY MOUTH EVERY DAY 90 tablet 3 10/28/19 25 Active aspirin 81 mg EC tabletIndication s:Atheroscleroti c heart disease of [place] coronary artery with other forms of angina [...] is adequate today. Aneurysm of ascending aorta ([facility] V24) 2022 Overview (08/26/2023): Last Assessment & [...] Type Department Care Team Description 09/29/2024 Telephone [facility] Cardiology [facility] [address] [place] [address] [place] [phone] Keith Diaz MD Medical Records 09/17/[address] [facility] [address] [facility] [address] [place] [phone] Palak L[place] echo results 09/16/2024 8:00 AM EDT Ancillary Procedure [facility] Cardiology [facility] [address] [place] [phone] Aneurysm of the ascending aorta, without rupture ([facility] V24) from Last 3 Months Surgical History Surgery Date Site/Laterality Comments COLONOSCOPY PROCEDURE: HISTORICAL COLONOSCOPY OTHER SURGICAL HISTORY Bilateral PROCEDURE: HISTORY OTHER; COMMENT: Hip replacement Medical History Medical History Date Comments CKD (chronic kidney disease) stage 3, GFR 30-59 ml/min ([facility] V24, [facility] V28) DX:CKD (chronic kidney disea se) stage 3, GFR 30-59 ml/min ([facility]) PSA elevation 08/07/2021 DX:PSA elevation Spinal stenosis [...] 8:00 AM EDT Office Visit Pulmonolgy - [place] [address] [facility] [address] [place] [address] Marleni Monroy MD 175 [facility] 200 [place] [address] 03/31/2025 8:50 AM EDT Office Visit [facility] [address] [facility] [address] [place] [address] Jorge Dong MD [address] [place] [address] [address] [place] [address] Health Maintenance Due Date Last Done Comments [...] Aneurysm of the ascending aorta, without rupture ([facility] V24) from Last 3 Months Results * TRANSTHORACIC ECHOCARDIOGRAM (TTE) COMPLETE (09/16/2024 8:54 AM EDT) BSA 2.12 m2 CV PACS Left Atrium Minor [place] 5.6 cm CV PACS Left Atrium Major [place] 5.7 cm CV PACS LA Area Sys [...] Volume 83 mL CV PACS MV Deceleration [place] 3.8 m/s2 CV PACS E Wave Deceleration [...] quality was technically difficult. Denise A Gil CERTIFIED MAINTENANCE WELDER CV ECHO PROCEDURES Final Re sult from Last 3 Months Insurance MEDICARE [facility] Care Teams Supervisor Gas Meter Repair Relationship Specialty Start Date End Date Keith Diaz MD [address] [place] [address] PCP - General 07/31/22
== END 2024-11-23 06:09 | disposition home or self-care (01) ==
LOC: CF 06:08
PROVIDERS: Visit Provider Anesthesiology
DX: M54.16 Radiculopathy, lumbar region (principal); M48.00 Spinal stenosis, site unspecified
CPT/HCPCS: 64483; J1100; J2003; Q9967

== ENCOUNTER 2024-11-23 07:31 | Outpatient (AMB) | payer MEDICARE, SELFPAY ==
[2024-11-23 07:36] VITALS: BP 140/79; PULSE 85; O2SAT 96
--- NOTE | 2024-11-23 07:36 | MHC.OFFVIS ---
Vital Signs 11/23/24 07:36 11/23/24 08:15 Weight 203 lb BP 140/79 H 140/79 H Blood Pressure Location Lt brachial Lt brachial Position Sitting Sitting Respiration 18 Pulse 85 84 Pulse Source Pulse Oximeter Pulse Oximeter Pulse Oximetry (%) 96 95 Oxygen Delivery Method Room Air Room Air Intake Visit Reasons: BILATERAL L2, L3 TFESI/PER TARA Retirement Specialist Required: No Allergies No Known Allergies Allergy (Verified 11/23/24 07:36) PFS Medical History (Updated 10/01/24 @ 09:15 by Lazara Calderon, ROSE) Subdural bleeding Subdural bleeding Brain bleed Chronic renal insufficiency CAD (coronary artery disease) Angina pectoris Aneurysm of ascending aorta Spinal stenosis Renal cyst PSA elevation Hypertension Hyperlipemia Surgical History (Updated 09/29/24 @ 14:21 by Maria Fernanda Das RN) Hx of bilateral cataract extraction Hx of bilateral hip replacements Hx of heart artery stent H/O colonoscopy Social History Patient Tobacco Use Status: Former Tobacco user Tobacco use type: Cigar Physical Exam Vital Signs: Last Vital Signs Pulse 85 11/23/24 07:36 BP 140/79 H 11/23/24 07:36 Pulse Ox 96 11/23/24 07:36 Oxygen Delivery Method Room Air 11/23/24 07:36 Assessment & Plan Assessment & Plan (1) Spinal stenosis: Code(s): M48.00 - Spinal stenosis, site unspecified Category: Medical Plan Transforaminabilateral L2-L3 epidural steroid injection Informed consent was thoroughly explained to the patient before the procedure.? The patient came to the operating room.? He was positioned prone on operating table with a pillow under his abdomen.? Time-out was performed delineating correct site and side of the procedure, nature of the injection, name and date of of the patient. The lower back of the patient was prepped with ChloraPrep and draped with sterile utility towels.? C-arm was brought over the operating field and sq picture of L2 vertebra was demonstrated on the screen.? The right side 1st was chosen as the side of the injection.? Tilting machine ipsilateral to the left at the level of L2 the most prominent picture of the right pedicle was obtained on the screen.? 3 mm below the level of the lowest point of the pedicle projection to the skin small amount of lidocaine 1% 3-4 cc was injected to anesthetize the skin.? After that 5 in 22 gauge Quincke point needle was inserted through the skin wheal and was advanced to were the [id number] on anterior posterior , lateral and oblique views intermittently.? Injection of the contrast was performed demonstrating epidural and perineural spread of the contrast. No intravascular nor intrathecal spread of the contrast was noted. After that preservative-free lidocaine 1% 4 mL mixed with Kenalog 40 mg was injected into the needle. after that the procedure was performed on the left side of L2-L3 level in mirroring fashion. Upon completion of the injection needle was withdrawn sterile Band-Aid was applied. Patient tolerated procedure well he was taken outside of the operating room where he recovered uneventfully.? He went home without immediate complications. Orders: Orders FL guidance in treatment room Today M48.00 - Spinal stenosis, site unspecified Coding Level of Care Code Procedure Only Diagnoses Spinal stenosis M48.00
[2024-11-23 08:15] VITALS: BP 140/79; PULSE 84; RESP 18; O2SAT 95
== END 2024-11-23 08:54 | disposition home or self-care (01) ==
LOC: HO.PMCPRC 07:31
PROVIDERS: PCP Internal Medicine; Visit Provider Anesthesiology
DX: M48.062 Spinal stenosis, lumbar region with neurogenic claudication (principal)
CPT/HCPCS: 64483

== ENCOUNTER 2024-12-15 08:45 | Outpatient (AMB) | payer MEDICARE, SELFPAY ==
[2024-12-15 08:52] VITALS: BP 126/69; PULSE 88; RESP 16; O2SAT 95; BMI 29.7
--- NOTE | 2024-12-15 08:52 | MHC.OFFVIS ---
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 The patient has a history of lumbar facet arthropathy and spinal stenosis, which has been causing significant discomfort, particularly when walking. Status post bilateral L2 L3 transforaminal epidural steroid injection completed on November 23, 2024. Despite the intervention, the patient continues to experience pain, primarily during ambulation. The patient also has a history of coronary artery disease, for which a stent was placed due to 60% blockage. The stent placement has improved his cardiovascular status, but he still experiences lower back pain. Patient will be moving permanently to [place] in one-week. - Pain primarily located in the lower back - Pain exacerbated by walking - Pain persists despite steroid injection - Affect: Pain impacts mobility and daily activities - Analgesia: Managed with epidural steroid injection - Activities of Daily Living: Pain limits walking ability [facility] Medical History (Updated 10/01/24 @ 09:15 by Lazara Calderon RN) Subdural bleeding Subdural bleeding Brain bleed Chronic renal insufficiency CAD (coronary artery disease) Angina pectoris Aneurysm of ascending aorta Spinal stenosis Renal cyst PSA elevation Hypertension Hyperlipemia Surgical History (Updated 09/29/24 @ 14:21 by Maria Fernanda Das RN) Hx of bilateral cataract extraction Hx of bilateral hip replacements Hx of heart artery stent H/O colonoscopy Social History Patient Tobacco Use Status: Former Tobacco user Tobacco use type: Cigar Review of Systems Const Details: - Musculoskeletal: Reports lower back pain exacerbated by walking - Cardiovascular: Denies chest pain post-stent placement Physical Exam Vital Signs: Last Vital Signs Pulse 88 12/15/24 08:52 Resp 16 12/15/24 08:52 BP 126/69 12/15/24 08:52 Pulse Ox 95 12/15/24 08:52 Oxygen Delivery Method Room Air 12/15/24 08:52 BMI result Body Mass Index 29.7 General: awake, alert, oriented. Answers questions appropriately. Fully engaged in examination. Skin: warm, dry, intact HEENT: Normocephalic. Hearing intact. Cardiac: External chest normal in appearance. Respiratory: No cough, audible wheezing or stridor. Abdomen: without gross distension. MS: No obvious swelling or deformities. Able to transition from sit to stand unassisted. Ambulates with bilaterally normal heel strike and toe off Maintains slight forward flexion posture when walking Neurological: Oriented to person, place, time and situation. Thought process intact. Psychiatric: Appropriate mood and affect. Good judgment and insight. Results Reviewed Results Reviewed: 01/05/24 MRI LS FINDINGS: VERTEBRAL BODIES AND PARASPINAL STRUCTURES: There is a sigmoid scoliosis, convex to the right in the mid lumbar region, unchanged. On the sagittal images there are mild grade 1 anterolistheses of L2 on L3 and L4 on L5, and there is a retrolisthesis of L1 on L2. 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 There is marked narrowing of intervertebral disc height with partial fusion of the vertebral bodies at L5-S1. There are prominent bilateral lateral osteophytes at this level. Narrowing of intervertebral disc height is also demonstrated at other levels with loss of signal consistent with multilevel disc desiccation. There are mild degenerative endplate contour changes with mild edematous signal anteriorly and toward the right at L5 which has developed since the prior study. There are ankylosis changes of the sacroiliac joints. Vertebral body heights are maintained and there are no acute fractures. There are Schmorl's nodes at adjacent endplates at multiple levels. There is increased T1 and T2 signal in the body of L2 diffusely consistent with a large hemangioma. A small hemangioma is seen in the body of T11. Overall, marrow signal is slightly heterogenous. The infrarenal abdominal aorta is tortuous. There are multiple bilateral parapelvic and cortical renal cysts which do not need further imaging evaluation. The visualized pelvic structures are unremarkable. CONUS MEDULLARIS AND CAUDA EQUINA: Normal, terminating at the level of L1-L2. The lower thoracic spinal cord appears normal. There is crowding of the cauda equina nerve roots at multiple levels due to spondylosis, most severe at L2-L3 and L3-L4. The filum terminale appears normal. SPINAL LEVELS: T11-T12: There is moderate bilateral facet arthropathy with focal right-sided ligamentum flavum thickening, which narrows the right subarticular recess. There is also distortion of the thecal sac on the right. There is a small posterior disc protrusion with an annular fissure in the midline with some distortion of the ventral thecal sac and narrowing of the subarticular recesses. The neural foramina are patent bilaterally. T12-L1: The facet joints appear normal bilaterally. Disc contour is normal. There is no central stenosis or foraminal narrowing. L1-L2: There is mild bilateral facet arthropathy. There is a broad-based posterior disc protrusion which slightly more prominent on the right and there is mild flattening of the ventral thecal sac with narrowing of the right subarticular recess. There is mild central stenosis. There is a right foraminal disc protrusion impinging on the exiting right L1 nerve root. L2-L3: There is moderate to severe bilateral facet arthropathy with ligamenta flava hypertrophy and facet joint effusions. There is a broad-based posterior disc protrusion which compresses the thecal sac and markedly narrows the bilateral subarticular recesses. There is severe central stenosis. There are left greater than right foraminal disc protrusions, and there is narrowing of the left neural foramen from a disc protrusion and facet osteophyte. Milder foraminal narrowing is seen on the right. L3-L4: There is markedly severe bilateral facet arthropathy with ligamenta flava hypertrophy and a possible synovial cyst developing anteromedially on the left. There is a broad-based posterior disc protrusion which compresses the thecal sac and markedly narrows the bilateral subarticular recesses, which appears slightly more prominent on the left. There is a left foraminal disc protrusion extending far laterally with impingement on the exiting and extraforaminal segments of the left L3 nerve root. A smaller disc protrusion is seen on the right. L4-L5: There is severe bilateral facet arthropathy with ligamenta flava hypertrophy. There is unroofing of the disc as a result of anterolisthesis and there is mild narrowing of the bilateral subarticular recesses with moderate central stenosis. There are bilateral inferior foraminal disc protrusions. L5-S1: There are moderate to severe bilateral facet arthropathic changes. There is a posterior disc osteophyte complex which is more prominent on the left with some flattening of the ventral thecal sac, and disc osteophytes extend into the neural foramina bilaterally with impingement on the exiting L5 nerve roots. There is no central stenosis. MR/MR lumbar spine wo con IMPRESSION: 1. At L2-L3 there is facet arthropathy and there is a broad-based posterior disc protrusion. There is severe central stenosis and there is narrowing of the bilateral subarticular recesses. There is left greater than right foraminal narrowing. 2. At L3-L4 there is markedly severe facet arthropathy. There is a broad-based posterior disc protrusion with marked narrowing of the bilateral subarticular recesses. There is a left foraminal disc protrusion extending far laterally with impingement on the exiting and extraforaminal segments of the left L3 nerve root. 3. At L4-L5 there is severe facet arthropathy. There is anterolisthesis and there is moderate central stenosis. 4. At L5-S1 there are facet arthropathic changes and there is a posterior disc osteophyte complex. There is no central stenosis. There are bilateral foraminal disc osteophyte complexes impinging on the exiting L5 nerve roots. 5. At L1-L2 there is facet arthropathy and there is a posterior disc protrusion. There is mild central stenosis. There is a right foraminal disc protrusion impinging on the exiting right L1 nerve root. Assessment & Plan Assessment & Plan (1) Spinal stenosis: Code(s): M48.00 - Spinal stenosis, site unspecified Category: Medical (2) Lumbar spondylosis: Code(s): M47.816 - Spondylosis without myelopathy or radiculopathy, lumbar region Category: Medical Plan The patient will need to establish care with a primary care physician upon relocation to manage his ongoing health issues, including lumbar spinal stenosis and coronary artery disease. Referral to a neurosurgeon or relocation services specialist is recommended to evaluate and manage the lumbar spinal stenosis, considering the persistent pain despite previous interventions. Continued follow-up with a human resources team member is necessary to monitor the status of the coronary artery disease and ensure optimal cardiovascular health. I discussed with the patient the importance of establishing care with a primary care physician and specialists in his new location to manage his lumbar spinal stenosis and coronary artery disease. We reviewed the need for a neurosurgeon or relocation services specialist to address the persistent back pain and the role of a human resources team member in monitoring his heart health. Patient was informed and verbally consented to the use of an ambient scribe for clinic note documentation during this visit. Patient Instructions: - Establish care with a primary care physician after relocation. - Follow up with a neurosurgeon or relocation services specialist for back pain management. - Continue regular visits with a human resources team member to monitor heart health. Coding Level of Care Code Est Pt Level 3 (68145) Complex EM visit Add On G2211 Diagnoses Spinal stenosis M48.00 Lumbar spondylosis M47.816
--- OUTSIDE RECORDS SUMMARY | 2024-12-15 09:15 | XMS_ITS | Clinical Summary ---
Author Organization LL [address] [facility] Address [address] [place] [address] Phone Care Team Providers Care Practice Consultant Name Role Phone Keith Diaz MD Primary Care Provider [phone] Allergies No known active allergies Medications ticagrelor (BRILINTA) 90 mg tablet Take 1 tablet (90 mg total) by mouth 2 (two) times a day. Active latanoprost (XALATAN) 0.005 % ophthalmic solution Administer 1 drop into both eyes at bedtime. Active ey-gch-DY-vit A-rikjjw-hjhvgpk (PreserVision AREDS 2 Plus MV) 200 mcg-15 [...] EVERY DAY 90 tablet 1 5 Active metoprolol succinate (TOPROL-XL) 25 mg 24 hr tabletIndications :Atherosclerotic heart disease of [place] coronary artery with other forms of angina pectoris (CMS/[facility] V24) TAKE 1 TABLET BY MOUTH EVERY DAY 90 tablet 3 5 Active aspirin 81 mg EC tabletIndications :Atherosclerotic heart disease of [place] coronary artery with other forms of angina pectoris ([facility] V24) TAKE 1 TABLET BY MOUTH EVERY DAY 90 tablet 2 5 Active Active Problems Problem Noted Date Diagnosed Date History of cardiac catheterization 08/26/2023 Right leg swelling 07/28/2023 Overview (08/26/2023): AND REDNESS Edema of right lower extremity 07/28/2023 Trauma 07/24/2023 Overview (08/26/2023): OCCULT PVC (premature ventricular contraction) 01/17/20 23 Overview (08/26/2023): Last Assessment & Plan: The patient underwent a 24-hour Holter monitor completed January 2023 which showed frequent PACs with a PAC burden of 4.4%. He denies any palpitations or dizziness. He will continue on his current dose of metoprolol. His heart rate is adequate today. Aneurysm of ascending aorta ([facility] V24) 2022 Overview (08/26/2023): Last Assessment & [...] Encounters Date Type Department Care Team Description 12/03/2024 Telephone [facility] [address] [place] [phone] Jorge Dong MD records 09/29/2024 Telephone [facility] [address] [place] [phone] Keith Diaz MD Medical Records 09/17/2024 Telephone [facility] [address] [place] [phone] Korin Carrier, [place] echo results 09/16/2024 8:00 AM EDT Ancillary Procedure [facility] [address] [place] [address] Aneurysm of the ascending aorta, without rupture ([facility] V24) from Last 3 Months Surgical History Surgery Date Site/Laterality Comments COLONOSCOPY PROCEDURE: HISTORICAL COLONOSCOPY OTHER SURGICAL HISTORY Bilateral PROCEDURE: HISTORY OTHER; COMMENT: Hip replacement Medical History Medical History Date Comments CKD (chronic kidney disease) stage 3, GFR 30-59 ml/min ([facility] V24, [facility] V28) DX:CKD (chronic kidney disea se) stage 3, GFR 30-59 ml/min ([facility]) PSA elevation 08/07/2021 DX:PSA elevation [...] Upcoming Encounters Date Type Department Care Team ([facility] st Contact Info) Description 03/01/2025 8:00 AM EDT Office Visit Pulmonolgy - [place] [address] [place] [phone] Marleni Monroy MD [address] [address] Health Maintenance Due Date Last Done Comments [...] Aneurysm of the ascending aorta, without rupture ([facility] V24) from Last 3 Months Results * TRANSTHORACIC ECHOCARDIOGRAM (TTE) COMPLETE (09/16/2024 8:54 AM EDT) BSA 2.12 m2 CV PACS Left Atrium Minor [place] 5.6 cm CV PACS Left Atrium Major [place] 5.7 cm CV PACS [place] Area Sys [...] Volume 83 mL CV PACS MV Deceleration [place] 3.8 m/s2 CV PACS E Wave Deceleration [...] Modality Ultrasound Narrative 09/16/2024 9:28 PM EDT Left ventricle cavity size is normal. Left ventricular systolic function is in the normal range with an ejection fraction of 55-60%. No regional LV wall motion abnormalities noted. Left ventricle wall thickness is normal. Right ventricle cavity is normal. Right ventricular systolic function is normal. Aortic Valve: There is mild regurgitation. Aorta: Ascending aorta is mildly dilated at 4.0 [...] sult from Last 3 Months Insurance MEDICARE Member Subscriber Plan / Payer (Ef fective 2006-Present) Name:Mauro Grace Member ID:[id number] Relation to Subscriber:Self Name:Mauro Grace Subscriber ID:[id number] Payer ID:Not on file Group ID:Not on file Type:Medicare Address: [place] [phone] [facility] Care Teams Practice Consultant Relationship Specialty Start Date End Date Keith Diaz MD [address] [place] [address] PCP - General 07/31/22
== END 2024-12-15 09:45 | disposition home or self-care (01) ==
LOC: HO.PMC 08:46
PROVIDERS: PCP Internal Medicine; Visit Provider Registered Nurse Emergency
DX: M48.00 Spinal stenosis, site unspecified (principal); M47.816 Spondylosis without myelopathy or radiculopathy, lumbar region
CPT/HCPCS: 99213; G2211

== ENCOUNTER → 2024-12-15 08:45 | Outpatient (BNVA) | payer MEDICARE, SELFPAY | PROVIDERS: PCP Internal Medicine; Visit Provider Registered Nurse Emergency | DX: M47.816 Spondylosis without myelopathy or radiculopathy, lumbar region (principal); M48.00 Spinal stenosis, site unspecified | CPT/HCPCS: 99212 ==